=== PATIENT | female | born 1940 | race Two or more races ===

== ENCOUNTER 2017-06-04 12:19 | Inpatient (IN) | payer OTHER ==
[2017-06-04 12:52] VITALS: BMI 26.1
--- NOTE | 2017-06-04 13:55 | PDOC ---
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 Pt is uncooperative with exam; history from daughter who is a nurse and from records. Pt was at her baseline (able to walk and talk without difficulty but cared for by daughter) yesterday until around 3pm when she went for a nap. Daughter states that pt was restless but would not respond or wake up until 8 am today. Daughter describes pt as having intermittent tremors and refusal to speak, take her medications, or even to open her mouth to spit out saliva since waking. Pt normally gets lactulose TID and has not had any since noon yesterday (she's missed 3 doses, so far). Daughter states that she brings pt to hospital typically at least once yearly for the same issue and that this presentation is typical. The problem typically turns out to be hyperammonemia. Last visit to [facility] was in Apr 2016. Pt has been to [facility] since then. Primary is Dr. De La Cruz. Daughter states pt has been afebrile and had no complaint of CP, SOB, nausea, vomiting, dysuria, urinary frequency, burning on urination. Pt has complained of constipation, despite actually having diarrhea due to her lactulose. Pt currently afebrile and stable but uncommunicative. Pt clearly has a mouth full of saliva but refuses to open her mouth even to spit it out. Past History - Past Medical History Allergies/Adverse Reactions: Allergies Allergy/AdvReac Type Severity Reaction Status Date / Time aspirin Allergy Unknown Verified 06/04/17 12:52 Home Medications: Ambulatory Orders Escitalopram Oxalate [Lexapro -] 10 mg PO DAILY 06/11/14 Rifaximin [Xifaxan -] 550 mg PO BID 06/11/14 Spironolactone 25 mg PO DAILY 06/11/14 Lactulose (Oral Use) [Cephulac -] 30 gm PO TID c 05/06/16 Levofloxacin [Levaquin -] 500 mg PO DAILY@0600 #0 tablet 05/06/16 Magnesium Oxide [Mag-Ox -] 400 mg PO BID #10 tablet 05/06/16 Metoprolol Tartrate [Lopressor -] 25 mg PO DAILY tablet 05/06/16 Pantoprazole Sodium [Protonix 40Mg Ivpb (Pre-Docked)] 40 mg IVPB DAILY bag Cardiac Disorders: Yes ([place]) CVA: No COPD: No Dementia: Yes (encephalopathy) GI Disorders: Yes (ULCER) Liver Disease: Yes (cirrhosis) - Surgical History Abdominal Surgery: Yes Cholecystectomy: Yes - Immunization History Immunization Up to Date: No - Suicide/Smoking/Psychosocial Hx Smoking History: Never smoked Have you smoked in the past 12 months: No Information on smoking cessation initiated: No Hx Alcohol Use: No Drug/Substance Use Hx: No Substance Use Type: None Review of Systems - Review of Systems Able to Perform ROS?: Yes Is the patient limited Indian proficient: Yes Constitutional: Yes: Symptoms Reported. No: Chills, Diaphoresis, Fever, Loss of Appetite, Malaise, Night Sweats, Weakness HEENTM: Yes: Symptoms Reported. No: Eye Pain, Blurred Vision, Tearing Respiratory: Yes: Symptoms reported. No: Cough, Orthopnea, Shortness of Breath Cardiac (ROS): Yes: Symptoms Reported. No: Chest Pain, Edema ABD/GI: Yes: Symptoms Reported, Diarrhea (2/2 lactulose), Poor Appetite, Poor Fluid Intake. No: Abdominal Distended, Constipated, Nausea, Vomiting : Yes: Symptoms Reported. No: Burning, Dysuria, Discharge, Hematuria, Incontinence *Physical Exam - Vital Signs Last Vital Signs Temp Pulse Resp BP Pulse Ox 97.5 F L 78 18 145/90 100 06/04/17 12:20 06/04/17 12:20 06/04/17 12:20 06/04/17 12:20 06/04/17 12:20 - Physical Exam Comments: 06/04/17 13:56 Limited exam as pt is uncooperative. General Appearance: Yes: Nourished, Appropriately Dressed. No: Apparent Distress HEENT: negative: Normal ENT Inspection (unable to examine) Neck: positive: Supple. negative: Lymphadenopathy (R), Lymphadenopathy (L) Respiratory/Chest: positive: Lungs Clear (limited exam as pt would not take deep breaths), Normal Breath Sounds. negative: Chest Tender, Respiratory Distress, Accessory Muscle Use, Crackles, Rales Cardiovascular: positive: Regular Rhythm, Regular Rate, S1, S2. negative: Edema , JVD, Murmur Gastrointestinal/Abdominal: positive: Normal Bowel Sounds, Flat, Soft (000). negative: Tender, Organomegaly (none appreciated. Pt would not take deep breaths ) Neurologic: negative: Fully Oriented, Alert, Normal Mood/Affect (pt noncombative and giggles frequently. But uncooperative), Normal Response ED Treatment Course - LABORATORY CBC & Chemistry Diagram: 06/04/17 15:20 06/04/17 15:20 Medical Decision Making - Medical Decision Making 06/04/17 13:59 Pt is a 76 y/o F with PMH recurrent hepatic encephalopathy, cirrhosis 2/2 shistosomiasis, CVA who presents to ED with AMS. Last known baseline was at 3pm yesterday. Pt's daughter states that this is typical of pt's presentation when she has hyperammonemia. Plan -DDx: hyperammonemia, CVA, UTI, PNA -CBC -CMP -PT/INR, PTT -UA, UCx -ammonia -EKG -CXR -Head CT -NS 06/04/17 15:46 -CBC significant for macrocytosis in the absence of anemia. -CXR reveals no significant change from prior. No acute pathology. 06/04/17 16:[address] significant for b/l subdural hematoma 16mm on the left, 2mm midline shift, and kathe denisity call placed to neurosurg (Dr. Rendon) will also call neurology for possible MRI today prior to subdural evacuation, if deemed necessary 06/04/17 17:[address] Mcdonald. No need for MRI at this time. Per Neurosurg, will schedule pt to drain subdural tomorrow around noon. Call placed to Dr. Mejia, admitting PCP. 06/04/17 17:27 Ammonia 55 Pt still cannot take lactulose 06/04/17 17:[address] Mejia who accepts pt for admission. 06/04/17 20:30 *DC/Admit/Observation/Transfer Diagnosis at time of Disposition: Subdural hematoma - Discharge Dispostion Condition at time of disposition: Stable Admit: Yes - Referrals - Patient Instructions - Post Discharge Activity
[2017-06-04] MEDS ORDERED: SODIUM CHLORIDE 0.9% 1000 ML INFUS.BAG IV ONE (14:07)
[2017-06-04 15:41] LABS: BASO % 0.6 % (0-2.0); EOS % 4.1 % (0-4.5); HEMATOCRIT 34.9 % (32.4-45.2); HEMOGLOBIN 11.7 GM/dL (10.7-15.3); LYMPH % 28.6 % (8-40); MCH 34.5 pg (25.7-33.7); MCHC 33.5 g/dl (32.0-36.0); MEAN PLT VOLUME 9.7 fl (7.5-11.1); MONO % 9.1 % (3.8-10.2); NEUT % 57.6 % (42.8-82.8); PLATELET COUNT 225 K/MM3 (134-434); RBC 3.39 M/mm3 (3.60-5.2); RDW 14.3 % (11.6-15.6); WHITE BLOOD COUNT 4.8 K/mm3 (4.0-10.0)
[2017-06-04 15:57] LABS: ALBUMIN 2.4 g/dl (3.4-5.0); ALK PHOS 104 U/L (45-117); ANION GAP 6 (8-16); BILIRUBIN,TOTAL 1.6 mg/dL (0.2-1.0); BLOOD UREA NITROGEN 15 mg/dL (7-18); CALCIUM 8.3 mg/dL (8.5-10.1); CHLORIDE 111 mmol/L (98-107); CO2 25 mmol/L (21-32); CREATININE 0.7 mg/dL (0.55-1.02); GLUCOSE,RANDOM 85 mg/dL (74-106); POTASSIUM 4.1 mmol/L (3.5-5.1); SGOT/AST 36 U/L (15-37); SGPT/ALT 18 U/L (12-78); SODIUM 142 mmol/L (136-145); TOT PROT 6.7 g/dl (6.4-8.2)
--- NOTE | 2017-06-04 16:52 | PDOC ---
Attending Attestation - Resident Resident Name: Jourdan Lawson - ED Attending Attestation I have performed the following: I have examined & evaluated the patient, The case was reviewed & discussed with the resident, I agree w/resident's findings & plan, Exceptions are as noted - HPI HPI: 06/07/17 16:16 See residents HPI - Physicial Exam PE: 06/07/17 16:16 Vitals: Triage Vital signs reviewed General Appearance: no acute distress, well nourished well developed, Head: Atraumatic, Eyes: Pupils equal reactive round, extraocular movement intact Cardiac: Regular rate and rhythym, no murmurs, no rubs, no gallops, Lungs: Clear to auscultation bilateral, good air movement bilaterally, Abdomen: Soft, non distended, normal bowel sounds, non tender to palpation Extremities: Full range of motion to all extremities, no cyanosis, clubbing, or edema Skin: Warm and dry, no rashes or lesions, no rash, no petechiae Neuro: Cranial Nerves 2-12 grossly intact, Strength intact to all extremities, Sensation intact to all extremities Psych: normal mood, normal affect - Critical Care Time Total Critical Care Time: 35 Critical Care Statement: The care of this patient involved high complexity decision making to prevent further life threatening deterioration of the patient 's condition and/or to evaluate & treat vital organ system(s) failure or risk of failure. - Medical Decision Making 06/07/17 16:16 76 years old with hepatic encephalopathy cirrhosis secondary to schistosomiasis , CVA presented to the emergency department altered mental status family states she often gets like this when she becomes encephalopathic. We'll check labs head CT and reassess Reevaluation for [address] significant for bilateral subdural hematoma with 2 mm midline shift Case discussed with Dr. Caballero neurosurgery. Dr. Caballero reviewed all images plan is for drainage tomorrow morning We'll make patient nothing by mouth IV Decadron admit to medicine for further management <Heath Christensen - Last Filed: 06/07/17 16:17> Heart Score/ECG Review - ECG Intrepretation Comment:: 06/04/17 17:07 EKG performed at 14:47 demonstrates rate of 72 bpm, rhythm of normal sinus rhythm, axis equal to normal. Additional findings include: Minimal voltage criteria for LVH, may be normal variant. <Magali Kendall - Last Filed: 06/04/17 17:07>
[2017-06-04 17:44] LABS: URINE APPEARANCE CLEAR; URINE BILIRUBIN NEGATIVE (NEGATIVE); URINE BLOOD NEGATIVE (NEGATIVE); URINE COLOR YELLOW; URINE GLUCOSE (UA) NEGATIVE (NEGATIVE); URINE KETONE NEGATIVE (NEGATIVE); URINE LEUK ESTERASE NEGATIVE (NEGATIVE); URINE NITRITE NEGATIVE (NEGATIVE); URINE PROTEIN NEGATIVE (NEGATIVE); URINE UROBILINOGEN NEGATIVE mg/dL (0.2-1.0)
[2017-06-04] MEDS ORDERED: SODIUM CHLORIDE 1,000 ML IV SCH (19:00)
[2017-06-05 06:13] LABS: BASO % 0.6 % (0-2.0); EOS % 5.6 % (0-4.5); HEMATOCRIT 31.7 % (32.4-45.2); HEMOGLOBIN 10.6 GM/dL (10.7-15.3); LYMPH % 31.9 % (8-40); MCH 34.6 pg (25.7-33.7); MCHC 33.3 g/dl (32.0-36.0); MEAN CELL VOLUME 103.8 fl (80-96); MEAN PLT VOLUME 9.3 fl (7.5-11.1); MONO % 10.8 % (3.8-10.2); NEUT % 51.1 % (42.8-82.8); PLATELET COUNT 201 K/MM3 (134-434); RBC 3.06 M/mm3 (3.60-5.2); RDW 14.2 % (11.6-15.6); WHITE BLOOD COUNT 3.8 K/mm3 (4.0-10.0)
[2017-06-05] MEDS ORDERED: METOPROLOL SUCCINATE 25 MG TAB.SR.24H (FP) PO SCH (10:00)
[2017-06-05] MEDS ORDERED: THROMBIN (BOVINE) 5,000 UNIT VIAL TP ONE ×2 (12:54→14:45)
--- NOTE | 2017-06-05 13:11 | HP ---
Admitting History and Physical - Admission Chief Complaint: 76 y/o fem lives with daughters. w dec apetite weak lethargic over 1 wks time. deneis all other complaints History of Present Illness: has h/o lver cirrhosis etiology ? 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: Dementia Cardiovascular: Yes: CAD, HTN Gastrointestinal: Yes: Other (liver cirrhosis) Hepatobiliary: Yes: Cirrhosis Heme/Onc: Yes: Anemia Infectious Disease: Yes: Other (Schistosomiasis) Musculoskeletal: Yes: Chronic low back pain - Smoking History Smoking history: Never smoked Have you smoked in the past 12 months: No - Alcohol/Substance Use Hx Alcohol Use: No History of Substance Use: reports: None - Social History ADL: Family Assistance History of Recent Travel: No Home Medications - Allergies Allergies/Adverse Reactions: Allergies Allergy/AdvReac Type Severity Reaction Status Date / Time aspirin Allergy Unknown Verified 06/04/17 12:52 - Home Medications Home Medications: Ambulatory Orders Escitalopram Oxalate [Lexapro -] 10 mg PO DAILY 06/11/14 Rifaximin [Xifaxan -] 550 mg PO BID 06/11/14 Spironolactone 25 mg PO DAILY 06/11/14 Lactulose (Oral Use) [Cephulac -] 30 gm PO TID udc 05/06/16 Metoprolol Tartrate [Lopressor -] 25 mg PO DAILY tablet 05/06/16 Pantoprazole Sodium [Protonix 40Mg Ivpb (Pre-Docked)] 40 mg IVPB DAILY bag Family Disease History - Family Disease History Family History: Unremarkable Review of Systems - Review of Systems Constitutional: reports: Unintentional Wgt. Loss Eyes: reports: No Symptoms HENT: reports: No Symptoms Neck: reports: No Symptoms Cardiovascular: reports: No Symptoms Respiratory: reports: No Symptoms Gastrointestinal: reports: No Symptoms Genitourinary: reports: No Symptoms Breasts: reports: No Symptoms Reported, Lumps Integumentary: reports: No Symptoms Neurological: reports: Confusion Endocrine: reports: No Symptoms Hematology/Lymphatic: reports: No Symptoms Psychiatric: reports: Other (oms) Physical Examination Vital Signs: Vital Signs Temperature 97.5 F L 06/04/17 12:20 Pulse Rate 66 06/05/17 12:55 Respiratory Rate 18 06/05/17 12:55 Blood Pressure 153/88 06/05/17 12:55 O2 Sat by Pulse Oximetry (%) 98 06/05/17 12:55 Constitutional: Yes: No Distress, Other (vocally screaming at poeple inapropriately) Eyes: Yes: WNL HENT: Yes: WNL Neck: Yes: WNL Cardiovascular: Yes: WNL Respiratory: Yes: WNL Gastrointestinal: Yes: WNL ...Rectal Exam: Yes: Deferred, Other Breast(s): Yes: WNL Musculoskeletal: Yes: WNL Extremities: Yes: WNL Edema: No Peripheral Pulses WNL: Yes Integumentary: Yes: WNL Neurological: Yes: Confusion, Weakness Psychiatric: Yes: Other (oms) Labs: CBC, BMP 06/05/17 05:48 06/05/17 06:00 Assessment/Plan neuro consult in gi in lactulose? po watch bp if elevated will adrees ppi chk labs in am cleared for sx
[2017-06-05] MEDS ORDERED: LIDOCAINE HCL/PF 2% SDV 5ML VIAL ONE (13:21)
[2017-06-05] MEDS ORDERED: PROPOFOL 20 ML ONE (13:22)
[2017-06-05] MEDS ORDERED: ROCURONIUM BROMIDE 50 MG/5 ML VIAL ONE (13:22)
[2017-06-05] MEDS ORDERED: ceFAZolin SODIUM 1 GM VIAL IVPB ONE (13:40)
[2017-06-05] MEDS ORDERED: ONDANSETRON 4 MG/2 ML VIAL ONE (14:24)
[2017-06-05] MEDS ORDERED: DEXAMETHASONE SOD PHOSPHATE 4 MG/1 ML VIAL ONE (14:24)
[2017-06-05] MEDS ORDERED: NEOSTIGMINE METHYLSULFATE 0.5 MG/ML - 10 ML MDV ONE (14:25)
[2017-06-05] MEDS ORDERED: GLYCOPYRROLATE 0.2 MG/1 ML VIAL ONE ×2 (14:25)
[2017-06-05] MEDS ORDERED: LIDOCAINE 1%/EPI 1:100000 (20 ML MULTI DOSE VIAL) INF ONE (14:46)
[2017-06-05] MEDS ORDERED: oxyCODONE HCL 5 MG TABLET PO PRN (15:10)
[2017-06-05] MEDS ORDERED: ONDANSETRON 4 MG/2 ML VIAL IVPUSH PRN (15:10)
[2017-06-05] MEDS ORDERED: PROMETHAZINE HCL 25 MG/1 ML VIAL IVPUSH PRN (15:10)
[2017-06-05] MEDS: SODIUM CHLORIDE 1,000 ML IV SCH ×2 (16:50→18:08)
--- NOTE | 2017-06-05 17:13 | EKG ---
Test Reason : Blood Pressure : / mmHG Vent. Rate : 072 BPM Atrial Rate : 072 BPM P-R Int : 136 ms QRS Dur : 088 ms QT Int : 446 ms P-R-T Axes : 005 -13 057 degrees QTc Int : 488 ms NORMAL SINUS RHYTHM MINIMAL VOLTAGE CRITERIA FOR LVH, MAY BE NORMAL VARIANT BORDERLINE ECG WHEN COMPARED WITH ECG OF 28-APR-2016 11:09, PREMATURE SUPRAVENTRICULAR COMPLEXES ARE NO LONGER PRESENT Confirmed by EVELIN RAMIREZ MD ([id number]) on 06/05/2017 5:12:50 PM Referred By: Confirmed By:EVELIN RAMIREZ MD
--- NOTE | 2017-06-05 18:54 | CON.GI ---
Consult Consult Specialty:: GI Referred by:: Dr Juan Dickson - History of Present Illness Chief Complaint: Hepaic encephalopathy History of Present Illness: 76 y/o F with PMH of Cirrhosis secondary to schistosomiasis, history of recurrent HE, dementia went to ED because of change in mental status. CT revealed subdural hematoma, s/p evacuation of clot. This evening arousable and more coherent. On admission ammonia levle was mildly elevated. 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: Dementia Cardio/Vascular: Yes: CAD, HTN Gastrointestinal: Yes: Other (liver cirrhosis) Hepatobiliary: Yes: Cirrhosis ...LMP: 06/05/17 Infectious Disease: Yes: Other (Schistosomiasis) Musculoskeletal: Yes: Chronic low back pain - Alcohol/Substance Use Hx Alcohol Use: No History of Substance Use: reports: None - Smoking History Smoking history: Never smoked Have you smoked in the past 12 months: No - Social History ADL: Family Assistance History of Recent Travel: No Home Medications - Allergies Allergies/Adverse Reactions: Allergies Allergy/AdvReac Type Severity Reaction Status Date / Time aspirin Allergy Unknown Verified 06/04/17 12:52 - Home Medications Home Medications: Ambulatory Orders Escitalopram Oxalate [Lexapro -] 10 mg PO DAILY 06/11/14 Rifaximin [Xifaxan -] 550 mg PO BID 06/11/14 Spironolactone 25 mg PO DAILY 06/11/14 Lactulose (Oral Use) [Cephulac -] 30 gm PO TID udc 05/06/16 Metoprolol Tartrate [Lopressor -] 25 mg PO DAILY tablet 05/06/16 Pantoprazole Sodium [Protonix 40Mg Ivpb (Pre-Docked)] 40 mg IVPB DAILY bag Review of Systems Unable to obtain ROS, reason: medical condition Physical Exam-GI Vital Signs: Vital Signs Temperature 98.2 F 06/05/17 16:50 Pulse Rate 77 06/05/17 16:50 Respiratory Rate 18 06/05/17 16:50 Blood Pressure 133/53 06/05/17 16:50 O2 Sat by Pulse Oximetry (%) 98 06/05/17 17:42 Constitutional: Yes: Well Nourished Eyes: Yes: Conjunctiva Clear HENT: Yes: Other (bandage) Neck: Yes: Trachea Midline Cardiovascular: Yes: Regular Rate and Rhythm Respiratory: Yes: CTA Bilaterally ...Auscultate: No: Hypoactive Bowel Sounds ...Palpate: Yes: Soft. No: Guarding, Hepatomegaly, Mass, Pulsatile Mass, Splenomegaly, Tenderness Labs: CBC, BMP 06/05/17 05:48 06/05/17 06:00 CBCD WBC 3.8 K/mm3 (4.0-10.0) L 06/05/17 05:48 RBC 3.06 M/mm3 (3.60-5.2) L 06/05/17 05:48 Hgb 10.6 GM/dL (10.7-15.3) L 06/05/17 05:48 Hct 31.7 % (32.4-45.2) L 06/05/17 05:48 MCV 103.8 fl (80-96) H 06/05/17 05:48 MCHC 33.3 g/dl (32.0-36.0) 06/05/17 05:48 RDW 14.2 % (11.6-15.6) 06/05/17 05:48 Plt Count 201 K/MM3 (134-434) 06/05/17 05:48 MPV 9.3 fl (7.5-11.1) 06/05/17 05:48 CMP Sodium 142 mmol/L (136-145) 06/04/17 15:20 Potassium 4.1 mmol/L (3.5-5.1) 06/04/17 15:20 Chloride 111 mmol/L (98-107) H 06/04/17 15:20 Carbon Dioxide 25 mmol/L (21-32) 06/04/17 15:20 Anion Gap 6 (8-16) L 06/04/17 15:20 BUN 15 mg/dL (7-18) 06/04/17 15:20 Creatinine 0.7 mg/dL (0.55-1.02) 06/04/17 15:20 Creat Clearance w eGFR > 60 (>60) 06/04/17 15:20 Calcium 8.3 mg/dL (8.5-10.1) L 06/04/17 15:20 Total Bilirubin 1.6 mg/dL (0.2-1.0) H D 06/04/17 15:20 AST 36 U/L (15-37) D 06/04/17 15:20 ALT 18 U/L (12-78) 06/04/17 15:20 Alkaline Phosphatase 104 U/L (45-117) 06/04/17 15:20 Total Protein 6.7 g/dl (6.4-8.2) D 06/04/17 15:20 Albumin 2.4 g/dl (3.4-5.0) L 06/04/17 15:20 Problem List - Problems (1) Encephalopathy Assessment/Plan: --mild, liver function is with in normal, there is no evidence of portal HTN. It is highly unlikely that the patient will have severe HE in the near future R> Lactulose 30 cc daily, please recall as necessary Thank you for the consult Code(s): G93.40 - ENCEPHALOPATHY, UNSPECIFIED
--- NOTE | 2017-06-05 19:55 | CONSULT ---
Consult - text type - Consultation Consultation Note: Pulm/CCM Pt seen and examined in the ICU CC: POD #0 L frontal crainiotomy with nii hole/drainage of subdural hematoma HPI: Briefly Ms Aparicio is a 76 y/o woman with dementia, cirrhosis c/b mild hepatic encephalopathy, HTN who presented to ED yesterday with worsening altered mental status, found to have subdural hematoma with mass effect, now s/ p drainage in OR with Dr Marquez. There was no reported LOC, falls, trauma, cx pn, sob, other bleeding. She did have a fall [facility], did no seek eval at that time. Today she tolerated GA and procedure well, was extubated in PACU. Pt was taken for post op CT which showed improvement in mass effect and reduction of subdural . Unfortunately pt pulled out drain while in cat scan. Dr Marquez was notified and felt given small sizeand brought to ICU for overnight observation. 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 Dementia Cardio/Vascular CAD,HTN Gastrointestinal Other (liver cirrhosis) Hepatobiliary Cirrhosis Heme/Onc Anemia Infectious Disease Other (Schistosomiasis) Home Medications Medication Instructions Recorded Escitalopram Oxalate [Lexapro -] 10 mg PO DAILY 06/11/14 Rifaximin [Xifaxan -] 550 mg PO BID 06/11/14 Spironolactone 25 mg PO DAILY 06/11/14 Lactulose (Oral Use) [Cephulac -] 30 gm PO TID udc 05/06/16 Metoprolol Tartrate [Lopressor -] 25 mg PO DAILY tablet 05/06/16 Pantoprazole Sodium [Protonix 40Mg 40 mg IVPB DAILY bag 05/06/16 Ivpb (Pre-Docked)] Social History Smoking history Never smoked Have you smoked in the past 12 No months Hx Alcohol Use No History of Substance Use None Usual Living Arrangement With Spouse ADL Family Assistance ROS: unable due to AMS CT x 2 reviewed EKG: Sinus, normal axis, normal interval, QTC 488 PE: Gen: eld woman, awake, intermittently follows simple commands HEENT: nii hole L frontal dressed, no drainage PULM: clear anterior CV: RRR, no m/r/g appreciated ABD: soft, NT, ND, no hepatosplenomegaly EXT: 2+ pulses throughout Neuro: MORENO x 4, 5/5 all 4ext, symetrical, non-focal exam, intermittently agitated A/ 76 y/o woman with cirrhosis, dementia now pod#0 after crainiotomy/nii hole for subdural P/ -frequent Neuro check -NPO for now -restart rifaxamin and BB in am -low threshold for repeat imaging in mental status does not improve -Overnight ICU observation Oscar Swenson [facility] [id number]
[2017-06-05] MEDS: CHLORHEXIDINE GLUCONATE 4% CLEANSER FOR DECOLONIZATION TP SCH (21:26)
[2017-06-05] MEDS: RIFAXIMIN 550 MG TABLET (UD) PO SCH (21:26)
[2017-06-06] MEDS: SODIUM CHLORIDE 1,000 ML IV SCH ×2 (05:23→20:00)
[2017-06-06] MEDS ORDERED: PANTOPRAZOLE SOD 40 MG SUSPENSION PACKET PO SCH (10:00)
--- NOTE | 2017-06-06 10:01 | PN ---
Progress Note (short form) - Note Progress Note: PULMONARY/CCM Pt seen and examined in the ICU. s/p craniotomy/nii hole for subdural hematoma. Pt pulled out drain overnight. Last Vital Signs Temp Pulse Resp BP Pulse Ox 97.4 F L 69 12 132/55 99 06/06/17 06:00 06/06/17 08:00 06/06/17 08:00 06/06/17 08:00 06/05/17 21:00 Intake & Output 06/03/17 06/04/17 06/05/17 06/06/17 23:59 23:59 23:59 23:59 Intake Total 1850 1200 Output Total 75 Balance 1775 1200 Weight 68.946 kg 70.3 kg Gen: NAD at rest, somnolent but arousable Heart: RRR Lung: decreased breath sounds at the bases Abd: soft, nontender Ext: no edema CBC, BMP 06/05/17 05:48 06/05/17 06:00 Active Medications Chlorhexidine Gluconate (Hibiclens For Decolonization -) 1 applic TP HS [facility] Last Admin: 06/05/17 21:26 Dose: 1 applic Escitalopram Oxalate (Lexapro -) 20 mg PO DAILY [facility] Sodium Chloride (Normal Saline -) 1,000 mls @ 100 mls/hr IV ASDIR [facility] Last Admin: 06/06/17 05:23 Dose: 100 mls/hr Metoprolol Succinate (Toprol Xl -) 25 mg PO DAILY [facility] Mupirocin (Bactroban Ointment (For Decolonization) -) 1 applic NS BID [facility] Stop: 06/10/17 21:59 Last Admin: 06/06/17 00:00 Dose: 1 applic Ondansetron HCl (Zofran Injection) 4 mg IVPUSH Q6H PRN PRN Reason: NAUSEA AND/OR VOMITING Last Admin: 06/05/17 19:40 Dose: 4 mg Oxycodone HCl (Roxicodone -) 5 mg PO Q4H PRN PRN Reason: Pain Level > 4 Stop: 06/06/17 15:09 Pantoprazole Sodium (Protonix -) 40 mg PO DAILY [facility] Rifaximin (Xifaxan -) 550 mg PO BID [facility] Last Admin: 06/05/17 21:26 Dose: Not Given A/P Acute on Chronic Subdural Hematoma s/p [place] Craniotomy/Drainage Liver Cirrhosis HTN CAD h/o CVA Dementia - neuro checks - continue rifaximin - PO as tolerated - re-image if change in mental status - mechanical DVT prophylaxis - can monitor on floor if ok with surgery
[2017-06-06] MEDS: MUPIROCIN 2% TOPICAL OINTMENT FOR DECOLONIZATION NS SCH ×3 (10:15→22:00)
[2017-06-06] MEDS: ESCITALOPRAM OXALATE 20 MG TABLET (FP) PO SCH (10:15)
[2017-06-06] MEDS: RIFAXIMIN 550 MG TABLET (UD) PO SCH ×2 (10:15→22:00)
[2017-06-06] MEDS: PANTOPRAZOLE 40 MG TABLET (FP) PO SCH (10:15)
--- NOTE | 2017-06-06 10:29 | PN ---
Progress Note (short form) - Note Progress Note: Pt resting comfortably in ICU s/p nii holes for subdural hematoma. Doing well , continue current care
[2017-06-06] MEDS: METOPROLOL SUCCINATE 25 MG TAB.SR.24H (FP) PO SCH (11:00)
[2017-06-06 12:24] LABS: BASO % 0.1 % (0-2.0); HEMOGLOBIN 10.3 GM/dL (10.7-15.3); LYMPH % 9.7 % (8-40); MCH 34.4 pg (25.7-33.7); MCHC 33.1 g/dl (32.0-36.0); MEAN PLT VOLUME 8.9 fl (7.5-11.1); NEUT % 85.2 % (42.8-82.8); PLATELET COUNT 188 K/MM3 (134-434); RBC 2.98 M/mm3 (3.60-5.2); RDW 14.3 % (11.6-15.6); WHITE BLOOD COUNT 8.1 K/mm3 (4.0-10.0)
--- NOTE | 2017-06-06 12:25 | CON.NEURO ---
Consult Consult Specialty:: Neurology Referred by:: Dr. Juan Dickson Reason for Consultation:: S/P identification and evacuation of acute on chronic subdural hematoma - History of Present Illness Chief Complaint: Headache followed by lethargy History of Present Illness: Reportedly patient is at baseline confused but interactive and ambulatory. 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 On the day of admission she was complaining of headache and became lethargic prompting admission where she was found to have an acute on chronic subdural hematoma on Head CT. She has had multiple falls since . S/P evacuation of the hematoma she pulled the drain, but has remained awake and alert, albeit at her confused baseline. She has been combative and non- cooperative with staff in blood draws and examination. - History Source History Provided By: Family Member, Medical Record Limitations to Obtaining History: No Limitations - Past Medical History [employer]: Yes: Dementia, Other (hepatic encephalopathy) Cardio/Vascular: Yes: CAD, HTN Gastrointestinal: Yes: Other (liver cirrhosis) Hepatobiliary: Yes: Cirrhosis ...LMP: 06/05/17 Infectious Disease: Yes: Other (Schistosomiasis) Musculoskeletal: Yes: Chronic low back pain - Alcohol/Substance Use Hx Alcohol Use: No History of Substance Use: reports: None - Smoking History Smoking history: Never smoked Have you smoked in the past 12 months: No - Social History ADL: Family Assistance History of Recent Travel: No Home Medications - Allergies Allergies/Adverse Reactions: Allergies Allergy/AdvReac Type Severity Reaction Status Date / Time aspirin Allergy Unknown Verified 06/04/17 12:52 - Home Medications Home Medications: Ambulatory Orders Escitalopram Oxalate [Lexapro -] 10 mg PO DAILY 06/11/14 Rifaximin [Xifaxan -] 550 mg PO BID 06/11/14 Spironolactone 25 mg PO DAILY 06/11/14 Lactulose (Oral Use) [Cephulac -] 30 gm PO TID udc 05/06/16 Metoprolol Tartrate [Lopressor -] 25 mg PO DAILY tablet 05/06/16 Pantoprazole Sodium [Protonix 40Mg Ivpb (Pre-Docked)] 40 mg IVPB DAILY bag Physical Exam-Neuro Vital Signs: Vital Signs Temperature 97.8 F 06/06/17 10:00 Pulse Rate 72 06/06/17 12:00 Respiratory Rate 18 06/06/17 12:00 Blood Pressure 107/81 06/06/17 12:00 O2 Sat by Pulse Oximetry (%) 98 06/06/17 09:30 - Neuro Exam Level Of Consciousness: Yes: Alert, Oriented to Person Eyes: Yes: GWEN Speech: WNL Cranial Nerves II-XII Intact: Yes Babinski: Absent (non cooperative with DTR testing and full motor testing though moves all limbs without apparent limitations) Movement Disorders: Tremors (occaisonal quick myoclonic like tremor of head), Other Gait: Deferred Imaging - Results Cat Scan: Report Reviewed, Image Reviewed (Head CT on admission shows acute on chronic left sided subdural hematoma with mass effect. S/P drainage Head CT shows marked improvement) Problem List - Problems (1) Altered mental state Code(s): R41.82 - ALTERED MENTAL STATUS, UNSPECIFIED Qualifiers: Altered mental status type: transient alteration of awareness Qualified Code(s): R40.4 - Transient alteration of awareness (2) Subdural hematoma Code(s): I62.00 - NONTRAUMATIC SUBDURAL HEMORRHAGE, UNSPECIFIED (3) Cirrhosis of liver Code(s): K74.60 - UNSPECIFIED CIRRHOSIS OF LIVER Qualifiers: Hepatic cirrhosis type: other cirrhosis Qualified Code(s): K74.69 - Other cirrhosis of liver (4) Dementia Code(s): F03.90 - UNSPECIFIED DEMENTIA WITHOUT BEHAVIORAL DISTURBANCE Qualifiers: Dementia type: unspecified type Dementia behavioral disturbance: without behavioral disturbance Qualified Code(s): F03.90 - Unspecified dementia without behavioral disturbance (5) Encephalopathy Code(s): G93.40 - ENCEPHALOPATHY, UNSPECIFIED Assessment/Plan She responded very well to surgical intervention with both radiologic and clinical improvement. Her family reports that she is back to baseline although they note occasional head tremor/jerk which appeared myoclonic and may be due to brief interuption of her treatment for hepatic encephalopathy. We'll sign off for now but please re-consult us if there is any decline. Thanks very much.
[2017-06-06 12:46] LABS: ANION GAP 8 (8-16); BLOOD UREA NITROGEN 19 mg/dL (7-18); CALCIUM 7.3 mg/dL (8.5-10.1); CHLORIDE 113 mmol/L (98-107); CO2 24 mmol/L (21-32); CREATININE 0.7 mg/dL (0.55-1.02); GLUCOSE,RANDOM 113 mg/dL (74-106); POTASSIUM 3.7 mmol/L (3.5-5.1); SODIUM 145 mmol/L (136-145)
--- NOTE | 2017-06-06 14:29 | CONS ---
ADDENDUM DATE OF CONSULTATION: DATE OF DICTATION: 06/06/2017 LABORATORY DATA: CBC, June 06, 2017: WBC count 8100, hemoglobin 10.3 g/dL, platelet count is 188,000. There is macrocytic cell indices. Chemistry: Sodium 145, potassium 3.7, chloride 113, CO2 is 24 mmol/L, BUN 19, creatinine 0.7 mg/dL. Total bilirubin on June 04, 2017, was 1.6, ammonia level on June 04, 2017, was 55.89. X-ray of chest was reported to have no significant interval change of acute cardiopulmonary disease present. CT scan June 04, 2017: Impression: Bilateral acute on chronic subdural hematoma along bilateral cerebral hemisphere (left larger than right), measuring up to 16 mm along the left frontal convexity with compression of bilateral frontotemporal convexities and 2 mm left to right midline shift. No herniation pattern or hydrocephalus. Asymmetric focal hypoattenuation in the left parasagittal kathe, not definitely present on the prior head CT although this may be skull based streak artifact and intrinsic pontine abnormality such as ischemia/edema are not excluded. Please correlate clinically, and with MRI if there are no contraindications. IMPRESSION: 1. Acute on chronic subdural hematoma with recent drainage. 2. History of hypertension, presently normotensive. 3. History of coronary artery disease. 4. Hepatic cirrhosis with portal hypertension and esophageal varices. 5. Cirrhotic encephalopathy. 6. Dementia. RECOMMENDATIONS: 1. Concur with use of beta alejandro for control of blood pressure. 2. Daughter was advised to bring all her medications for reconciliation and also to determine the dose of isosorbide. 3. Followup CBC. 4. Increase ambulation. PROGNOSIS: Critical. Thank you for your referral. Yours sincerely, RASHAD LAMBERT M.D. [id number]
[2017-06-06] MEDS: CHLORHEXIDINE GLUCONATE 4% CLEANSER FOR DECOLONIZATION TP SCH (22:01)
[2017-06-06] MEDS ORDERED: LACTULOSE 20 GM/30 ML UDC (FOR ORAL USE ONLY) PO PRN (22:46)
[2017-06-07 07:23] LABS: BASO % 0.1 % (0-2.0); EOS % 0.3 % (0-4.5); HEMATOCRIT 28.1 % (32.4-45.2); HEMOGLOBIN 9.3 GM/dL (10.7-15.3); LYMPH % 11.7 % (8-40); MCH 34.5 pg (25.7-33.7); MCHC 33.1 g/dl (32.0-36.0); MEAN CELL VOLUME 104.4 fl (80-96); MEAN PLT VOLUME 9.6 fl (7.5-11.1); MONO % 7.3 % (3.8-10.2); NEUT % 80.6 % (42.8-82.8); PLATELET COUNT 170 K/MM3 (134-434); RBC 2.69 M/mm3 (3.60-5.2); RDW 14.3 % (11.6-15.6); WHITE BLOOD COUNT 7.5 K/mm3 (4.0-10.0)
[2017-06-07 07:26] LABS: CALCIUM 7.1 mg/dL (8.5-10.1); CHLORIDE 115 mmol/L (98-107); POTASSIUM 3.9 mmol/L (3.5-5.1); SODIUM 146 mmol/L (136-145)
[2017-06-07 07:32] LABS: ALK PHOS 80 U/L (45-117); ANION GAP 6 (8-16); BILIRUBIN,TOTAL 0.9 mg/dL (0.2-1.0); BLOOD UREA NITROGEN 19 mg/dL (7-18); CO2 25 mmol/L (21-32); CREATININE 0.6 mg/dL (0.55-1.02); GLUCOSE,RANDOM 107 mg/dL (74-106); MAGNESIUM 1.7 mg/dL (1.8-2.4); PHOSPHOROUS 1.5 mg/dL (2.5-4.9); SGOT/AST 43 U/L (15-37); SGPT/ALT 18 U/L (12-78); TOT PROT 5.2 g/dl (6.4-8.2)
--- NOTE | 2017-06-07 09:45 | PN ---
Progress Note, Physician History of Present Illness: pt calm tolerating diet vss nl bm drain self pulled out trasfering to floor ? ? d/c in am got mg level tx low phophate - Current Medication List Current Medications: Active Medications Chlorhexidine Gluconate (Hibiclens For Decolonization -) 1 applic TP HS [facility] Last Admin: 06/06/17 22:01 Dose: 1 applic Escitalopram Oxalate (Lexapro -) 20 mg PO DAILY [facility] Last Admin: 06/06/17 10:15 Dose: 20 mg Sodium Chloride (Normal Saline -) 1,000 mls @ 100 mls/hr IV ASDIR [facility] Last Admin: 06/06/17 20:00 Dose: 100 mls/hr Lactulose (Cephulac (Oral Use)) 20 gm PO Q8H PRN PRN Reason: CONSTIPATION Last Admin: 06/07/17 06:30 Dose: 20 gm Metoprolol Succinate (Toprol Xl -) 25 mg PO DAILY [facility] Last Admin: 06/06/17 11:00 Dose: 25 mg Mupirocin (Bactroban Ointment (For Decolonization) -) 1 applic NS BID [facility] Stop: 06/10/17 21:59 Last Admin: 06/06/17 22:00 Dose: 1 applic Ondansetron HCl (Zofran Injection) 4 mg IVPUSH Q6H PRN PRN Reason: NAUSEA AND/OR VOMITING Last Admin: 06/05/17 19:40 Dose: 4 mg Pantoprazole Sodium (Protonix -) 40 mg PO DAILY [facility] Last Admin: 06/06/17 10:15 Dose: 40 mg Potassium Phos/Sodium Phos (Phos-Nak Packet -) 1 packet PO DAILY [facility] Rifaximin (Xifaxan -) 550 mg PO BID [facility] Last Admin: 06/06/17 22:00 Dose: 550 mg - Objective Vital Signs: Vital Signs Temperature 98.1 F 06/07/17 05:57 Pulse Rate 58 L 06/07/17 08:00 Respiratory Rate 16 06/07/17 08:00 Blood Pressure 129/54 06/07/17 08:00 O2 Sat by Pulse Oximetry (%) 98 06/06/17 21:00 Labs: CBC, BMP 06/07/17 05:20 06/07/17 05:20
--- NOTE | 2017-06-07 10:07 | PN ---
Progress Note (short form) - Note Progress Note: Patient doing very well after drainage of Left acute on chronic subdural hematoma. Patient returned to baseline functioning per family. Wound clean, dry and intact. Postoperative CT shows good drainage and brain expansion. Would not plan elective drainage of Right sided collection. PLAN -patient may be transferred to Regular room or even discharged from Neurosurgery standpoint -skin clip removal on June 30
[2017-06-07] MEDS: MUPIROCIN 2% TOPICAL OINTMENT FOR DECOLONIZATION NS SCH (10:37)
[2017-06-07] MEDS ORDERED: PT OWN MED DRAWER 7, Y5N ONE (10:40)
[2017-06-07] MEDS ORDERED: MAGNESIUM SULF 50% (8.12 MEQ/2 ML-1 GM VIAL) IM ONE (10:40)
[2017-06-07] MEDS: NAPH,MB-DB/K PH,MBDB POWDER PACKET PO SCH (10:41)
[2017-06-07] MEDS: METOPROLOL SUCCINATE 25 MG TAB.SR.24H (FP) PO SCH (10:41)
[2017-06-07] MEDS: ESCITALOPRAM OXALATE 20 MG TABLET (FP) PO SCH (10:41)
[2017-06-07] MEDS: RIFAXIMIN 550 MG TABLET (UD) PO SCH ×3 (10:41→22:36)
[2017-06-07] MEDS: PANTOPRAZOLE 40 MG TABLET (FP) PO SCH (10:41)
[2017-06-07] MEDS: SODIUM CHLORIDE 1,000 ML IV SCH (11:19)
--- NOTE | 2017-06-07 12:22 | PN ---
Teaching Attending Note Name of Resident: Stephanie Alexis ATTENDING PHYSICIAN STATEMENT I saw and evaluated the patient. I reviewed the resident's note and discussed the case with the resident. I agree with the resident's findings and plan as documented. SUBJECTIVE: Pt seen and examined in the ICU. Mental status at baseline. No issues overnight. OBJECTIVE: Last Vital Signs Temp Pulse Resp BP Pulse Ox 98.1 F 72 18 115/46 98 06/07/17 05:57 06/07/17 10:00 06/07/17 10:00 06/07/17 10:00 06/06/17 21:00 Intake & Output 06/04/17 06/05/17 06/06/17 06/07/17 23:59 23:59 23:59 23:59 Intake Total 1850 3000 1200 Output Total 75 Balance 1775 3000 1200 Weight 68.946 kg 70.3 kg 68.9 kg Gen: NAD at rest Heart: RRR Lung: decreased breath sounds at the bases Abd: soft, nontender Ext: no edema CBC, BMP 06/07/17 05:20 06/07/17 05:20 Active Medications Chlorhexidine Gluconate (Hibiclens For Decolonization -) 1 applic TP HS [facility] Last Admin: 06/06/17 22:01 Dose: 1 applic Escitalopram Oxalate (Lexapro -) 20 mg PO DAILY [facility] Last Admin: 06/07/17 10:41 Dose: 20 mg Sodium Chloride (Normal Saline -) 1,000 mls @ 100 mls/hr IV ASDIR [facility] Last Admin: 06/07/17 11:19 Dose: 100 mls/hr Lactulose (Cephulac (Oral Use)) 20 gm PO Q8H PRN PRN Reason: CONSTIPATION Last Admin: 06/07/17 06:30 Dose: 20 gm Metoprolol Succinate (Toprol Xl -) 25 mg PO DAILY [facility] Last Admin: 06/07/17 10:41 Dose: 25 mg Mupirocin (Bactroban Ointment (For Decolonization) -) 1 applic NS BID [facility] Stop: 06/10/17 21:59 Last Admin: 06/07/17 10:37 Dose: 1 applic Ondansetron HCl (Zofran Injection) 4 mg IVPUSH Q6H PRN PRN Reason: NAUSEA AND/OR VOMITING Last Admin: 06/05/17 19:40 Dose: 4 mg Pantoprazole Sodium (Protonix -) 40 mg PO DAILY [facility] Last Admin: 06/07/17 10:41 Dose: 40 mg Potassium Phos/Sodium Phos (Phos-Nak Packet -) 1 packet PO DAILY [facility] Last Admin: 06/07/17 10:41 Dose: 1 packet Rifaximin (Xifaxan -) 550 mg PO BID [facility] Last Admin: 06/07/17 10:41 Dose: 550 mg ASSESSMENT AND PLAN: Acute on Chronic Subdural Hematoma s/p [place] Craniotomy/Drainage Liver Cirrhosis HTN CAD h/o CVA Dementia - neuro checks - continue rifaximin - PO as tolerated - re-image if change in mental status - mechanical DVT prophylaxis - can monitor on floor
[2017-06-07] MEDS ORDERED: LACTULOSE 20 GM/30 ML UDC (FOR ORAL USE ONLY) PO ONE (13:08)
[2017-06-07] MEDS ORDERED: MAGNESIUM SULF 50% (8.12 MEQ/2 ML-1 GM VIAL) ONE (13:44)
[2017-06-07] MEDS ORDERED: MAGNESIUM SULF 50% (8.12 MEQ/2 ML-1 GM VIAL) IVPB ONE (14:06)
[2017-06-07] MEDS ORDERED: LACTULOSE 20 GM/30 ML UDC (FOR ORAL USE ONLY) PO PRN (14:06)
--- NOTE | 2017-06-07 14:54 | PN ---
Physical Exam: SUBJECTIVE: Patient seen and examined. No new complaints overnight. D/W Dr Jerome- s/p craniotomy and repeat CT head patient is improved clinically and on imaging and could be discharged per neurosx. OBJECTIVE: Vital Signs Period Temp Pulse Resp BP Sys/Macias Pulse Ox Last 24 Hr 98.1 F-98.6 F 58-84 13-20 111-143/40-107 98-98 Intake & Output 06/06/17 06/07/17 06/07/17 23:59 11:59 23:59 Intake Total 1800 1200 Balance 1800 1200 Weight 68.9 kg Intake: IV 1200 1200 Normal Saline - 1,000 ml 1200 1200 @ 100 mls/hr IV ASDIR [facility] Rx#:[id number] Oral 600 Other: Voiding Method Incontinent Incontinent # Unmeasured Voids Void 1 2 Weight Measurement Method Built in [facility] GENERAL: The patient is drowsy but arousable. HEAD: L Paramidline anterior scalp dressing on head s/p craniotomy. EYES: Pupils round and reacting bilaterally ENT: oropharynx clear without exudates, moist mucous membranes, edentulous except for two lower incisors. Sating well on RA. NECK: supple. LUNGS: Breath sounds equal, clear to auscultation bilaterally HEART: Regular rate and rhythm, S1, S2 . ABDOMEN: Soft, nontender, nondistended, normoactive bowel sounds EXTREMITIES: 2+ pulses, warm, well-perfused, no edema, No SCDs. NEUROLOGICAL: Drowsy but arousable. gait not observed. Lines: RUE peripheral line Laboratory Results - last 24 hr 06/07/17 06/07/17 06/07/17 05:20 05:20 05:20 WBC 7.5 RBC 2.69 L Hgb 9.3 L Hct 28.1 L MCV 104.4 H MCH 34.5 H MCHC 33.1 RDW 14.3 Plt Count 170 MPV 9.6 Neutrophils % 80.6 Lymphocytes % 11.7 D Monocytes % 7.3 Eosinophils % 0.3 D Basophils % 0.1 Sodium 146 H Potassium 3.9 Chloride 115 H Carbon Dioxide 25 Anion Gap 6 L BUN 19 H Creatinine 0.6 Creat Clearance w eGFR > 60 Random Glucose 107 H Calcium 7.1 L Phosphorus 1.5 L D Magnesium 1.7 L Total Bilirubin 0.9 D AST 43 H ALT 18 Alkaline Phosphatase 80 D Ammonia 82.95 H Total Protein 5.2 L D Albumin 2.0 L 06/07/17 09:11 WBC RBC Hgb Hct MCV MCH MCHC RDW Plt Count MPV Neutrophils % Lymphocytes % Monocytes % Eosinophils % Basophils % Sodium Potassium Chloride Carbon Dioxide Anion Gap BUN Creatinine Creat Clearance w eGFR Random Glucose Calcium Phosphorus Magnesium 1.6 L Total Bilirubin AST ALT Alkaline Phosphatase Ammonia Total Protein Albumin Active Medications Generic Name Dose Route Start Last Admin Trade Name Freq PRN Reason Stop Dose Admin Chlorhexidine Gluconate 1 applic 06/05/17 22:00 06/06/17 22:01 Hibiclens For Decolonization - TP 1 applic HS [facility] Administration Escitalopram Oxalate 20 mg 06/06/17 10:00 06/07/17 10:41 Lexapro - PO 20 mg DAILY [facility] Administration Lactulose 30 gm 06/07/17 14:06 Cephulac (Oral Use) PO DAILY PRN CONSTIPATION Metoprolol Succinate 25 mg 06/06/17 10:00 06/07/17 10:41 Toprol Xl - PO 25 mg DAILY [facility] Administration Mupirocin 1 applic 06/05/17 22:00 06/07/17 10:37 Bactroban Ointment (For Decolonization) - NS 06/10/17 21:59 1 applic BID [facility] Administration Ondansetron HCl 4 mg 06/05/17 15:10 06/05/17 19:40 Zofran Injection IVPUSH 4 mg Q6H PRN Administration NAUSEA AND/OR VOMITING Pantoprazole Sodium 40 mg 06/06/17 10:00 06/07/17 10:41 Protonix - PO 40 mg DAILY [facility] Administration Potassium Phos/Sodium Phos 1 packet 06/07/17 10:00 06/07/17 10:41 Phos-Nak Packet - PO 1 packet DAILY [facility] Administration Rifaximin 550 mg 06/05/17 22:00 06/07/17 10:41 Xifaxan - PO 550 mg BID N[facility] Administration ASSESSMENT/PLAN: 76 yo F with PMHx dementia, recurrent hepatic encephalopathy, cirrhosis likely secondary to schistosomiasis presented with AMS now s/p craniotomy/nii hole for subdural hematoma Neuro/Psych/ GI AMS- likely 2/2 subdural hematoma now s/p nii hole With background hepatic encephalopathy Dementia Patient is improved both clinically and on imaging Discharged per neurosx Still hyperammonemia Cont lactulose 30mg PO tid-titrated for bowel movement Continue Rifaximin 550mg PO bid Stop Iv normal saline @100ml/hr Resume soft feeds Protonix 40mg PO daily Cardio: HTN, CVA, CAD Normotensive Toprolol XL 25 mg PO daily Renal/Fluids/Lines: Lytes Replete as needed Mg So4 Na-Kphosph Repeat BMP- 600pm today Monitor FEN: Stop iv fluids Monitor electrolytes Resume feeds Prophylaxis: SCDs Protonix Dispo: Transfer to Med Surg Visit type - Emergency Visit Emergency Visit: Yes ED Registration Date: 06/04/17 Care time: The patient presented to the Emergency Department on the above date and was hospitalized for further evaluation of their emergent condition. - New Patient This patient is new to me today: Yes Date on this admission: 06/07/17 - Critical Care Critical Care patient: Yes Total Critical Care Time (in minutes): 40 Critical Care Statement: The care of this patient involved high complexity decision making to prevent further life threatening deterioration of the patient 's condition and/or to evaluate & treat vital organ system(s) failure or risk of failure.
[2017-06-07] MEDS ORDERED: ONDANSETRON 4 MG/2 ML VIAL IVPUSH PRN (18:34)
[2017-06-07] MEDS ORDERED: LACTULOSE 20 GM/30 ML UDC (FOR ORAL USE ONLY) PO SCH (22:00)
[2017-06-08 08:45] LABS: BASO % 0.2 % (0-2.0); HEMATOCRIT 28.2 % (32.4-45.2); HEMOGLOBIN 9.2 GM/dL (10.7-15.3); LYMPH % 24.4 % (8-40); MCHC 32.7 g/dl (32.0-36.0); MEAN CELL VOLUME 103.9 fl (80-96); MEAN PLT VOLUME 9.6 fl (7.5-11.1); MONO % 10.2 % (3.8-10.2); NEUT % 61.2 % (42.8-82.8); PLATELET COUNT 168 K/MM3 (134-434); RBC 2.72 M/mm3 (3.60-5.2); RDW 14.2 % (11.6-15.6); WHITE BLOOD COUNT 5.9 K/mm3 (4.0-10.0)
[2017-06-08 08:56] LABS: ALBUMIN 1.8 g/dl (3.4-5.0); ANION GAP 7 (8-16); BILIRUBIN,TOTAL 0.8 mg/dL (0.2-1.0); BLOOD UREA NITROGEN 13 mg/dL (7-18); CHLORIDE 115 mmol/L (98-107); CO2 24 mmol/L (21-32); CREATININE 0.6 mg/dL (0.55-1.02); GLUCOSE,RANDOM 91 mg/dL (74-106); MAGNESIUM 1.8 mg/dL (1.8-2.4); PHOSPHOROUS 1.8 mg/dL (2.5-4.9); POTASSIUM 3.3 mmol/L (3.5-5.1); SGOT/AST 54 U/L (15-37); SGPT/ALT 25 U/L (12-78); SODIUM 146 mmol/L (136-145)
[2017-06-08 08:57] LABS: ALK PHOS 88 U/L (45-117); CALCIUM 7.1 mg/dL (8.5-10.1)
[2017-06-08] MEDS ORDERED: POTASSIUM CHLORIDE 10 MEQ in SODIUM CHLORIDE 100 ML IVPB SCH (10:00)
[2017-06-08] MEDS: SODIUM CHLORIDE 1,000 ML IV SCH ×2 (10:43→23:05)
[2017-06-08] MEDS: NAPH,MB-DB/K PH,MBDB POWDER PACKET PO SCH (10:44)
[2017-06-08] MEDS: ESCITALOPRAM OXALATE 20 MG TABLET (FP) PO SCH (10:44)
[2017-06-08] MEDS: PANTOPRAZOLE 40 MG TABLET (FP) PO SCH (10:45)
[2017-06-08] MEDS: METOPROLOL SUCCINATE 25 MG TAB.SR.24H (FP) PO SCH (10:45)
[2017-06-08] MEDS: RIFAXIMIN 550 MG TABLET (UD) PO SCH ×2 (10:46→21:09)
[2017-06-08] MEDS ORDERED: ACETAMINOPHEN 325 MG TABLET (FP) PO PRN (10:55)
--- NOTE | 2017-06-08 10:55 | PN ---
Progress Note, Physician Chief Complaint: calm touching head low k levels and na high - Current Medication List Current Medications: Active Medications Escitalopram Oxalate (Lexapro -) 20 mg PO DAILY [facility] Last Admin: 06/08/17 10:44 Dose: 20 mg Potassium Chloride 10 meq/ (Sodium Chloride) 105 mls @ 100 mls/hr IVPB Q60M [facility] Stop: 06/08/17 10:59 Sodium Chloride (Normal Saline -) 1,000 mls @ 75 mls/hr IV ASDIR [facility] Last Admin: 06/08/17 10:43 Dose: 75 mls/hr Lactulose (Cephulac (Oral Use)) 30 gm PO DAILY PRN PRN Reason: CONSTIPATION Metoprolol Succinate (Toprol Xl -) 25 mg PO DAILY [facility] Last Admin: 06/08/17 10:45 Dose: 25 mg Ondansetron HCl (Zofran Injection) 4 mg IVPUSH Q6H PRN PRN Reason: NAUSEA AND/OR VOMITING Pantoprazole Sodium (Protonix -) 40 mg PO DAILY [facility] Last Admin: 06/08/17 10:45 Dose: 40 mg Potassium Phos/Sodium Phos (Phos-Nak Packet -) 1 packet PO DAILY [facility] Last Admin: 06/08/17 10:44 Dose: 1 packet Rifaximin (Xifaxan -) 550 mg PO BID [facility] Last Admin: 06/08/17 10:46 Dose: Not Given - Objective Vital Signs: Vital Signs Temperature 98 F 06/08/17 09:54 Pulse Rate 65 06/08/17 09:54 Respiratory Rate 20 06/08/17 09:54 Blood Pressure 147/56 06/08/17 09:54 O2 Sat by Pulse Oximetry (%) 100 06/07/17 21:00 Constitutional: Yes: Anxious Eyes: Yes: WNL HENT: Yes: WNL Neck: Yes: WNL Respiratory: Yes: WNL Gastrointestinal: Yes: WNL, Tenderness, Rebound Genitourinary: Yes: WNL Breast(s): Yes: WNL Musculoskeletal: Yes: WNL Extremities: Yes: WNL Integumentary: Yes: WNL Neurological: Yes: Confusion Labs: CBC, BMP 06/08/17 06:00 06/08/17 06:00 Assessment/Plan replace k iv chk basic in am ?d/c tylenol po
--- NOTE | 2017-06-08 11:00 | CONS ---
DATE OF CONSULTATION: 06/04/2017 CARDIOLOGY CONSULTATION REQUESTED BY: Juan Dickson MD CHIEF COMPLAINT: 1. Headache. 2. Drowsiness. 3. Tremors involving both hands. History was obtained from her daughters. The patient is a 76-year-old female, who hailed from [place], has history of dementia, pseudocyst of the liver with esophageal varices and periods of cirrhotic encephalopathy. Apparently patient has had multiple falls, and the last fall occurred around [facility] ([place], [place]) and patient developed areas of ecchymosis involving the left hindu, face, left hand, and complained of pain involving the rib cage. According to her children, she became lethargic a day prior to admission and this was accompanied by drowsiness and was holding the left side of her head and apparently was complaining of headaches. She also started developing tremors of both hands. Brought to the hospital, was diagnosed to have subdural hematoma and required evacuation. Patient has history of a previous cerebrovascular accident, history of hypertension, and her medications suggest that she has coronary artery disease. On admission, was found to be hypertensive. No history of chest pain or discomfort, according to the daughters. There is no history of palpitations, lightheadedness, dizziness, presyncope or syncope, except for the last episode. There is no history of diabetes mellitus or hypercholesterolemia. PAST HISTORY: As mentioned in the history of present illness. SOCIAL HISTORY: She is , has 3 sons and a daughter who are healthy. She is a nonsmoker and does not imbibe alcohol. FAMILY HISTORY: Father in his 70s, was a diabetic. Mother had Alzheimer's. She had 4 sisters and a brother. One of the sisters had Alzheimer's. She also has other children from a different marriage, who apparently are healthy. ALLERGIES: None reported. MEDICATION: List of medication given by the family were as follows: 1. Nadolol 40 mg p.o. every other day. 2. Isosorbide mononitrate, dose is uncertain, 1 p.o. t.i.d. 3. Lexapro 10 mg p.o. daily. 4. Rifaximin 550 mg p.o. b.i.d. 5. Nexium 40 mg p.o. daily. 6. Lactulose 10 g 1 tablespoon q.i.d. 7. Spironolactone 25 mg p.o. CURRENT MEDICATIONS: 1. Zofran 4 mg IV q.6 h. p.r.n. 2. Rifaximin 550 mg p.o. b.i.d. 3. Mupirocin application b.i.d. 4. Lexapro 20 mg p.o. daily. 5. Metoprolol succinate 25 mg p.o. daily. 6. Chlorhexidine application nightly. 7. Oxycodone 5 mg q.6 h. p.r.n. REVIEW OF SYSTEMS: Constitutional: According to the daughter, there is no history of chills, fever or night sweats. No history of unintentional weight loss. HEENT: History of recent headaches. No history of diplopia, blurred vision. No history of epistaxis, hoarseness, tinnitus, or deafness. Cardiovascular: See documented history. According to the daughter, there has been no chest pain or discomfort. No history of dyspnea either at rest or with exertion. Respiratory: No history of cough, expectoration or hemoptysis. Gastrointestinal: See history of present illness. No history of recent nausea, vomiting, melena, or hematemesis. History of intermittent constipation. No history of abdominal pain or discomfort. Musculoskeletal: No history of myalgias or arthralgias. Central Nervous System: See history of present illness. Endocrine: No history of polyuria or polydipsia. No history of intolerance to cold or warm weather. Hematological: No history of bleeding or ecchymosis. No history of anemia. EXAMINATION: General: A 76-year-old female, who was slightly agitated. There was no pallor, cyanosis, clubbing, or jaundice. Vital Signs: Blood pressure 107/81 mmHg. Pulse 72 beats per minute and regular. Afebrile. Respirations were 18 per minute. Neck: Supple. No jugular venous distention. Carotids were 2+. Upstrokes were normal. Hepatojugular reflux was negative. No bruits were heard and no thyromegaly was present. Heart: PMI was in the 5th intercostal space. No heaves or thrills. S1 and S2 were normal. No murmur or gallops were appreciated. Lungs: Clear on auscultation. Slightly decreased breath sounds at the bases. No extraneous sounds were heard. Extremities: No calf tenderness or dependent edema. Pulses were equal. LABORATORY DATA: ECG: Normal sinus rhythm, borderline voltage criteria for LVH (aVL), left axis deviation, early transition in V2, normal ST and T waves. DICTATION ENDS HERE Lauri [id number]
--- NOTE | 2017-06-08 11:09 | PN ---
Progress Note (short form) - Note Progress Note: Patient at her baseline since decompression. Smiling and interactive while eating breakfast this morning. Says a few words appropriately. Dressing clean, dry and intact. PLAN -patient ready for discharge from Neurosurgery standpoint (Skin clip removal in 2 weeks) -family is very caring and involved with her ADL
[2017-06-08] MEDS: ACETAMINOPHEN 325 MG TABLET (FP) PO PRN ×2 (16:06→23:28)
[2017-06-09 08:49] LABS: CHLORIDE 114 mmol/L (98-107); POTASSIUM 3.9 mmol/L (3.5-5.1); SODIUM 146 mmol/L (136-145)
[2017-06-09 08:53] LABS: ANION GAP 8 (8-16); BLOOD UREA NITROGEN 12 mg/dL (7-18); CALCIUM 7.1 mg/dL (8.5-10.1); CO2 24 mmol/L (21-32); CREATININE 0.5 mg/dL (0.55-1.02); GLUCOSE,RANDOM 80 mg/dL (74-106)
[2017-06-09] MEDS: RIFAXIMIN 550 MG TABLET (UD) PO SCH (11:02)
[2017-06-09] MEDS: ESCITALOPRAM OXALATE 20 MG TABLET (FP) PO SCH (11:02)
[2017-06-09] MEDS: METOPROLOL SUCCINATE 25 MG TAB.SR.24H (FP) PO SCH (11:02)
[2017-06-09] MEDS: SODIUM CHLORIDE 1,000 ML IV SCH (11:03)
[2017-06-09] MEDS: PANTOPRAZOLE 40 MG TABLET (FP) PO SCH (11:03)
[2017-06-09] MEDS: NAPH,MB-DB/K PH,MBDB POWDER PACKET PO SCH (11:03)
[2017-06-09 11:39] VITALS: BP 112/51; PULSE 62; TEMP 97.5
--- NOTE | 2017-06-09 11:45 | PN ---
Progress Note (short form) - Note Progress Note: Consult Specialty:: Neurology Referred by:: Dr. Juan Dickson Reason for Consultation:: S/P identification and evacuation of acute on chronic subdural hematoma - History of Present Illness Chief Complaint: Headache followed by lethargy History of Present Illness: Reportedly patient is at baseline confused but interactive and ambulatory. 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 On the day of admission she was complaining of headache and became lethargic prompting admission where she was found to have an acute on chronic subdural hematoma on Head CT. She has had multiple falls since . S/P evacuation of the hematoma she pulled the drain, but has remained awake and alert, albeit at her confused baseline. She has been combative and non- cooperative with staff in blood draws and examination. FU: pt sleeping comfortably no new issues based on chart - History Source History Provided By: Family Member, Medical Record Limitations to Obtaining History: No Limitations - Past Medical History BEAMSTER: Yes: Dementia, Other (hepatic encephalopathy) Cardio/Vascular: Yes: CAD, HTN Gastrointestinal: Yes: Other (liver cirrhosis) Hepatobiliary: Yes: Cirrhosis ...LMP: 06/05/17 Infectious Disease: Yes: Other (Schistosomiasis) Musculoskeletal: Yes: Chronic low back pain - Alcohol/Substance Use Hx Alcohol Use: No History of Substance Use: reports: None - Smoking History Smoking history: Never smoked Have you smoked in the past 12 months: No - Social History ADL: Family Assistance History of Recent Travel: No Home Medications - Allergies Allergies/Adverse Reactions: Allergies Allergy/AdvReac Type Severity Reaction Status Date / Time aspirin Allergy Unknown Verified 06/04/17 12:52 - Home Medications Home Medications: Ambulatory Orders Escitalopram Oxalate [Lexapro -] 10 mg PO DAILY 06/11/14 Rifaximin [Xifaxan -] 550 mg PO BID 06/11/14 Spironolactone 25 mg PO DAILY 06/11/14 Lactulose (Oral Use) [Cephulac -] 30 gm PO TID udc 05/06/16 Metoprolol Tartrate [Lopressor -] 25 mg PO DAILY tablet 05/06/16 Pantoprazole Sodium [Protonix 40Mg Ivpb (Pre-Docked)] 40 mg IVPB DAILY bag Physical Exam-Neuro Vital Signs: Vital Signs Temperature 97.5 F L 06/09/17 09:00 Pulse Rate 62 06/09/17 09:00 Respiratory Rate 18 06/09/17 09:00 Blood Pressure 112/51 06/09/17 09:00 O2 Sat by Pulse Oximetry (%) 98 06/08/17 21:00 - Neuro Exam Level Of Consciousness: Yes: Alert, Oriented to Person Eyes: Yes: GWEN Speech: WNL Cranial Nerves II-XII Intact: Yes Babinski: Absent (non cooperative with DTR testing and full motor testing though moves all limbs without apparent limitations) Movement Disorders: Tremors (occaisonal quick myoclonic like tremor of head), Other Gait: Deferred Imaging - Results Cat Scan: Report Reviewed, Image Reviewed (Head CT on admission shows acute on chronic left sided subdural hematoma with mass effect. S/P drainage Head CT shows marked improvement) Problem List - Problems (1) Altered mental state Code(s): R41.82 - ALTERED MENTAL STATUS, UNSPECIFIED Qualifiers: Altered mental status type: transient alteration of awareness Qualified Code(s): R40.4 - Transient alteration of awareness (2) Subdural hematoma Code(s): I62.00 - NONTRAUMATIC SUBDURAL HEMORRHAGE, UNSPECIFIED (3) Cirrhosis of liver Code(s): K74.60 - UNSPECIFIED CIRRHOSIS OF LIVER Qualifiers: Hepatic cirrhosis type: other cirrhosis Qualified Code(s): K74.69 - Other cirrhosis of liver (4) Dementia Code(s): F03.90 - UNSPECIFIED DEMENTIA WITHOUT BEHAVIORAL DISTURBANCE Qualifiers: Dementia type: unspecified type Dementia behavioral disturbance: without behavioral disturbance Qualified Code(s): F03.90 - Unspecified dementia without behavioral disturbance (5) Encephalopathy Code(s): G93.40 - ENCEPHALOPATHY, UNSPECIFIED Assessment/Plan s/p subdural evacuation with underlying dementia no new issues CT HD 06/05 decompressed left subdural, chronic right subdural, avoid AP reasonable to check HD CT after two weeks to ensure no further evolution of R subdural (outpt) await placement Dr Terrazas
--- NOTE | 2017-06-09 13:38 | DS ---
Physical Examination Vital Signs: Vital Signs Temperature 97.5 F L 06/09/17 09:00 Pulse Rate 62 06/09/17 09:00 Respiratory Rate 18 06/09/17 09:00 Blood Pressure 112/51 06/09/17 09:00 O2 Sat by Pulse Oximetry (%) 98 06/08/17 21:00 Constitutional: Yes: Well Nourished Eyes: Yes: WNL HENT: Yes: WNL Neck: Yes: WNL Cardiovascular: Yes: WNL Respiratory: Yes: WNL Gastrointestinal: Yes: WNL Integumentary: Yes: WNL Neurological: Yes: WNL ...Motor Strength: WNL Psychiatric: Yes: Agitated Labs: CBC, BMP 06/08/17 06:00 06/09/17 05:40 Discharge Summary Reason For Visit: SUBDURAL HEMATOMA Current Active Problems Subdural hematoma (Acute) Condition: Fair - Instructions Diet, Activity, Other Instructions: CONT TX IS HOME efra to be removed 06/30 Referrals: Aureliano Jean MD, FAANS [Staff Physician] - Toni Marsh MD [Primary Care Provider] - Juan Dickson MD [Staff Physician] - Disposition: HOME - Home Medications Comprehensive Discharge Medication List: Ambulatory Orders Escitalopram Oxalate [Lexapro -] 10 mg PO DAILY 06/11/14 Rifaximin [Xifaxan -] 550 mg PO BID 06/11/14 Lactulose (Oral Use) [Cephulac -] 30 gm PO TID udc 05/06/16 Metoprolol Tartrate [Lopressor -] 25 mg PO DAILY tablet 05/06/16 Pantoprazole Sodium [Protonix 40Mg Ivpb (Pre-Docked)] 40 mg IVPB DAILY bag Acetaminophen [Tylenol .Regular Strength -] 650 mg PO Q4H PRN tablet 06/09/17 Acetaminophen [Tylenol .Regular Strength -] 650 mg PO Q6H PRN tablet 06/09/17 Escitalopram Oxalate [Lexapro -] 20 mg PO DAILY tablet 06/09/17 Lactulose (Oral Use) [Cephulac -] 30 gm PO DAILY PRN udc 06/09/17 Lactulose (Oral Use) [Cephulac -] 30 gm PO TID udc 06/09/17 Metoprolol Succinate [Toprol XL -] 25 mg PO DAILY tab.sr.24h 06/09/17 Naph,Mb-Db/K pH,Mbdb [PHOS-NaK PACKET -] 1 packet PO DAILY pow 06/09/17 Pantoprazole Sodium [Protonix -] 40 mg PO DAILY tablet.ec 06/09/17 Rifaximin [Xifaxan -] 550 mg PO BID tablet 06/09/17
== END 2017-06-09 15:28 | disposition home or self-care (01) | DRG 25 ==
LOC: JER 12:19 → JERBED 17:42 → JICU 06-05 17:00 → J8W 06-07 19:00
PROVIDERS: ADMIT Family Medicine; ATTEND Family Medicine
PROC: 009400Z Drainage of Intracranial Subdural Space with Drainage Device, Open Approach (ICD-10-PCS; principal; 2017-06-05 13:16)
DX: I62.01 Nontraumatic acute subdural hemorrhage (principal); G93.40 Encephalopathy, unspecified; E72.20 Disorder of urea cycle metabolism, unspecified; I62.03 Nontraumatic chronic subdural hemorrhage; R83.9 Unspecified abnormal finding in cerebrospinal fluid; K74.60 Unspecified cirrhosis of liver; K72.10 Chronic hepatic failure without coma; F03.90 Unspecified dementia, unspecified severity, without behavioral disturbance, psychotic disturbance, mood disturbance, and anxiety; Z86.73 Personal history of transient ischemic attack (TIA), and cerebral infarction without residual deficits; I10 Essential (primary) hypertension; I25.10 Atherosclerotic heart disease of native coronary artery without angina pectoris; I25.2 Old myocardial infarction; D75.89 Other specified diseases of blood and blood-forming organs
CPT/HCPCS: 36415; 70450-TC; 71045-TC; 80048; 80053; 81003; 82140; 82652; 83735; 84100; 85025; 85730; 86850; 86900; 86901; 93005; 93010; 94760; 97116-GP; 97161-GP; 99285-25

== ENCOUNTER 2017-08-05 21:33 | Observation (INO) | payer OTHER ==
[2017-08-05 22:09] VITALS: BMI 28.1
--- NOTE | 2017-08-05 22:31 | PDOC ---
History of Present Illness - General Chief Complaint: Weakness Stated Complaint: WEAKNESS Time Seen by Provider: 08/05/17 22:30 History Source: Patient - History of Present Illness Initial Comments: 08/05/17 22:39 76 y.o. female with a PMH of CVA, recent (06/10) acute on chronic subdural hematoma, cirrhosis (as per EMR possibly 2/2 schistomiasis) BIBEMS c/o headache. As per patient's daughter @ bedside patient started clutching her head earlier this afternoon and crying. Patient's daughter notes this is patient's general presentation immediately preceding her evaluation and subsequent admissions for encephalopathy. At presentation patient sleeping, but arousable, follows commands. Patient's daughter notes patient minimally less alert. 08/05/17 23:54 Past History - Past Medical History Allergies/Adverse Reactions: Allergies Allergy/AdvReac Type Severity Reaction Status Date / Time aspirin Allergy Unknown Verified 08/05/17 22:04 Home Medications: Ambulatory Orders Escitalopram Oxalate [Lexapro -] 10 mg PO DAILY 06/11/14 Rifaximin [Xifaxan -] 550 mg PO BID 06/11/14 Lactulose (Oral Use) [Cephulac -] 30 gm PO TID udc 05/06/16 Metoprolol Tartrate [Lopressor -] 25 mg PO DAILY tablet 05/06/16 Pantoprazole Sodium [Protonix 40Mg Ivpb (Pre-Docked)] 40 mg IVPB DAILY bag Acetaminophen [Tylenol .Regular Strength -] 650 mg PO Q4H PRN tablet 06/09/17 Acetaminophen [Tylenol .Regular Strength -] 650 mg PO Q6H PRN tablet 06/09/17 Escitalopram Oxalate [Lexapro -] 20 mg PO DAILY tablet 06/09/17 Lactulose (Oral Use) [Cephulac -] 30 gm PO DAILY PRN udc 06/09/17 Lactulose (Oral Use) [Cephulac -] 30 gm PO TID udc 06/09/17 Metoprolol Succinate [Toprol XL -] 25 mg PO DAILY tab.sr.24h 06/09/17 Naph,Mb-Db/K pH,Mbdb [PHOS-NaK PACKET -] 1 packet PO DAILY pow 06/09/17 Pantoprazole Sodium [Protonix -] 40 mg PO DAILY tablet.ec 06/09/17 Rifaximin [Xifaxan -] 550 mg PO BID tablet 06/09/17 Anemia: Yes Asthma: No Cancer: No Cardiac Disorders: Yes (CA, CAD) CVA: No COPD: No CHF: No Dementia: Yes (encephalopathy) Diabetes: No GI Disorders: Yes (ULCER) Disorders: No HTN: Yes Hypercholesterolemia: No Liver Disease: Yes (cirrhosis) Seizures: No Thyroid Disease: No - Surgical History Abdominal Surgery: Yes Cardiac Surgery: No Cholecystectomy: Yes Lung Surgery: No Neurologic Surgery: No Orthopedic Surgery: No - Immunization History Immunization Up to Date: No - Suicide/Smoking/Psychosocial Hx Smoking History: Never smoked Have you smoked in the past 12 months: No Information on smoking cessation initiated: No Hx Alcohol Use: No Drug/Substance Use Hx: No Substance Use Type: None Review of Systems - Review of Systems Able to Perform ROS?: No *Physical Exam - Vital Signs Last Vital Signs Temp Pulse Resp BP Pulse Ox 98.3 F 50 L 14 114/46 98 08/05/17 22:06 08/05/17 22:06 08/05/17 22:06 08/05/17 22:06 08/05/17 22:06 - Physical Exam General Appearance: Yes: Thin HEENT: positive: EOMI, GWEN, TM Erythema (L sided TM erythema). negative: TM Bulging, TM Dull Neck: positive: Trachea midline, Supple Respiratory/Chest: positive: Lungs Clear Cardiovascular: positive: S1, S2. negative: Edema, JVD, Murmur Gastrointestinal/Abdominal: positive: Normal Bowel Sounds, Soft Musculoskeletal: negative: CVA Tenderness (R), CVA Tenderness (L) Extremity: positive: Normal Capillary Refill, Normal Inspection, Pelvis Stable Integumentary: positive: Normal Color, Dry, Warm Neurologic: positive: Alert, Respond to painful stimul, Other Medical Decision Making - Medical Decision Making 08/05/17 23:03 76 y.o. female PMH of recent acute on chronic subdural hematoma presents to ED c /o headache. Will obtain CT scan + labs to r/o repeat bleed. Patient hemodynamically stable-- will monitor closely while in ED. 08/05/17 23:58 Patient remains hemodynamically stable. Patient signed out to Dr. Marx ( Resident) under the supervision of Dr. Nassef (Attending). *DC/Admit/Observation/Transfer Diagnosis at time of Disposition: Headache - Referrals Referrals: Toni Marsh MD [Primary Care Provider] - - Patient Instructions - Post Discharge Activity
--- NOTE | 2017-08-06 00:38 | PDOC ---
Attending Attestation - Resident Resident Name: Bessie Zazueta - ED Attending Attestation I have performed the following: I have examined & evaluated the patient, The case was reviewed & discussed with the resident, I agree w/resident's findings & plan, Exceptions are as noted - Medical Decision Making 08/06/17 01:43 76yo F hx dementia, recurrent hepatic encephalopathy, recent (06/10) acute on chronic subdural hematoma, cirrhosis, CVA, hypertension, CAD presents to ED with headache and lethargy. Vitals wnl. CTH with acute on chronic SDH. Case discussed with Dr. Caballero, who recommends medical management and no surgical intervention, BP currently 134/80, HOB at 30 degrees. Labs pending, will admit. <Esvin Chaparro - Last Filed: 08/06/17 01:43> - HPI HPI: 08/06/17 01:52 The patient is a 76 year old female, with a significant past medical history of dementia, recurrent hepatic encephalopathy, recent (06/10) acute on chronic subdural hematoma, cirrhosis, CVA, hypertension, CAD, who presents to the emergency department via EMS with, headache. As per the patients daughter at bedside, she reports she noted the patient was holding her head earlier this afternoon and crying. She states the patients presentation was similar to her previous presentation preceding her prior admission for hepatic encephalopathy. Patient is sleeping during presentation but is arousable and follows commands. As per patients daughter, the patient has been behaving slightly less alert than baseline. Family denies recent falls but state that pt is taken care of by an aide sometimes and may have falls that they don't know about. History limited due to patient's dementia. Allergies: Aspirin Primary Care Physician: Dr. Marsh Documentation prepared by Lincoln Bhakta, acting as manager medical affairs for Esvin Chaparro MD. - Physicial Exam PE: 08/06/17 01:53 GENERAL: Awake, holding head HEAD: No signs of trauma EYES: PERRLA, EOMI, sclera anicteric, conjunctiva clear LUNGS: Breath sounds equal, clear to auscultation bilaterally. No wheezes, and no crackles HEART: Regular rate and rhythm, normal S1 and S2, no murmurs, rubs or gallops ABDOMEN: Soft, nontender,mild distention EXTREMITIES: Normal range of motion, no edema. No clubbing or cyanosis. No cords , erythema, or tenderness BACK: No midline spinal tenderness in cervical/thoracic/lumbar region NEUROLOGICAL: awake, responds to painful stimuli, moves all 4 ext spontaneously SKIN: Warm, Dry, normal turgor, no rashes or lesions noted. <Lincoln Bhakta - Last Filed: 08/06/17 01:53>
[2017-08-06 01:05] LABS: BASO % 0.9 % (0-2.0); EOS % 1.8 % (0-4.5); HEMATOCRIT 38.1 % (32.4-45.2); HEMOGLOBIN 12.9 GM/dL (10.7-15.3); LYMPH % 27.3 % (8-40); MCH 34.3 pg (25.7-33.7); MEAN PLT VOLUME 10.8 fl (7.5-11.1); MONO % 7.6 % (3.8-10.2); NEUT % 62.4 % (42.8-82.8); PLATELET COUNT 229 K/MM3 (134-434); RBC 3.77 M/mm3 (3.60-5.2); RDW 13.8 % (11.6-15.6); WHITE BLOOD COUNT 5.3 K/mm3 (4.0-10.0)
[2017-08-06 01:18] LABS: INR 1.34 (0.82-1.09); PROTHROMBIN TIME (PATIENT) 15.1 SEC (9.98-11.88)
[2017-08-06 01:21] LABS: ACTIVATED PTT 26.6 SECONDS (26.9-34.4)
[2017-08-06 01:31] LABS: ALBUMIN 2.3 g/dl (3.4-5.0); ANION GAP 12 (8-16); BILIRUBIN,TOTAL 1.1 mg/dL (0.2-1.0); BLOOD UREA NITROGEN 20 mg/dL (7-18); CALCIUM 8.5 mg/dL (8.5-10.1); CHLORIDE 111 mmol/L (98-107); CO2 22 mmol/L (21-32); CREATININE 0.8 mg/dL (0.55-1.02); GLUCOSE,RANDOM 90 mg/dL (74-106); SGPT/ALT 20 U/L (12-78); SODIUM 145 mmol/L (136-145); TOT PROT 6.8 g/dl (6.4-8.2)
[2017-08-06 01:34] LABS: ALK PHOS 98 U/L (45-117)
[2017-08-06 01:37] LABS: LIPASE 307 U/L (73-393); POTASSIUM 4.8 mmol/L (3.5-5.1)
[2017-08-06 01:38] LABS: MAGNESIUM 2.1 mg/dL (1.8-2.4); SGOT/AST 53 U/L (15-37)
--- NOTE | 2017-08-06 02:26 | PDOC ---
*Physical Exam - Vital Signs Last Vital Signs Temp Pulse Resp BP Pulse Ox 98.3 F 50 L 14 114/46 98 08/05/17 22:06 08/05/17 22:06 08/05/17 22:06 08/05/17 22:06 08/05/17 22:06 - Physical Exam Comments: 08/06/17 04:15 General Appearance: Nourished. No Apparent Distress HEENT: EOMI, GWEN. No Pharyngeal Erythema, Tonsillar Exudate, Tonsillar Erythema Neck: No Cervical Lymphadenopathy Respiratory/Chest: Lungs Clear, Normal Breath Sounds. No Crackles, Rales, Rhonchi, Wheezing Cardiovascular: Regular Rhythm, Regular Rate. No Murmur, Gallops, Rubs Gastrointestinal/Abdominal: Normal Bowel Sounds, Soft. No Guarding, Rebound, Tenderness Musculoskeletal: No CVA Tenderness Extremity: Normal Capillary Refill Integumentary: Normal Color, Dry, Warm Neurologic: Alert, Normal Mood/Affect, Normal Response, ED Treatment Course - LABORATORY CBC & Chemistry Diagram: 08/06/17 00:43 08/06/17 00:43 - ADDITIONAL ORDERS Additional order review: Laboratory Results 08/06/17 08/06/17 08/06/17 00:50 00:43 00:43 PT with INR 15.10 H INR 1.34 H PTT (Actin FS) 26.6 L Sodium 145 Potassium 4.8 Chloride 111 H Carbon Dioxide 22 Anion Gap 12 BUN 20 H Creatinine 0.8 Creat Clearance w eGFR > 60 Random Glucose 90 Calcium 8.5 Magnesium 2.1 Total Bilirubin 1.1 H D AST 53 H ALT 20 Alkaline Phosphatase 98 Ammonia Troponin I 0.07 H B-Natriuretic Peptide Total Protein 6.8 Albumin 2.3 L Lipase 307 Blood Type O POSITIVE Antibody Screen Negative 08/06/17 08/06/17 00:43 00:43 PT with INR INR PTT (Actin FS) Sodium Potassium Chloride Carbon Dioxide Anion Gap BUN Creatinine Creat Clearance w eGFR Random Glucose Calcium Magnesium Total Bilirubin AST ALT Alkaline Phosphatase Ammonia 97.91 H Troponin I B-Natriuretic Peptide 161.42 Total Protein Albumin Lipase Blood Type Antibody Screen 08/06/17 00:43 RBC 3.77 D MCV 101.0 H MCHC 34.0 RDW 13.8 MPV 10.8 D Neutrophils % 62.4 Lymphocytes % 27.3 Monocytes % 7.6 Eosinophils % 1.8 Basophils % 0.9 D Progress Note - Progress Note Progress Note: The patient is a 76 year old female with a history of CVA, recent (06/10) acute on chronic subdural hematoma, cirrhosis (as per EMR possibly 2/2 schistomiasis) BIBEMS c/o headache. The patient was found to have an acute on chronic subdural hematoma on CT scan. The patient is pending admission and consultation with neurosurgery. Medical Decision Making - Medical Decision Making 08/06/17 04:18 We discussed the case with Dr. Jean the patient's previous neurosurgeon who evaluated the images and does not believe the patient requires neurosurgical intervention at this time. We discussed the case with the hospitalist team who accepted the patient for admission. She will be medically managed in the meantime. *DC/Admit/Observation/Transfer Diagnosis at time of Disposition: Subdural hematoma Headache Qualifiers: Headache type: unspecified Headache chronicity pattern: unspecified pattern Intractability: not intractable Qualified Code(s): R51 - Headache - Discharge Dispostion Condition at time of disposition: Stable Admit: Yes - Referrals - Patient Instructions - Post Discharge Activity
--- NOTE | 2017-08-06 04:39 | HP ---
CHIEF COMPLAINT: nausea, headache x 6 hrs PCP: HISTORY OF PRESENT ILLNESS: 76 y/o F with PMH dementia, recurrent hepatic encephalopathy, recent admission for acute on chronic SDH (d/c on 06/10/17. Procedure done by Dr. 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 As per pt's daughter, at 1pm this afternoon, pt was very nauseous, pointed to her chest and had a large episode of emesis. This was witnessed by pt's health aids, it is unknown whether it was NBNB. When the daughter came home at 7pm, she noticed that the pt was holding her head, crying, and was not able to open her eyes. She has also not had a BM in one day. For this reason, she was brought to the ED. Daughter notes that pt has deteriorated over the past month, as she is more somnolent, weak and unable to move as often as prior. Pt was supposed to have a follow up MRI two weeks after d/c in May with Dr. Terrazas, however daughter was not aware of the appointment. At baseline, pt ambulates with walker with heavy assistance from health aid and/ or family. Daughter is not aware of any recent falls, but states that in the past when pt has fallen, she has presented with similar sx as today. Pt also had a single episode of seizures years ago on one such occassion. Today, denies noticed fever, chills, SOB, changes in appetite or in urinary function. ER course was notable for: (1) ammonia level 53 (2) Trop (+) 0.07 (3) Recent Travel: none PAST MEDICAL HISTORY: as above PAST SURGICAL HISTORY: as above, no other surgeries Social History: never worked Smoking: denies ; second hand smoke from Alcohol: denies Drugs: denies Family History: mother - dementia, father- DM, blindness, sister- cancer, type unknown Allergies aspirin Allergy (Unknown, Verified 08/05/17 22:04) HOME MEDICATIONS: Home Medications Medication Instructions Recorded Escitalopram Oxalate [Lexapro -] 10 mg PO DAILY 06/11/14 Rifaximin [Xifaxan -] 550 mg PO BID 06/11/14 Lactulose (Oral Use) [Cephulac -] 30 gm PO TID udc 05/06/16 Metoprolol Tartrate [Lopressor -] 25 mg PO DAILY tablet 05/06/16 Pantoprazole Sodium [Protonix 40Mg 40 mg IVPB DAILY bag 05/06/16 Ivpb (Pre-Docked)] Acetaminophen [Tylenol .Regular 650 mg PO Q4H PRN tablet 06/09/17 Strength -] Acetaminophen [Tylenol .Regular 650 mg PO Q6H PRN tablet 06/09/17 Strength -] Escitalopram Oxalate [Lexapro -] 20 mg PO DAILY tablet 06/09/17 Lactulose (Oral Use) [Cephulac -] 30 gm PO DAILY PRN udc 06/09/17 Lactulose (Oral Use) [Cephulac -] 30 gm PO TID udc 06/09/17 Metoprolol Succinate [Toprol XL -] 25 mg PO DAILY tab.sr.24h 06/09/17 Naph,Mb-Db/K pH,Mbdb [PHOS-NaK 1 packet PO DAILY pow 06/09/17 PACKET -] Pantoprazole Sodium [Protonix -] 40 mg PO DAILY tablet.ec 06/09/17 Rifaximin [Xifaxan -] 550 mg PO BID tablet 06/09/17 REVIEW OF SYSTEMS CONSTITUTIONAL: Absent: fever, chills, diaphoresis, generalized weakness, malaise, loss of appetite, weight change HEENT: Absent: rhinorrhea, nasal congestion, throat pain, throat swelling, difficulty swallowing, mouth swelling, ear pain, eye pain, visual changes CARDIOVASCULAR: Absent: chest pain, syncope, palpitations, irregular heart rate, lightheadedness , peripheral edema RESPIRATORY: Absent: cough, shortness of breath, dyspnea with exertion, orthopnea, wheezing, stridor, hemoptysis GASTROINTESTINAL: +nausea/vomiting Absent: abdominal pain, abdominal distension, nausea, vomiting, diarrhea, constipation, melena, hematochezia GENITOURINARY: Absent: dysuria, frequency, urgency, hesitancy, hematuria, flank pain, genital pain MUSCULOSKELETAL: Absent: myalgia, arthralgia, joint swelling, back pain, neck pain SKIN: Absent: rash, itching, pallor HEMATOLOGIC/IMMUNOLOGIC: Absent: easy bleeding, easy bruising, lymphadenopathy, frequent infections ENDOCRINE: Absent: unexplained weight gain, unexplained weight loss, heat intolerance, cold intolerance NEUROLOGIC: +headache, +change in mental status Absent: headache, focal weakness or paresthesias, dizziness, unsteady gait, seizure, mental status changes, bladder or bowel incontinence PSYCHIATRIC: Absent: anxiety, depression, suicidal or homicidal ideation, hallucinations. PHYSICAL EXAMINATION Vital Signs - 24 hr 08/05/17 22:06 Temperature 98.3 F Pulse Rate 50 L Respiratory 14 Rate Blood Pressure 114/46 O2 Sat by Pulse 98 Oximetry (%) GENERAL: Extremely lethargic. Resting in bed. AAO x 0. Unable to follow commands HEAD: Normal with no signs of trauma. +R scar from evacuation EYES: Pupils equal, round and reactive to light, extraocular movements intact, sclera anicteric, conjunctiva clear. EARS, NOSE, THROAT: Ears normal, nares patent, oropharynx clear without exudates. Moist mucous membranes. NECK: Normal range of motion, supple LUNGS: Poor inspiratory effort. Breath sounds equal, clear to auscultation bilaterally. No wheezes, and no crackles. No accessory muscle use. HEART: Regular rate and rhythm, normal S1 and S2 without murmur, rub or gallop. ABDOMEN: Soft, diffusely TTP, normoactive bowel sounds, no guarding, no rebound LOWER EXTREMITIES: 2+ posterior tibial pulses, warm, well-perfused. No calf tenderness. 2+ pitting edema b/l NEUROLOGICAL: Cranial nerves II-XII appear to be intact. However, pt unresponsive to commands. Laboratory Results 08/06/17 08/06/17 08/06/17 00:43 00:43 00:43 WBC 5.3 RBC 3.77 D Hgb 12.9 D Hct 38.1 D MCV 101.0 H MCH 34.3 H MCHC 34.0 RDW 13.8 Plt Count 229 D MPV 10.8 D Neutrophils % 62.4 Lymphocytes % 27.3 Monocytes % 7.6 Eosinophils % 1.8 Basophils % 0.9 D Alkaline Phosphatase Ammonia 97.91 H Troponin I B-Natriuretic Peptide 161.42 Total Protein 08/06/17 08/06/17 08/06/17 00:43 00:43 00:50 Basophils % PT with INR 15.10 H INR 1.34 H PTT (Actin FS) 26.6 L Sodium 145 Potassium 4.8 Chloride 111 H Carbon Dioxide 22 Anion Gap 12 BUN 20 H Creatinine 0.8 Creat Clearance w eGFR > 60 Random Glucose 90 Calcium 8.5 Magnesium 2.1 Total Bilirubin 1.1 H D AST 53 H ALT 20 Alkaline Phosphatase 98 Ammonia Troponin I 0.07 H B-Natriuretic Peptide Total Protein 6.8 Albumin 2.3 L Lipase 307 TSH 2.10 Blood Type O POSITIVE Antibody Screen Negative IMAGING CTH: acute on chronic SDH - official report pending ASSESSMENT/PLAN: 76 y/o F with PMH dementia, recurrent hepatic encephalopathy, recent admission for acute on chronic SDH (d/c on 06/10/17. Procedure done by Dr. 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 Pt admitted to med-surg for further evaluation of acute on chronic SDH. # Acute on chronic SDH -Neurosurg has been consulted- no need for surgical intervention at this time -Will continue medical management -Elevate HOB 30 degrees -Neurochecks q2hr -Repeat Head CT in AM to check status, whether rebleed -Neuro surg consult: Dr. Ballesteros -Neuro consult: Dr. Terrazas #Hepatic encephalopathy -Dulcolax suppository stat -Continue lactulose 30mg q2h until pt has BM -Once pt has BM, recommend lactulose 30mg TID -Continue rifaximin 550 mg BID -F/u ammonia level; recommend rechecking daily -GI consult: Dr. Chacon #HTN- controlled -last BP 114/46 (MAP 68) -Continue toprol XL 25mg daily #Depression/pseudodementia -Continue lexapro 10mg PO qd #F/E/N -Monitor electrolytes; avoid CBC, BMP immediately with bleed -clear liquid diet. Low protein to avoid exacerbation of encephalopathy will get speech & swallow, prevent aspiration risk d/t dementia #Dispo med surg Visit type - Emergency Visit Emergency Visit: Yes ED Registration Date: 08/06/17 Care time: The patient presented to the Emergency Department on the above date and was hospitalized for further evaluation of their emergent condition. - New Patient This patient is new to me today: Yes Date on this admission: 08/06/17 - Critical Care Critical Care patient: No Hospitalist Screening - Colonoscopy Questionnaire Colonoscopy Questionnaire: Colonoscopy Questionnaire - Patient: 50 - 75 years old and never had a screening colonoscopy: Unknown History of colon or rectal polyps, or CA: Unknown History of IBD, Crohn's disease or UC: Unknown History of abdominal radiation therapy as a child: Unknown - Relative: 1 with colon or rectal CA, or polyps at age 60 or younger: Unknown Colon or rectal CA diagnosed at age 45 or younger: Unknown Multiple relatives with colon or rectal CA: Unknown - Outcome: Screening Result: Negative Screen
[2017-08-06] MEDS: LACTULOSE 20 GM/30 ML UDC (FOR ORAL USE ONLY) PO SCH ×4 (05:04→11:26)
[2017-08-06] MEDS ORDERED: LACTULOSE 20 GM/30 ML UDC (FOR ORAL USE ONLY) ONE (05:07)
--- NOTE | 2017-08-06 05:21 | PN ---
Teaching Attending Note Name of Resident: Jennifer Wick ATTENDING PHYSICIAN STATEMENT I saw and evaluated the patient. I reviewed the resident's note and discussed the case with the resident. I agree with the resident's findings and plan as documented. SUBJECTIVE: 76F with nausea vomiting headache, has a history of SDH s/p nii hole evaluation by Dr. Del Rio. OBJECTIVE: somnolescent, but easily arousable Abd: soft, mild TTP generalized CTH: acute on chronic SDH ASSESSMENT AND PLAN: case discussed with Dr. Del Rio upon review of imagin recommends medical managment on acute on chronic SDH. Part of her somnolescence may be due to hepatic encephalopathy given elevated ammonia level and lack of BM Neuro checks q2, BP controlled, HOB [address] after 12 hours start lactulose q4h until BM, rifaximin GI eval trend ammonia level
[2017-08-06] MEDS: RIFAXIMIN 550 MG TABLET (UD) PO SCH ×2 (05:34→21:39)
[2017-08-06] MEDS ORDERED: BISACODYL 10 MG SUPP.RECT PR ONE (05:36)
--- NOTE | 2017-08-06 07:15 | PN ---
Physical Exam: SUBJECTIVE: Patient seen and examined by me this AM - Per nursing, pt refusing oral medication; per night team, Dr. Marquez recommends no intervention at this time; No significant interval change in chronic BL SDHs; Pt nonverbal w/ interviewer, however appears in no acute distress OBJECTIVE: Vital Signs Intake & Output 08/03/17 08/04/17 08/05/17 08/06/17 23:59 23:59 23:59 23:59 Weight 74.389 kg Period Temp Pulse Resp BP Sys/Macias Pulse Ox Last 24 Hr 98.3 F 50-51 14-16 114-124/46-54 98-99 GENERAL: Nonverbal; however, may be due to language barrier; alert and active HEAD: Normal with no signs of trauma. Prior R surgical scar from evacuation EYES: PERRL, sclera anicteric, conjunctiva clear. No ptosis. NECK: Trachea midline, full range of motion, supple. LUNGS: Breath sounds equal, clear to auscultation bilaterally, no wheezes, no crackles, no accessory muscle use. HEART: Regular rate and rhythm, S1, S2 without murmur, rub or gallop. ABDOMEN: Soft, mildly TTP in all quadrants, nondistended, normoactive bowel sounds, no guarding, no rebound, no hepatosplenomegaly, no masses. EXTREMITIES: 2+ pulses, warm, well-perfused, no edema. 2+ pitting edema in both legs NEUROLOGICAL: Cranial nerves II through XII grossly intact. Nonverbal, gait not observed. SKIN: Warm, dry, normal turgor, no rashes or lesions noted Laboratory Results - last 24 hr CBC, BMP 08/06/17 00:43 08/06/17 00:43 08/06/17 00:43 08/06/17 00:43 08/06/17 08/06/17 08/06/17 00:43 00:43 00:43 WBC 5.3 RBC 3.77 D Hgb 12.9 D Hct 38.1 D MCV 101.0 H MCH 34.3 H MCHC 34.0 RDW 13.8 Plt Count 229 D MPV 10.8 D Neutrophils % 62.4 Lymphocytes % 27.3 Monocytes % 7.6 Eosinophils % 1.8 Basophils % 0.9 D PT with INR INR PTT (Actin FS) Sodium Potassium Chloride Carbon Dioxide Anion Gap BUN Creatinine Creat Clearance w eGFR Random Glucose Calcium Magnesium Total Bilirubin AST ALT Alkaline Phosphatase Ammonia 97.91 H Troponin I B-Natriuretic Peptide 161.42 Total Protein Albumin Lipase TSH Blood Type Antibody Screen 08/06/17 08/06/17 08/06/17 00:43 00:43 00:50 WBC RBC Hgb Hct MCV MCH MCHC RDW Plt Count MPV Neutrophils % Lymphocytes % Monocytes % Eosinophils % Basophils % PT with INR 15.10 H INR 1.34 H PTT (Actin FS) 26.6 L Sodium 145 Potassium 4.8 Chloride 111 H Carbon Dioxide 22 Anion Gap 12 BUN 20 H Creatinine 0.8 Creat Clearance w eGFR > 60 Random Glucose 90 Calcium 8.5 Magnesium 2.1 Total Bilirubin 1.1 H D AST 53 H ALT 20 Alkaline Phosphatase 98 Ammonia Troponin I 0.07 H B-Natriuretic Peptide Total Protein 6.8 Albumin 2.3 L Lipase 307 TSH 2.10 Blood Type O POSITIVE Antibody Screen Negative Active Medications Generic Name Dose Route Start Last Admin Trade Name Freq PRN Reason Stop Dose Admin Escitalopram Oxalate 10 mg 08/06/17 10:00 Lexapro - PO DAILY NAA Lactulose 30 gm 08/06/17 04:15 08/06/17 05:34 Cephulac (Oral Use) PO Not Given Q2H NAA Lactulose 30 gm 08/06/17 14:00 Cephulac (Oral Use) PO TID NAA Metoprolol Succinate 25 mg 08/06/17 10:00 Toprol Xl - PO DAILY NAA Rifaximin 550 mg 08/06/17 04:30 08/06/17 05:34 Xifaxan - PO Not Given BID NAA No micro CXR 08/05 - Normal. No pathology noted CT head 08/06: Impression. No evidence of acute intracranial hemorrhage, edema, midline shift, mass effect, or skull fracture. No CT evidence of acute territorial ischemic changes. Small chronic residual extra-axial fluid collection (subdural hematomas) are noted along the inferior anterior convexities of frontal lobes. The maximal thickness of the left subdural collection dewey. 8 mm, right subdural collection dewey. [address] head 08/06 - No change. No bleeds. ASSESSMENT/PLAN: 76 y/o F with PMH dementia, recurrent hepatic encephalopathy, recent admission for acute on chronic SDH (d/c on 1/18/18. Procedure done by Dr. Jerome - drained L acute on chronic SDH, does not recommend R sided drainage), ? 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 Admitted to M/s for further w/u of [place] , Nausea, MS changes. # Acute on chronic SDH - no significant interval change since prior imaging; no rebleed on repeat head CT -Neurosurg consulted - no surgical intervention at this time -Elevate HOB -Neurochecks q4h -Neuro surg consult - Dr. Salcedo -Neuro consult - Dr. Terrazas #Suspected hepatic encephalopathy - ammonia 97 on presentation; now 68; remote hx of cirrhosis 2/2 shistosomiasis -Dulcolax suppository -Oral lactulose q1h until BM; pt finally taking PO meds after family intervention -After BM, lactulose TID -Continue rifaximin 550 mg BID -trend ammonia; monitor MS -GI consult: Dr. Chacon #HTN- controlled - Continue toprol XL 25mg daily - consider resarting home spironolactone - vitals q4h #Elevated trops - likely noncardiac -trend #Depression/pseudodementia -lexapro 10mg PO qd #F/E/N -PO hydration if tolerating -monitor lytes - clear liquid diet; S+S eval #Dispo MS Plan discussed with Dr. Feliciano Alonso, PGY1 Visit type - Emergency Visit Emergency Visit: Yes ED Registration Date: 08/06/17 Care time: The patient presented to the Emergency Department on the above date and was hospitalized for further evaluation of their emergent condition. - New Patient This patient is new to me today: Yes Date on this admission: 08/07/17 - Critical Care Critical Care patient: No
[2017-08-06] MEDS: ESCITALOPRAM OXALATE 10 MG TABLET (FP) PO SCH (09:19)
[2017-08-06] MEDS: metoPROLOL SUCCINATE 25 MG TAB.SR.24H (FP) PO SCH (09:20)
--- NOTE | 2017-08-06 10:22 | CON.GI ---
Consult Consult Specialty:: GI Reason for Consultation:: altered ms - History of Present Illness History of Present Illness: chart reviewed. As per initial intake: 76 y/o F with PMH dementia, recurrent hepatic encephalopathy, recent admission for acute on chronic SDH (d/c on 06/10/17. Procedure done by Dr. 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 As per pt's daughter, at 1pm this afternoon, pt was very nauseous, pointed to her chest and had a large episode of emesis. This was witnessed by pt's health aids , it is unknown whether it was NBNB. When the daughter came home at 7pm, she noticed that the pt was holding her head, crying, and was not able to open her eyes. She has also not had a BM in one day. For this reason, she was brought to the ED. Daughter notes that pt has deteriorated over the past month, as she is more somnolent, weak and unable to move as often as prior. Pt was supposed to have a follow up MRI two weeks after d/c in May with Dr. Terrazas, however daughter was not aware of the appointment. At baseline, pt ambulates with walker with heavy assistance from health aid and/ or family. Daughter is not aware of any recent falls, but states that in the past when pt has fallen, she has presented with similar sx as today. Pt also had a single episode of seizures years ago on one such occassion. Today, denies noticed fever, chills, SOB, changes in appetite or in urinary function. At the time of this encounter: The patient is not in distress, laying comfortably in her bed. Smiling. Communicative and alert. No asterixis, icterus, distended abdomen, or stigmata of liver cirrhosis on exam. Normal platelet count, mild, chronically elevated total bilirubin with normal ALT and alk phos. Refuses to eat, per nurse. - Past Medical History RUG CLEANER: Yes: Alzheimer's, Dementia, Other (hepatic encephalopathy) Cardio/Vascular: Yes: CAD, HTN Gastrointestinal: Yes: Other (liver cirrhosis) Hepatobiliary: Yes: Cirrhosis ...LMP: 06/05/17 ...: No Infectious Disease: Yes: Other (Schistosomiasis) Musculoskeletal: Yes: Chronic low back pain - Alcohol/Substance Use Hx Alcohol Use: No History of Substance Use: reports: None - Smoking History Smoking history: Never smoked Have you smoked in the past 12 months: No - Social History ADL: Family Assistance History of Recent Travel: No Home Medications - Allergies Allergies/Adverse Reactions: Allergies Allergy/AdvReac Type Severity Reaction Status Date / Time aspirin Allergy Unknown Verified 08/05/17 22:04 - Home Medications Home Medications: Ambulatory Orders Escitalopram Oxalate [Lexapro -] 10 mg PO DAILY 06/11/14 Rifaximin [Xifaxan -] 550 mg PO BID 06/11/14 Lactulose (Oral Use) [Cephulac -] 30 gm PO TID udc 05/06/16 Metoprolol Tartrate [Lopressor -] 25 mg PO DAILY tablet 05/06/16 Pantoprazole Sodium [Protonix 40Mg Ivpb (Pre-Docked)] 40 mg IVPB DAILY bag Acetaminophen [Tylenol .Regular Strength -] 650 mg PO Q4H PRN tablet 06/09/17 Acetaminophen [Tylenol .Regular Strength -] 650 mg PO Q6H PRN tablet 06/09/17 Escitalopram Oxalate [Lexapro -] 20 mg PO DAILY tablet 06/09/17 Lactulose (Oral Use) [Cephulac -] 30 gm PO DAILY PRN udc 06/09/17 Lactulose (Oral Use) [Cephulac -] 30 gm PO TID udc 06/09/17 Metoprolol Succinate [Toprol XL -] 25 mg PO DAILY tab.sr.24h 06/09/17 Naph,Mb-Db/K pH,Mbdb [PHOS-NaK PACKET -] 1 packet PO DAILY pow 06/09/17 Pantoprazole Sodium [Protonix -] 40 mg PO DAILY tablet.ec 06/09/17 Rifaximin [Xifaxan -] 550 mg PO BID tablet 06/09/17 Family Disease History - Family Disease History Family History: Unremarkable Review of Systems Findings/Remarks: Please refer to HPI and H&P. Patient is unable to provide information however some of it is from patient's daughter. Physical Exam-GI Vital Signs: Vital Signs Temperature 98.3 F 08/05/17 22:06 Pulse Rate 58 L 08/06/17 08:13 Respiratory Rate 18 08/06/17 08:13 Blood Pressure 112/45 08/06/17 08:13 O2 Sat by Pulse Oximetry (%) 99 08/06/17 05:44 Constitutional: Yes: No Distress, Calm Eyes: Yes: Conjunctiva Clear HENT: Yes: Atraumatic Neck: Yes: Supple Cardiovascular: Yes: Regular Rate and Rhythm Respiratory: Yes: Regular Gastrointestinal Inspection: No: Ascites, Distention ...Auscultate: Yes: Normoactive Bowel Sounds ...Palpate: Yes: Soft. No: Firm/Rigid, Guarding, Tenderness, Tenderness, Rebound Neurological: Yes: Alert. No: Asterixis Labs: CBC, BMP 08/06/17 00:43 08/06/17 00:43 INR, PTT INR 1.34 (0.82-1.09) H 08/06/17 00:43 Laboratory Tests 08/06/17 08/06/17 08/06/17 00:43 00:43 00:43 WBC 5.3 RBC 3.77 D Hgb 12.9 D Hct 38.1 D MCV 101.0 H MCH 34.3 H MCHC 34.0 RDW 13.8 Plt Count 229 D MPV 10.8 D Neutrophils % 62.4 Lymphocytes % 27.3 Monocytes % 7.6 Eosinophils % 1.8 Basophils % 0.9 D PT with INR INR PTT (Actin FS) Sodium Potassium Chloride Carbon Dioxide Anion Gap BUN Creatinine Creat Clearance w eGFR Random Glucose Calcium Magnesium Total Bilirubin AST ALT Alkaline Phosphatase Ammonia 97.91 H Troponin I B-Natriuretic Peptide 161.42 Total Protein Albumin Lipase TSH Blood Type Antibody Screen 08/06/17 08/06/17 08/06/17 00:43 00:43 00:50 WBC RBC Hgb Hct MCV MCH MCHC RDW Plt Count MPV Neutrophils % Lymphocytes % Monocytes % Eosinophils % Basophils % PT with INR 15.10 H INR 1.34 H PTT (Actin FS) 26.6 L Sodium 145 Potassium 4.8 Chloride 111 H Carbon Dioxide 22 Anion Gap 12 BUN 20 H Creatinine 0.8 Creat Clearance w eGFR > 60 Random Glucose 90 Calcium 8.5 Magnesium 2.1 Total Bilirubin 1.1 H D AST 53 H ALT 20 Alkaline Phosphatase 98 Ammonia Troponin I 0.07 H B-Natriuretic Peptide Total Protein 6.8 Albumin 2.3 L Lipase 307 TSH 2.10 Blood Type O POSITIVE Antibody Screen Negative 08/06/17 08/06/17 08/06/17 06:30 07:30 11:30 WBC RBC Hgb Hct MCV MCH MCHC RDW Plt Count MPV Neutrophils % Lymphocytes % Monocytes % Eosinophils % Basophils % PT with INR INR PTT (Actin FS) Sodium Potassium Chloride Carbon Dioxide Anion Gap BUN Creatinine Creat Clearance w eGFR Random Glucose Calcium Magnesium Total Bilirubin AST ALT Alkaline Phosphatase Ammonia 67.86 H Troponin I 0.04 0.03 B-Natriuretic Peptide Total Protein Albumin Lipase TSH Blood Type Antibody Screen Problem List - Problems (1) Altered mental state Code(s): R41.82 - ALTERED MENTAL STATUS, UNSPECIFIED Qualifiers: Altered mental status type: transient alteration of awareness Qualified Code(s): R40.4 - Transient alteration of awareness (2) CVA (cerebral vascular accident) Code(s): I63.9 - CEREBRAL INFARCTION, UNSPECIFIED (3) Dementia Code(s): F03.90 - UNSPECIFIED DEMENTIA WITHOUT BEHAVIORAL DISTURBANCE Qualifiers: Dementia type: unspecified type Dementia behavioral disturbance: without behavioral disturbance Qualified Code(s): F03.90 - Unspecified dementia without behavioral disturbance (4) Right sided weakness Code(s): M62.81 - MUSCLE WEAKNESS (GENERALIZED) (5) Subdural hematoma Code(s): I62.00 - NONTRAUMATIC SUBDURAL HEMORRHAGE, UNSPECIFIED Assessment/Plan a 76-year-old female with history of liver cirrhosis due to schistosomiasis, per chart. Blood work revealed normal platelet count, mild chronic cholestasis and hypoalbuminemia. No stigmata of liver disease on physical exam. Compensated, advanced liver disease is still possible. Doubt current behavior is a direct consequence of hepatic encephalopathy. Strongly suspect Alzheimer's dementia plus recent CVA event to be the culprit of patient's behavior. Please change lactulose from PO every hour to either by mouth, or NC daily. Okay to continue rifaximin for now. Obtain right upper quadrant ultrasound.
--- NOTE | 2017-08-06 10:34 | EKG ---
Test Reason : Blood Pressure : / mmHG Vent. Rate : 049 BPM Atrial Rate : 049 BPM P-R Int : 148 ms QRS Dur : 094 ms QT Int : 550 ms P-R-T Axes : 067 -03 045 degrees QTc Int : 496 ms SINUS BRADYCARDIA MINIMAL VOLTAGE CRITERIA FOR LVH, MAY BE NORMAL VARIANT PROLONGED QT ABNORMAL ECG WHEN COMPARED WITH ECG OF 04-JUN-2017 14:47, NO SIGNIFICANT CHANGE WAS FOUND Confirmed by RAUDEL CROW MD ([id number]) on 08/06/2017 10:34:10 AM Referred By: Confirmed By:RAUDEL CROW MD
--- NOTE | 2017-08-06 12:16 | CONSULT ---
Admitting History and Physical - Primary Care Physician PCP: Turner Wiggins - Admission History of Present Illness: 76 y/o F with PMH dementia, recurrent hepatic encephalopathy, recent admission for acute on chronic SDH, cirrhosis schistosomiasis, CVA, HTN, CAD, who presents to the ED with c/o nausea and headache over the past six hours. CT- No change On clear liquids. \ Lastr seen by me 2015, tolerated chopped and thin liquids at that time. 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, Other (hepatic encephalopathy) Cardiovascular: Yes: CAD, HTN Gastrointestinal: Yes: Other (liver cirrhosis) Hepatobiliary: Yes: Cirrhosis ...LMP: 06/05/17 ...: No Heme/Onc: Yes: Anemia Infectious Disease: Yes: Other (Schistosomiasis) Musculoskeletal: Yes: Chronic low back pain - Smoking History Smoking history: Never smoked Have you smoked in the past 12 months: No - Alcohol/Substance Use Hx Alcohol Use: No History of Substance Use: reports: None - Social History ADL: Family Assistance History of Recent Travel: No History - Admission Reason For Visit: SUBDURAL HEMATOMA HEADACHE - Diagnostics X-ray: Report Reviewed CT Scan: Report Reviewed - General Mental Status: Awake and Alert, Forgetful, Confused Attention: Mild Impairment Head/Neck Control: Fair - Hearing Hearing: Impaired Hearing Aide: No With Patient: No Speech Evaluation - Communication Primary Language: AUSTRIAN Communication: Yes: Simple Responses - Speech Production Intelligibility: Yes: WNL - Speech Characteristics Voice Loudness: Normal Voice Pitch: Yes: Normal Voice Phonatory-based Quality: Yes: Normal Speech Pattern: Normal Speech Clarity: < 100% Nasal Resonance: Normal Articulation: Yes: Precise Rate of Speech: Intact - Swallow Evaluation/Bedside Assessment Current Nutritional Intake: Clear Liquids Dentition: Yes: Edentulous Lingual Movement: Symmetric Recommendations - Speech Evaluation, Impression/Plan Impression: Verbal,confused, laughing, euphoric, verbalizations with precise speech and good vocal quality, adamently refused any PO trials. - Recommendations Diet Consistency: Dysphagia Pureed Medication Administration: Crushed with applesauce Liquids: Thin Liquids Supplement: Ensure, Ensure Pudding
[2017-08-06] MEDS ORDERED: LACTULOSE 20 GM/30 ML UDC (FOR ORAL USE ONLY) PO SCH ×2 (14:00→15:15)
[2017-08-06] MEDS ORDERED: LACTULOSE 20 GM/30 ML UDC (FOR RECTAL USE ONLY) PR SCH (14:45)
--- NOTE | 2017-08-06 15:13 | PN ---
Progress Note (short form) - Note Progress Note: CT doesn't appear to show acute pathology mandating acute neurosurgical intervention.
--- NOTE | 2017-08-06 17:58 | CON.NEURO ---
Consult Consult Specialty:: Neurology Referred by:: Jahaira Reason for Consultation:: Subdural Hematoma - History of Present Illness Chief Complaint: Headache, nausea History of Present Illness: 76 y/o F with PMH dementia, recurrent hepatic encephalopathy, recent admission for acute on chronic SDH (d/c on 06/10/17. Procedure done by Dr. 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 As per pt's daughter, at 1pm yesterday afternoon, pt was very nauseous, pointed to her chest and had a large episode of emesis. This was witnessed by pt's health aids, it is unknown whether it was NBNB. When the daughter came home at 7pm, she noticed that the pt was holding her head, crying, and was not able to open her eyes. She has also not had a BM in one day. For this reason, she was brought to the ED. Daughter notes that pt has deteriorated over the past month, as she is more somnolent, weak and unable to move as often as prior. Pt was supposed to have a follow up MRI two weeks after d/c in May with my associate Dr. Terrazas, however daughter was not aware of the appointment. At baseline, pt ambulates with walker with heavy assistance from health aid and/ or family. Daughter is not aware of any recent falls, but states that in the past when pt has fallen, she has presented with similar sx as today. Pt also had a single episode of seizures years ago on one such occassion. Today, denies noticed fever, chills, SOB, changes in appetite or in urinary function. 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: Alzheimer's, Dementia, Other (hepatic encephalopathy) Cardio/Vascular: Yes: CAD, HTN Gastrointestinal: Yes: Other (liver cirrhosis) Hepatobiliary: Yes: Cirrhosis ...LMP: 06/05/17 ...: No Infectious Disease: Yes: Other (Schistosomiasis) Musculoskeletal: Yes: Chronic low back pain - Alcohol/Substance Use Hx Alcohol Use: No History of Substance Use: reports: None - Smoking History Smoking history: Never smoked Have you smoked in the past 12 months: No - Social History ADL: Family Assistance History of Recent Travel: No Home Medications - Allergies Allergies/Adverse Reactions: Allergies Allergy/AdvReac Type Severity Reaction Status Date / Time aspirin Allergy Unknown Verified 08/05/17 22:04 - Home Medications Home Medications: Ambulatory Orders Escitalopram Oxalate [Lexapro -] 10 mg PO DAILY 06/11/14 Rifaximin [Xifaxan -] 550 mg PO BID 06/11/14 Lactulose (Oral Use) [Cephulac -] 30 gm PO TID udc 05/06/16 Metoprolol Tartrate [Lopressor -] 25 mg PO DAILY tablet 05/06/16 Pantoprazole Sodium [Protonix 40Mg Ivpb (Pre-Docked)] 40 mg IVPB DAILY bag Acetaminophen [Tylenol .Regular Strength -] 650 mg PO Q4H PRN tablet 06/09/17 Acetaminophen [Tylenol .Regular Strength -] 650 mg PO Q6H PRN tablet 06/09/17 Escitalopram Oxalate [Lexapro -] 20 mg PO DAILY tablet 06/09/17 Lactulose (Oral Use) [Cephulac -] 30 gm PO DAILY PRN udc 06/09/17 Lactulose (Oral Use) [Cephulac -] 30 gm PO TID udc 06/09/17 Metoprolol Succinate [Toprol XL -] 25 mg PO DAILY tab.sr.24h 06/09/17 Naph,Mb-Db/K pH,Mbdb [PHOS-NaK PACKET -] 1 packet PO DAILY pow 06/09/17 Pantoprazole Sodium [Protonix -] 40 mg PO DAILY tablet.ec 06/09/17 Rifaximin [Xifaxan -] 550 mg PO BID tablet 06/09/17 Physical Exam-Neuro Vital Signs: Vital Signs Temperature 98.3 F 08/06/17 14:59 Pulse Rate 60 08/06/17 14:59 Respiratory Rate 18 08/06/17 14:59 Blood Pressure 111/50 08/06/17 14:59 O2 Sat by Pulse Oximetry (%) 99 08/06/17 05:44 Constitutional: Yes: Thin, Other (lying in bed, poorly cooperative with formal testing) Labs: CBC, BMP 08/06/17 00:43 08/06/17 00:43 INR, PTT INR 1.34 (0.82-1.09) H 08/06/17 00:43 - Neuro Exam Level Of Consciousness: Yes: Alert, Oriented to Person Eyes: Yes: GWEN Speech: Other (not cooperative) Cranial Nerves II-XII Intact: Yes DTR's: 1+ Left Bicep, 1+ Right Bicep, 1+ Left Tricep, 1+ Right Tricep Response to light touch: Abnormal (withdraws and yells) Motor Strength: 4/5: Left Arm, Right Arm, Left Leg, Right Leg (moves all but not cooperative with formal testing) Gait: Deferred Imaging - Results Cat Scan: Report Reviewed, Image Reviewed (bilateral small subdrual hematomas, no mass effect) Problem List - Problems (1) Altered mental state Code(s): R41.82 - ALTERED MENTAL STATUS, UNSPECIFIED Qualifiers: Altered mental status type: transient alteration of awareness Qualified Code(s): R40.4 - Transient alteration of awareness (2) Ascites Code(s): R18.8 - OTHER ASCITES Qualifiers: Ascites type: due to alcoholic cirrhosis Qualified Code(s): K70.31 - Alcoholic cirrhosis of liver with ascites (3) CVA (cerebral vascular accident) Code(s): I63.9 - CEREBRAL INFARCTION, UNSPECIFIED (4) Chest pain Code(s): R07.9 - CHEST PAIN, UNSPECIFIED Qualifiers: Chest pain type: chest pain on breathing Qualified Code(s): R07.1 - Chest pain on breathing (5) Cirrhosis of liver Code(s): K74.60 - UNSPECIFIED CIRRHOSIS OF LIVER Qualifiers: Hepatic cirrhosis type: other cirrhosis Qualified Code(s): K74.69 - Other cirrhosis of liver (6) Dementia Code(s): F03.90 - UNSPECIFIED DEMENTIA WITHOUT BEHAVIORAL DISTURBANCE Qualifiers: Dementia type: unspecified type Dementia behavioral disturbance: without behavioral disturbance Qualified Code(s): F03.90 - Unspecified dementia without behavioral disturbance (7) Encephalopathy Code(s): G93.40 - ENCEPHALOPATHY, UNSPECIFIED (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 Continue to treat hepatic encephalopathy and keep ammonia level down. Thanks.
--- NOTE | 2017-08-06 18:12 | PN ---
Teaching Attending Note Name of Resident: Arnold Alonso ATTENDING PHYSICIAN STATEMENT I saw and evaluated the patient. I reviewed the resident's note and discussed the case with the resident. I agree with the resident's findings and plan as documented with exceptions below. SUBJECTIVE: Patient seen and examined. responds to name, denies pain, follows commands occasionally. OBJECTIVE: Vital Signs Period Temp Pulse Resp BP Sys/Macias Pulse Ox Last 24 Hr 98.3 F-98.3 F 50-60 14-18 111-124/45-54 98-99 Intake & Output 08/03/17 08/04/17 08/05/17 08/06/17 23:59 23:59 23:59 23:59 Weight 164 lb 164 lb General: sitting in bed in no acute distress Neuro: facial symmetry, responds to name but unable to assess for further orientation, moves all extremities freely,unable to check for asterexis Abdomen: soft, NT, ND, positive bowel sounds extremities: no edema Home Medication List Medication Instructions Recorded Confirmed Type Escitalopram Oxalate [Lexapro -] 10 mg PO DAILY 06/11/14 06/04/17 History Rifaximin [Xifaxan -] 550 mg PO BID 06/11/14 06/04/17 History Active Medications Generic Name Dose Route Start Last Admin Trade Name Freq PRN Reason Stop Dose Admin Escitalopram Oxalate 10 mg 08/06/17 10:00 08/06/17 09:19 Lexapro - PO Not Given DAILY [facility] Metoprolol Succinate 25 mg 08/06/17 10:00 08/06/17 09:20 Toprol Xl - PO Not Given DAILY NAA Rifaximin 550 mg 08/06/17 04:30 08/06/17 05:34 Xifaxan - PO Not Given BID [facility] Laboratory Results - last 24 hr 08/06/17 08/06/17 08/06/17 00:43 00:43 00:43 WBC 5.3 RBC 3.77 D Hgb 12.9 D Hct 38.1 D MCV 101.0 H MCH 34.3 H MCHC 34.0 RDW 13.8 Plt Count 229 D MPV 10.8 D Neutrophils % 62.4 Lymphocytes % 27.3 Monocytes % 7.6 Eosinophils % 1.8 Basophils % 0.9 D PT with INR INR PTT (Actin FS) Sodium Potassium Chloride Carbon Dioxide Anion Gap BUN Creatinine Creat Clearance w eGFR Random Glucose Calcium Magnesium Total Bilirubin AST ALT Alkaline Phosphatase Ammonia 97.91 H Troponin I B-Natriuretic Peptide 161.42 Total Protein Albumin Lipase TSH Blood Type Antibody Screen 08/06/17 08/06/17 08/06/17 00:43 00:43 00:50 WBC RBC Hgb Hct MCV MCH MCHC RDW Plt Count MPV Neutrophils % Lymphocytes % Monocytes % Eosinophils % Basophils % PT with INR 15.10 H INR 1.34 H PTT (Actin FS) 26.6 L Sodium 145 Potassium 4.8 Chloride 111 H Carbon Dioxide 22 Anion Gap 12 BUN 20 H Creatinine 0.8 Creat Clearance w eGFR > 60 Random Glucose 90 Calcium 8.5 Magnesium 2.1 Total Bilirubin 1.1 H D AST 53 H ALT 20 Alkaline Phosphatase 98 Ammonia Troponin I 0.07 H B-Natriuretic Peptide Total Protein 6.8 Albumin 2.3 L Lipase 307 TSH 2.10 Blood Type O POSITIVE Antibody Screen Negative 08/06/17 08/06/17 08/06/17 06:30 07:30 11:30 WBC RBC Hgb Hct MCV MCH MCHC RDW Plt Count MPV Neutrophils % Lymphocytes % Monocytes % Eosinophils % Basophils % PT with INR INR PTT (Actin FS) Sodium Potassium Chloride Carbon Dioxide Anion Gap BUN Creatinine Creat Clearance w eGFR Random Glucose Calcium Magnesium Total Bilirubin AST ALT Alkaline Phosphatase Ammonia 67.86 H Troponin I 0.04 0.03 B-Natriuretic Peptide Total Protein Albumin Lipase TSH Blood Type Antibody Screen ASSESSMENT AND PLAN: 76 yof with PMhx of dementia, 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 -Chronic SDH -Acute hepatic encephalopathy -Cirrhosis due to shcistosomiasis -Recent Left acute on Chronic SDH drainage Plan: neurosurgery/neurology input appreciated. No additional intervention. GI input. Patient currently not compliant with oral meds, not a candidate for NG tube given recent gastric banding. lactulose enema, neuro checks. speech/swallow input noted, dysphagia puree with meds crushed and thin liquids, add ensure. PT eval Dispo in 24-48 hours pending clinical improvement.
[2017-08-07 09:11] LABS: ALBUMIN 2.4 g/dl (3.4-5.0); ANION GAP 5 (8-16); BLOOD UREA NITROGEN 24 mg/dL (7-18); CALCIUM 7.9 mg/dL (8.5-10.1); CHLORIDE 114 mmol/L (98-107); CO2 25 mmol/L (21-32); CREATININE 0.7 mg/dL (0.55-1.02); GLUCOSE,RANDOM 85 mg/dL (74-106); SGPT/ALT 16 U/L (12-78); SODIUM 144 mmol/L (136-145)
[2017-08-07 09:14] LABS: ALK PHOS 92 U/L (45-117); BILIRUBIN,TOTAL 1.9 mg/dL (0.2-1.0); TOT PROT 6.5 g/dl (6.4-8.2)
[2017-08-07 09:33] LABS: MAGNESIUM 1.7 mg/dL (1.8-2.4); POTASSIUM 4.3 mmol/L (3.5-5.1); SGOT/AST 36 U/L (15-37)
[2017-08-07] MEDS ORDERED: LACTULOSE 20 GM/30 ML UDC (FOR RECTAL USE ONLY) PR ONE (10:15)
--- NOTE | 2017-08-07 10:19 | PN ---
Teaching Attending Note Name of Resident: Ivon Asher ATTENDING PHYSICIAN STATEMENT I saw and evaluated the patient. I reviewed the resident's note and discussed the case with the resident. I agree with the resident's findings and plan as documented with exceptions below. SUBJECTIVE: patient seen and examined. responds to name, when asked about pain, points to her head, no other complaints. OBJECTIVE: Vital Signs Period Temp Pulse Resp BP Sys/Macias Pulse Ox Last 24 Hr 98.0 F-98.6 F 60-68 17-20 109-124/50-64 97-97 Intake & Output 08/04/17 08/05/17 08/06/17 08/07/17 23:59 23:59 23:59 23:59 Weight 164 lb 164 lb general: sitting in bed in no acute distress Chest: poor effort, no rales or wheezing abdomen:soft, NT, ND, positive bowel sounds Neuro: PERRL, oriented to self, able to report symptoms, awake, facial symmetry , moves all extremities freely, further exam limited. Home Medication List Medication Instructions Recorded Confirmed Type Escitalopram Oxalate [Lexapro -] 10 mg PO DAILY 06/11/14 08/06/17 History Nadolol [Corgard -] 40 mg PO DAILY 08/06/17 08/06/17 History Spironolactone [Aldactone] 25 mg PO DAILY 08/06/17 08/06/17 History Active Medications Generic Name Dose Route Start Last Admin Trade Name Freq PRN Reason Stop Dose Admin Escitalopram Oxalate 10 mg 08/06/17 10:00 08/06/17 09:19 Lexapro - PO Not Given DAILY [facility] Lactulose 200 gm 08/07/17 10:15 Cephulac (Rectal Use) CA 08/07/17 10:16 ONCE ONE Metoprolol Succinate 25 mg 08/06/17 10:00 08/06/17 09:20 Toprol Xl - PO Not Given DAILY NAA Rifaximin 550 mg 08/06/17 04:30 08/06/17 21:39 Xifaxan - PO 550 mg BID NAA Administration Laboratory Results - last 24 hr 08/06/17 08/07/17 11:30 08:00 Sodium 144 Potassium 4.3 Chloride 114 H Carbon Dioxide 25 Anion Gap 5 L BUN 24 H Creatinine 0.7 Creat Clearance w eGFR > 60 Random Glucose 85 Calcium 7.9 L Magnesium 1.7 L Total Bilirubin 1.9 H D AST 36 ALT 16 Alkaline Phosphatase 92 Troponin I 0.03 Total Protein 6.5 Albumin 2.4 L Abdominal US - cirrhosis ASSESSMENT AND PLAN: 76 yof with PMhx of dementia, 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 -Chronic SDH -Acute hepatic encephalopathy -Cirrhosis due to shcistosomiasis -Recent Left acute on Chronic SDH drainage Plan: neurosurgery/neurology input appreciated. No additional intervention. GI input. Patient currently not compliant with oral meds, not a candidate for NG tube given recent gastric banding. lactulose enema x 1, neuro checks. speech/swallow input noted, dysphagia puree with meds crushed and thin liquids, add ensure. mental status seems at baseline, currently no agitation or lethargy, confirm with daughter. PT eval Dispo in 24 hours if no new concerns.
[2017-08-07 11:44] LABS: BASO % 0.7 % (0-2.0); EOS % 4.6 % (0-4.5); HEMOGLOBIN 11.9 GM/dL (10.7-15.3); LYMPH % 35.6 % (8-40); MCH 34.6 pg (25.7-33.7); MEAN CELL VOLUME 101.9 fl (80-96); MEAN PLT VOLUME 9.8 fl (7.5-11.1); MONO % 10.9 % (3.8-10.2); NEUT % 48.2 % (42.8-82.8); PLATELET COUNT 185 K/MM3 (134-434); RBC 3.44 M/mm3 (3.60-5.2); RDW 13.3 % (11.6-15.6); WHITE BLOOD COUNT 4.1 K/mm3 (4.0-10.0)
[2017-08-07] MEDS: ESCITALOPRAM OXALATE 10 MG TABLET (FP) PO SCH (11:58)
[2017-08-07] MEDS: RIFAXIMIN 550 MG TABLET (UD) PO SCH ×2 (11:58→21:24)
[2017-08-07] MEDS: metoPROLOL SUCCINATE 25 MG TAB.SR.24H (FP) PO SCH (11:58)
[2017-08-08 08:25] LABS: EOS % 6.5 % (0-4.5); HEMATOCRIT 34.2 % (32.4-45.2); HEMOGLOBIN 11.6 GM/dL (10.7-15.3); LYMPH % 39.3 % (8-40); MCH 34.7 pg (25.7-33.7); MCHC 33.8 g/dl (32.0-36.0); MEAN CELL VOLUME 102.5 fl (80-96); MEAN PLT VOLUME 9.9 fl (7.5-11.1); MONO % 10.1 % (3.8-10.2); NEUT % 43.1 % (42.8-82.8); PLATELET COUNT 169 K/MM3 (134-434); RBC 3.33 M/mm3 (3.60-5.2); RDW 13.4 % (11.6-15.6); WHITE BLOOD COUNT 4.4 K/mm3 (4.0-10.0)
[2017-08-08 08:48] LABS: ALBUMIN 2.3 g/dl (3.4-5.0); ANION GAP 9 (8-16); BILIRUBIN,TOTAL 1.2 mg/dL (0.2-1.0); BLOOD UREA NITROGEN 20 mg/dL (7-18); CALCIUM 7.5 mg/dL (8.5-10.1); CHLORIDE 115 mmol/L (98-107); CO2 22 mmol/L (21-32); CREATININE 0.8 mg/dL (0.55-1.02); GLUCOSE,RANDOM 81 mg/dL (74-106); MAGNESIUM 1.6 mg/dL (1.8-2.4); PHOSPHOROUS 3.6 mg/dL (2.5-4.9); POTASSIUM 3.6 mmol/L (3.5-5.1); SGOT/AST 35 U/L (15-37); SGPT/ALT 18 U/L (12-78); SODIUM 146 mmol/L (136-145); TOT PROT 6.1 g/dl (6.4-8.2)
[2017-08-08 08:49] LABS: ALK PHOS 88 U/L (45-117)
[2017-08-08] MEDS ORDERED: MAGNESIUM SULF 50% (8.12 MEQ/2 ML-1 GM VIAL) IVPB ONE (10:01)
--- NOTE | 2017-08-08 10:10 | DS ---
Physical Exam: SUBJECTIVE: Patient seen and examined, awake and pleasant, no pain or complaints currently, no headache or abdominal pain. OBJECTIVE: Vital Signs Period Temp Pulse Resp BP Sys/Macias Pulse Ox Last 24 Hr 98.0 F-98.7 F 57-64 17-18 110-123/50-63 96-96 PHYSICAL EXAM General: sitting in bed, pleasant in no acute distress, Neuro: oriented to self, facial symmetry, moves all extremities symmetrically, further exam limited, more pleasant today, otherwise exam unchanged CVS:S1s2 regular Chest: poor effort but no rales or wheezing abdomen:soft, NT, ND, positive bowel sounds extremities: no edema LABS Laboratory Results - last 24 hr 08/07/17 08/07/17 08/07/17 11:08 11:08 11:08 WBC 4.1 RBC 3.44 L Hgb 11.9 Hct 35.0 MCV 101.9 H MCH 34.6 H MCHC 34.0 RDW 13.3 Plt Count 185 MPV 9.8 Neutrophils % 48.2 D Lymphocytes % 35.6 D Monocytes % 10.9 H Eosinophils % 4.6 H D Basophils % 0.7 PTT (Actin FS) 28.6 Sodium Potassium Chloride Carbon Dioxide Anion Gap BUN Creatinine Creat Clearance w eGFR Random Glucose Calcium Phosphorus Magnesium Total Bilirubin AST ALT Alkaline Phosphatase Ammonia 143.01 H Total Protein Albumin 08/08/17 08/08/17 07:45 07:45 WBC 4.4 RBC 3.33 L Hgb 11.6 Hct 34.2 MCV 102.5 H MCH 34.7 H MCHC 33.8 RDW 13.4 Plt Count 169 MPV 9.9 Neutrophils % 43.1 Lymphocytes % 39.3 Monocytes % 10.1 Eosinophils % 6.5 H Basophils % 1.0 PTT (Actin FS) Sodium 146 H Potassium 3.6 Chloride 115 H Carbon Dioxide 22 Anion Gap 9 BUN 20 H Creatinine 0.8 Creat Clearance w eGFR > 60 Random Glucose 81 Calcium 7.5 L Phosphorus 3.6 Magnesium 1.6 L Total Bilirubin 1.2 H D AST 35 ALT 18 Alkaline Phosphatase 88 Ammonia Total Protein 6.1 L Albumin 2.3 L HOSPITAL COURSE: Date of Admission:08/06/17 Date of Discharge: 08/08/17 Minutes to complete discharge: 35 Discharge Summary Reason For Visit: SUBDURAL HEMATOMA HEADACHE Hospital Course: Patient had repeat CT brain that was stable. No additional interventions were recommended by Dr Jean from neurosurgery. She was seen by gastroenterology and advised continuation of her lactulose, rifaximin and nadolol. She was intermittent refusing medications but complied with the same with the daughter. Her mental status is currently at her baseline. She was also evaluated by neurology and advised treatment for her hepatic encephalopathy but no additional intervention or imaging. She was noted with hypomagnesemia that was repleted. She was seen by speech/swallow and recommended dysphagia pureed diet with thin liquids and medications crushed in apple sauce. She will be arranged for home services and plan and recommendations were discussed with daughter in detail and she relayed understanding. She is advised outpatient follow up with neurology. Condition: Stable - Instructions Diet, Activity, Other Instructions: 24 hour assist and supervision Please ensure that you take your lactulose and rifaximin. Your lactulose needs to be given so that you have 2-3 loose bowel movements daily. Can take every 4-6 hours to ensure that you have 2-3 loose bowel movements daily. You were evaluated by swallow therapist and recommend dysphagia pureed diet with thin liquids and medications to be crushed in apple sauce. Also recommended ensure pudding 2-3 times daily as patient tolerates. Follow up with your doctor in 1 week Advise follow up with Nini in the next week Referrals: Aureliano Jean MD, FAANS [Staff Physician] - Toni Marsh MD [Primary Care Provider] - Jose Cruz Terrazas DO [Staff Physician] - Disposition: VNS/HOME HEALTH CARE - Home Medications Comprehensive Discharge Medication List: Ambulatory Orders Escitalopram Oxalate [Lexapro -] 10 mg PO DAILY 06/11/14 Lactulose (Oral Use) [Cephulac -] 30 gm PO TID udc 05/06/16 Rifaximin [Xifaxan -] 550 mg PO BID tablet 06/09/17 Nadolol [Corgard -] 40 mg PO DAILY 08/06/17 Spironolactone [Aldactone -] 25 mg PO DAILY 08/06/17 This patient is new to me today: No Emergency Visit: No Critical Care patient: No - Discharge Referral Referred to [facility] No
[2017-08-08] MEDS: metoPROLOL SUCCINATE 25 MG TAB.SR.24H (FP) PO SCH (10:35)
[2017-08-08] MEDS: ESCITALOPRAM OXALATE 10 MG TABLET (FP) PO SCH (10:35)
[2017-08-08] MEDS: RIFAXIMIN 550 MG TABLET (UD) PO SCH (10:35)
[2017-08-08] MEDS ORDERED: MAGNESIUM SULFATE IN WATER 2 GM/50 ML IVPB IVPB ONE (12:30)
[2017-08-08 13:59] VITALS: BP 112/58; PULSE 61; TEMP 98.4
== END 2017-08-08 16:22 | disposition home health service (06) ==
LOC: JER 21:33 → UNDOADMOB 08-06 02:26 → INTOOBSV 08-06 02:26 → JERBED 08-06 02:26 → UNDOADMIN 08-06 02:36 → JERBED 08-06 07:30 → J6S 08-06 07:30 → JERBED 08-06 10:00 → J6S 08-06 10:00
PROVIDERS: ADMIT Internal Medicine; ATTEND Hospitalist
DX: R51 Headache (principal); I62.01 Nontraumatic acute subdural hemorrhage; I62.03 Nontraumatic chronic subdural hemorrhage; K72.90 Hepatic failure, unspecified without coma; K70.31 Alcoholic cirrhosis of liver with ascites; I10 Essential (primary) hypertension; F32.9 Major depressive disorder, single episode, unspecified; R77.8 Other specified abnormalities of plasma proteins; F68.11 Factitious disorder imposed on self, with predominantly psychological signs and symptoms; R40.4 Transient alteration of awareness; I63.9 Cerebral infarction, unspecified; F03.90 Unspecified dementia, unspecified severity, without behavioral disturbance, psychotic disturbance, mood disturbance, and anxiety; M62.81 Muscle weakness (generalized); R07.9 Chest pain, unspecified; G93.40 Encephalopathy, unspecified
CPT/HCPCS: 36415; 70450-TC; 71045-TC-FY; 76705-TC; 80048; 80053; 82140; 83690; 83735; 83880; 84100; 84443; 84484; 85025; 85610; 85730; 86850; 86900; 86901; 93005; 93010; 99285-25; G0378

== ENCOUNTER 2017-09-01 13:30 | Emergency (ER) | payer OTHER ==
[2017-09-01 13:48] VITALS: BP 125/66; PULSE 55; TEMP 98.5; BMI 24.0
--- NOTE | 2017-09-01 15:19 | PDOC ---
History of Present Illness - General Chief Complaint: Injury Stated Complaint: FALL Time Seen by Provider: 09/01/17 14:31 History Source: Patient, Care Provider (daughter), Family Exam Limitations: No Limitations - History of Present Illness Initial Comments: 09/01/17 15:14 CHIEF COMPLAINT: HISTORY OF PRESENT ILLNESS: Patient is a 76-year-old female history of cirrhosis , dementia, anemia, MS, CAD. Patient brought in by daughter, reports patient was walking with daughters assistance, tripped on her own foot and fell forward while he daughter was holding her. She hit the right side of her face, " not hard" as per daughte on the carpet, sustained a abrasion to right lateral upper cheek with swelling and bruising under right eye. No LOC, no vomiting, patient was able to get up and ambulate after. Daughter took her to Dr. Marsh who recommended patient come to emergency department for CT scan of the head. Daughter states that patient was complaining of generalized lower back pain but complains of this frequently. Denies any new complaint. MEDS:[ See medication list] ALLERGIES: [Aspirin] PCP: [Charles] REVIEW OF SYSTEMS: GENERAL/CONSTITUTIONAL: Awake alert and oriented HEAD, EYES, EARS, NOSE AND THROAT: No change in vision. Edema to right lateral Upper cheek with superficial abrasion NO active bleeding. Nares intact. RESPIRATORY: No cough, wheezing, or hemoptysis. CARDIAC: Denies chest pain, no shortness of breathe. MUSCULOSKELETAL: No spinal point tenderness, Good ROM to all four extremeties. NO CVA tenderness. [NO ] lateral neck pain. GI/: Denies abdominal pain, no nausea or vomiting, no bloody stool, no Hematuria. SKIN : No erythema or bruising noted. No abrasion or lacerations. NEUROLOGIC: No loss of consciousness, no numbness or tingling. PHYSICAL EXAM: GENERAL: Awake and alert and oriented x3. EYES: The pupils are equal, round, and reactive to light, with clear, conjunctiva. Good extraocular movement. No nystagmus, no entrapment, swelling with bruising to right lateral lower eyelid NOSE: No nasal trauma . Midface stable MOUTH: Teeth intact. FACE: 3 cm in width superficial abrasion to right zygomatic area. EARS: The ear canals and tympanic membranes are normal without trauma. No drainage. NECK: No Lower cervical C-spine tenderness, no pain with chin to chest. CHEST: The lungs are clear without crackles, or wheezes. No subcutaneous emphysema. No crepitus. HEART: Heart is regular rhythm, with normal S1 and S2, no murmurs. ABDOMEN: The abdomen is soft and nontender with normal bowel sounds. There is no guarding or rebound. MUSCULOSKELETAL: No spinal point tenderness. No bruising or erythema. Pelvis stable. RECTAL: Patient refused. EXTREMITIES: Extremities are normal. No visible traumatic injury. NEUROLOGICAL:Mental status: The patient is oriented x1 which is patient's baseline. No Generalized headache, Romberg [-] Cranial nerves: Cranial nerves II through XII are intact Motor: The upper extremities are 5 over 5 in all muscle groups. The lower extremities are 5 over 5 in all muscle groups. Sensation: Sensation is intact to light touch throughout. Gait: Normal. Heel and toe walking are normal. Tandem gait is normal. SKIN: Without edema, erythema or bruising. Abrasion to right lateral zygomatic area. Past History - Past Medical History Allergies/Adverse Reactions: Allergies Allergy/AdvReac Type Severity Reaction Status Date / Time aspirin Allergy Unknown Verified 09/01/17 13:44 Home Medications: Ambulatory Orders Escitalopram Oxalate [Lexapro -] 10 mg PO DAILY 06/11/14 Lactulose (Oral Use) [Cephulac -] 30 gm PO TID udc 05/06/16 Rifaximin [Xifaxan -] 550 mg PO BID tablet 06/09/17 Nadolol [Corgard -] 40 mg PO DAILY 08/06/17 Spironolactone [Aldactone -] 25 mg PO DAILY 08/06/17 Anemia: Yes Asthma: No Cancer: No Cardiac Disorders: Yes ([place], CAD) CVA: No COPD: No CHF: No Dementia: Yes (encephalopathy) Diabetes: No GI Disorders: Yes (ULCER) Disorders: No HTN: Yes Hypercholesterolemia: No Liver Disease: Yes (cirrhosis) Seizures: No Thyroid Disease: No - Surgical History Abdominal Surgery: Yes Cardiac Surgery: No Cholecystectomy: Yes Lung Surgery: No Neurologic Surgery: No Orthopedic Surgery: No - Immunization History Immunization Up to Date: No - Suicide/Smoking/Psychosocial Hx Smoking History: Never smoked Have you smoked in the past 12 months: No Information on smoking cessation initiated: No Hx Alcohol Use: No Drug/Substance Use Hx: No Substance Use Type: None Hx Substance Use Treatment: No *Physical Exam - Vital Signs Last Vital Signs Temp Pulse Resp BP Pulse Ox 98.5 F 55 L 18 125/66 100 09/01/17 13:44 09/01/17 13:44 09/01/17 13:44 09/01/17 13:44 09/01/17 13:44 ED Treatment Course - RADIOLOGY Radiology Studies Ordered: Category Date Time Status CERVICAL SPINE CT W/O CONTR [CT] Stat CT Scan 09/01/17 14:[address] WITHOUT CONTRAST [CT] Stat CT Scan 09/01/17 14:45 Ordered FACIAL BONES [RAD] Stat Radiology 09/01/17 14:45 Taken Medical Decision Making - Medical Decision Making 09/01/17 15:19 A/P: Patient is a 76-year-old female presents for mechanical fall was being held by her daughter at the time of fall daughter reports the patient did not fall hard but hit the right side of her face on the carpet. Concerned of facial swelling to right zygomatic. Patient sent to CT scan of head, neck and facial bone x-ray, no acute pathology noted. Bacitracin applied to abrasions. Patient to follow-up with Dr. Marsh. Daughter to monitor abrasions for any increased redness swelling or signs of infection. *DC/Admit/Observation/Transfer Diagnosis at time of Disposition: Abrasion of face Qualifiers: Encounter type: initial encounter Qualified Code(s): S00.81XA - Abrasion of other part of head, initial encounter Fall Qualifiers: Encounter type: initial encounter Qualified Code(s): W19.XXXA - Unspecified fall, initial encounter - Discharge Dispostion Disposition: HOME Condition at time of disposition: Good Admit: No - Referrals Referrals: Toni Marsh MD [Primary Care Provider] - - Patient Instructions Printed Discharge Instructions: How to Prevent Falls Additional Instructions: Please monitor abrasions for any increased redness swelling or signs of infection. Recommend follow-up with Dr. Marsh in one week. If any vomiting, increased change in mental status, or any other concerns may return to ER Bacitracin into wound - Post Discharge Activity
== END 2017-09-01 16:37 | disposition home or self-care (01) ==
LOC: JERFT 13:30
DX: S00.81XA Abrasion of other part of head, initial encounter (principal); W01.0XXA Fall on same level from slipping, tripping and stumbling without subsequent striking against object, initial encounter; Y93.89 Activity, other specified; Y92.9 Unspecified place or not applicable; I10 Essential (primary) hypertension; K74.60 Unspecified cirrhosis of liver
CPT/HCPCS: 70150-TC-FY; 70450-TC; 72125-TC; 99281-25

== ENCOUNTER 2018-10-05 14:48 | Inpatient (IN) | payer OTHER ==
--- NOTE | 2018-10-05 15:23 | PDOC ---
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 Per daughter pt has been eating less , has become nonverbal, has stopped ambulating over the last week. Daughter stated pt admitted to intermittent headaches over the last two weeks, which she has chronically had since development of her subdural hematoma. Pt is nonverbal and unable to provide history. Pt has not been taking Lactulose because she has not had bowel movements secondary to decreased PO intake. Allergies: ASA Past History - Past Medical History Allergies/Adverse Reactions: Allergies Allergy/AdvReac Type Severity Reaction Status Date / Time aspirin Allergy Unknown Verified 10/05/18 15:17 Home Medications: Ambulatory Orders Escitalopram Oxalate [Lexapro -] 10 mg PO DAILY 06/11/14 Lactulose (Oral Use) [Cephulac -] 30 gm PO TID udc 05/06/16 Rifaximin [Xifaxan -] 550 mg PO BID tablet 06/09/17 Nadolol [Corgard -] 40 mg PO DAILY 08/06/17 Spironolactone [Aldactone -] 25 mg PO DAILY 08/06/17 Anemia: Yes Asthma: No Cancer: No Cardiac Disorders: Yes ([place], CAD) CVA: No COPD: No CHF: No Dementia: Yes (encephalopathy) Diabetes: No GI Disorders: Yes (ULCER) Disorders: No HTN: Yes Hypercholesterolemia: No Liver Disease: Yes (cirrhosis) Seizures: No Thyroid Disease: No - Surgical History Abdominal Surgery: Yes Cardiac Surgery: No Cholecystectomy: Yes Lung Surgery: No Neurologic Surgery: No Orthopedic Surgery: No - Immunization History Immunization Up to Date: No - Suicide/Smoking/Psychosocial Hx Smoking History: Never smoked Have you smoked in the past 12 months: No Information on smoking cessation initiated: No Hx Alcohol Use: No Drug/Substance Use Hx: No Substance Use Type: None Hx Substance Use Treatment: No Review of Systems - Review of Systems Able to Perform ROS?: No Comments:: 10/05/18 15:57 Unable to perform ROS, pt nonverbal. *Physical Exam - Vital Signs Last Vital Signs Temp Pulse Resp BP Pulse Ox 97.4 F L 74 16 142/51 L 99 10/05/18 15:00 10/05/18 15:00 10/05/18 15:00 10/05/18 15:00 10/05/18 15:00 - Physical Exam General Appearance: Yes: Thin, Other (laughing, smiling) HEENT: positive: EOMI, GWEN Neck: positive: Trachea midline, Supple Respiratory/Chest: positive: Lungs Clear, Normal Breath Sounds. negative: Crackles, Rales, Stridor, Wheezing Cardiovascular: positive: Regular Rhythm, Regular Rate. negative: Murmur Gastrointestinal/Abdominal: positive: Normal Bowel Sounds, Flat, Soft. 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 Initial Vital Signs Temp Pulse Resp BP Pulse Ox 97.4 F L 74 16 142/51 L 99 10/05/18 15:00 10/05/18 15:00 10/05/18 15:00 10/05/18 15:00 10/05/18 15:00 Afebrile. No tachycardia. No tachypnea. Mild systolic hypertension. Mild diastolic hypotension. No hypoxia on room air. Labs ordered: CBC, CMP, troponin, ammonia, UA/UC Imaging ordered: CT head, CXR Medications ordered: D5-1/2 normal @70cc/hour EKG performed at 1631: rate 62, regular rhythm, left axis, normal intervals, nonspecific ST changes. 10/05/18 16:36 CBC WBC 4.4 K/mm3 (4.0-10.0) 10/05/18 15:49 RBC 3.75 M/mm3 (3.60-5.2) 10/05/18 15:49 Hgb 12.8 GM/dL (10.7-15.3) 10/05/18 15:49 Hct 39.2 % (32.4-45.2) 10/05/18 15:49 MCV 104.7 fl (80-96) H 10/05/18 15:49 MCH 34.2 pg (25.7-33.7) H 10/05/18 15:49 MCHC 32.6 g/dl (32.0-36.0) 10/05/18 15:49 RDW 14.4 % (11.6-15.6) 10/05/18 15:49 Plt Count 169 K/MM3 (134-434) D 10/05/18 15:49 MPV 9.9 fl (7.5-11.1) 10/05/18 15:49 Absolute Neuts (auto) 2.1 K/mm3 (1.5-8.0) 10/05/18 15:49 Neutrophils % 48.3 % (42.8-82.8) 10/05/18 15:49 Lymphocytes % 37.3 % (8-40) 10/05/18 15:49 Monocytes % 8.2 % (3.8-10.2) 10/05/18 15:49 Eosinophils % 5.5 % (0-4.5) H 10/05/18 15:49 Basophils % 0.7 % (0-2.0) 10/05/18 15:49 Nucleated RBC % 0 % (0-0) 10/05/18 15:49 No leukocytosis. No anemia. Elevated MCV. Elevated eosinophils. 10/05/18 19:29 Ct head report: chronic subdural. no acute changes. 10/05/18 20:27 Urine Test Results Urine Color Yellow 10/05/18 17:20 Urine Appearance Cloudy 10/05/18 17:20 Urine pH 5.5 (5.0-8.0) D 10/05/18 17:20 Ur Specific [place] 1.027 (1.010-1.035) 10/05/18 17:20 Urine Protein Negative (NEGATIVE) 10/05/18 17:20 Urine Glucose (UA) Negative (NEGATIVE) 10/05/18 17:20 Urine Ketones Trace (NEGATIVE) H 10/05/18 17:20 Urine Blood Negative (NEGATIVE) 10/05/18 17:20 Urine Nitrite Positive (NEGATIVE) H 10/05/18 17:20 Urine Bilirubin Small (NEGATIVE) 10/05/18 17:20 Ur Leukocyte Esterase 3+ (NEGATIVE) H 10/05/18 17:20 WBC 10 Bacteria 4000+ Pt has UTI Medications ordered: ceftriaxone Pt to be admitted for AMS, UTI. Ammonia 91.5 *DC/Admit/Observation/Transfer Diagnosis at time of Disposition: Urinary tract infection, Failure to thrive, Altered mental state - Discharge Dispostion Condition at time of disposition: Stable Decision to Admit order: Yes - Referrals - Patient Instructions - Post Discharge Activity
[2018-10-05 16:28] LABS: BASO % 0.7 % (0-2.0); EOS % 5.5 % (0-4.5); HEMATOCRIT 39.2 % (32.4-45.2); HEMOGLOBIN 12.8 GM/dL (10.7-15.3); LYMPH % 37.3 % (8-40); MCH 34.2 pg (25.7-33.7); MCHC 32.6 g/dl (32.0-36.0); MEAN CELL VOLUME 104.7 fl (80-96); MEAN PLT VOLUME 9.9 fl (7.5-11.1); MONO % 8.2 % (3.8-10.2); NEUT % 48.3 % (42.8-82.8); PLATELET COUNT 169 K/MM3 (134-434); RBC 3.75 M/mm3 (3.60-5.2); RDW 14.4 % (11.6-15.6); WHITE BLOOD COUNT 4.4 K/mm3 (4.0-10.0)
[2018-10-05] MEDS ORDERED: DEXTROSE 5%-0.45% SALINE 1,000 ML IV SCH (16:30)
[2018-10-05 16:55] LABS: ALBUMIN 2.6 g/dl (3.4-5.0); ALK PHOS 92 U/L (45-117); ANION GAP 5 MMOL/L (8-16); BILIRUBIN,TOTAL 1.8 mg/dL (0.2-1); BLOOD UREA NITROGEN 20 mg/dL (7-18); CALCIUM 8.6 mg/dL (8.5-10.1); CHLORIDE 110 mmol/L (98-107); CO2 29 mmol/L (21-32); CREATININE 0.8 mg/dL (0.55-1.3); GLUCOSE,RANDOM 87 mg/dL (74-106); MAGNESIUM 1.9 mg/dL (1.8-2.4); POTASSIUM 3.9 mmol/L (3.5-5.1); SGOT/AST 29 U/L (15-37); SGPT/ALT 18 U/L (13-61); SODIUM 144 mmol/L (136-145); TOT PROT 6.8 g/dl (6.4-8.2)
[2018-10-05 17:09] LABS: INR 1.26 (0.83-1.09); PROTHROMBIN TIME (PATIENT) 14.9 SEC (9.7-13.0)
[2018-10-05 17:12] LABS: ACTIVATED PTT 35.7 SECONDS (25.2-36.5)
[2018-10-05 19:46] LABS: URINE APPEARANCE CLOUDY; URINE BILIRUBIN SMALL (NEGATIVE); URINE COLOR YELLOW; URINE GLUCOSE (UA) NEGATIVE (NEGATIVE)
[2018-10-05 19:47] LABS: EPI CELLS 22.2 /HPF (0-5/HPF); PH,URINE 5.5 (5.0-8.0); URINE KETONE TRACE (NEGATIVE); URINE LEUK ESTERASE 3+ (NEGATIVE); URINE NITRITE POSITIVE (NEGATIVE); URINE PROTEIN NEGATIVE (NEGATIVE); URINE RBC 1.6 /hpf (0-4); URINE WBC 10.2 /hpf (0-5)
[2018-10-05 19:48] LABS: URINE BACTERIA 4567.1 /hpf (NEGATIVE)
[2018-10-05] MEDS ORDERED: CEFTRIAXONE 1 GM in DEXTROSE 5%-WATER - 100 ML IVPB ONE (20:28)
[2018-10-05] MEDS ORDERED: CEFTRIAXONE 1 GM/50 ML BAG ONE (20:47)
[2018-10-05] MEDS ORDERED: LACTULOSE 20 GM/30 ML UDC (FOR ORAL USE ONLY) PO ONE (21:03)
--- NOTE | 2018-10-05 21:14 | PDOC ---
Documentation entered by Magali Kendall SCRIBE, acting as scribe for Martin Schulz MD. Martin Schulz MD: This documentation has been prepared by the scribe, Magali Kendall SCRIBE, under my direction and personally reviewed by me in its entirety. I confirm that the documentation accurately reflects all work, treatment, procedures, and medical decision making performed by me. 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 Patients daughter is at bedside and reports that she has become nonverbal, has been eating less, and has stopped ambulating. Family also reports that the patient has been experiencing intermittent headaches for the past 2 weeks. - Physicial Exam PE: 10/05/18 21:12 Patient is awake and alert, nonverbal, does not follow commands, gets agitated when evaluated by M.D. Normocephalic and atraumatic EOMI, no nystagmus No JVD CTA RRR No asterixis Moving all extremities symmetrically - Medical Decision Making 10/05/18 21:12 Patient is a 77-year-old female with multiple comorbidities who presents with failure to thrive, decreased by mouth intake of solids and liquids selective mutism for the past several days. In the ER, patient's afebrile and hemodynamically stable. No focal neurological deficits are identified. Differential diagnoses includes metabolic encephalopathy versus infectious. CT of head shows no evidence of acute intracranial pathology. Ammonia is pending. Urinalysis reveals nitrite positive pyuria. Will cover with ceftriaxone. Will admit.
[2018-10-05] MEDS ORDERED: LACTATED RINGERS SOLUTION 1,000 ML IV SCH (21:15)
[2018-10-05] MEDS ORDERED: LACTULOSE 20 GM/30 ML UDC (FOR ORAL USE ONLY) ONE (21:28)
[2018-10-05] MEDS: LACTULOSE 20 GM/30 ML UDC (FOR ORAL USE ONLY) PO SCH (21:45)
--- NOTE | 2018-10-05 22:29 | PN ---
Teaching Attending Note Name of Resident: Hong Barraza ATTENDING PHYSICIAN STATEMENT I saw and evaluated the patient. I reviewed the resident's note and discussed the case with the resident. I agree with the resident's findings and plan as documented. SUBJECTIVE: Seen and examined; please refer to resident note for further historical information. Briefly, this is a 77 y/o female presenting with failure to thrive brought in by daughter. Wednesday had less activity, stopped taking lactulose, last BM2 days ago last meal wednesday night. Has been increasingly weak and fatigued, speaking less and confused. Last time she has taken any of her cirrhosis meds appears to be wednesday. Elevated ammonia level, +UA, head CT unchanged since 11/2017 making input from the chronic small SDH less likely. 10 sys ROS done and negative aside from HPI PMH (HTN, CVA, CAD, Cirrhosis 2/2 shistosomiasis, SDH, Dementia), PSH, FH, SH reviewed Home Medications Medication Instructions Recorded Escitalopram Oxalate [Lexapro -] 10 mg PO DAILY 06/11/14 Lactulose (Oral Use) [Cephulac -] 30 gm PO TID udc 05/06/16 Rifaximin [Xifaxan -] 550 mg PO BID tablet 06/09/17 Nadolol [Corgard -] 40 mg PO DAILY 08/06/17 Spironolactone [Aldactone -] 25 mg PO DAILY 08/06/17 OBJECTIVE: VS, labs, imaging reviewed NAD, demented but interactive, somewhat confused, no asterixis NC AT EOMI PERRLA RRR s1/2 no mgr Lungs CTAB, w/ sym exp Mildly diffusely tender, ND, +BS CN2-12 wnl, no fnd Somewhat agitated but redirectable, likely lacks capacity at this juncture EKG reviewed CT head reviewed ASSESSMENT AND PLAN: Patient presents with increased weakness, fatigue, and confusion; she is found to have a positive UA and elevated NH4 level and has been noncompliant with her home liver meds. 1) AMS -Likely multifactoral toxic metabolic encephalopathy due to UTI and hepatic encephalopathy; will treat underlying causes. Complicated by her underlying dementia. Had similar presentation last year and was due to HE and was seen by neuro at that time. -PT eval, fall precautions, monitor neuro checks qshift -Bedside swallow eval; if tolerating will encourage PO intake. Can consider neuro referral if no improvement. Would be helpful to check when her last OP MRI was as she was supposed to have these done as OP with Dr. Terrazas in the past but per old notes has missed appointments. If she is due for one anyways can consider doing inpt. 2) Acute Cystitis -On ceftriaxone; follow up cultures. No cx data for years so should be sufficient empiric coverage. 3) Hepatic encephalopathy -Hasn't been taking home meds; restart home dose lactulose and rifaxamin. No aylin asterixis on exam making #2 likely chief contributor 4) Cirrhosis -Continue home meds; elevated bili noted. Will fractionate and if it trends up can consider RUQ u/s -Followup OP with GI for scope, etc. 5) Hx Chronic SDH -Dr. Jerome drained L-acute on chronic L-sided and did not recommend R-sided drainage. No change on today's CT. Avoid AC. Continue to followup with neurology and neurosurgery as an outpatient. 6) Hx CVA -Noted in chart; verify and continue appropriate home medicaitons. No focal deficits today giving rise to concern for acute CVA. -ASA allergy noted 7) Dementia -Verifying code status with family; can consider placement DVT px: SCDs for now
--- NOTE | 2018-10-05 22:53 | HP ---
CHIEF COMPLAINT: Failure to Thrive PCP: HISTORY OF PRESENT ILLNESS: 87 year old female with past medical history of HTN, CVA, CAD, cirrhosis secondary to schistosomiasis, hepatic encephalopathy, dementia, subdural hematoma (06-10-17 s/p nii hole) brought in by her daughter for failure to thrive and concern for increased ammonia levels. Daughter states the patient woke up early wednesday with fatigue, weakness, decreased appetite, unable to ambulate and worsening headaches. Daughter states the patient's last meal was wednesday night, her last lactulose and rifaximin doses were wednesday night. Her last BM was 2 days ago. The patient is currently feeling better, more alert and stating she is hungry. ER course was notable for: (1) UTI (ceftriaxone given) (2) ammonia 91 (given lactulose) (3) ekg neg Recent Travel: PAST MEDICAL HISTORY: PAST SURGICAL HISTORY: nii hole, c-sections, breast abscess Social History: Smoking:no Alcohol:no Drugs: no Family History: Allergies aspirin Allergy- gets rash (Unknown, Verified 10/05/18 15:17) HOME MEDICATIONS: Home Medications Medication Instructions Recorded Escitalopram Oxalate [Lexapro -] 10 mg PO DAILY 06/11/14 Lactulose (Oral Use) [Cephulac -] 30 gm PO TID udc 05/06/16 Rifaximin [Xifaxan -] 550 mg PO BID tablet 06/09/17 Nadolol [Corgard -] 40 mg PO DAILY 08/06/17 Spironolactone [Aldactone -] 25 mg PO DAILY 08/06/17 REVIEW OF SYSTEMS CONSTITUTIONAL: Absent: fever, chills, diaphoresis, generalized weakness, malaise, loss of appetite, weight change HEENT: Absent: rhinorrhea, nasal congestion, throat pain, throat swelling, difficulty swallowing, mouth swelling, ear pain, eye pain, visual changes CARDIOVASCULAR: Absent: chest pain, syncope, palpitations, irregular heart rate, lightheadedness , peripheral edema RESPIRATORY: Absent: cough, shortness of breath, dyspnea with exertion, orthopnea, wheezing, stridor, hemoptysis GASTROINTESTINAL: Absent: abdominal pain, abdominal distension, nausea, vomiting, diarrhea, constipation, melena, hematochezia GENITOURINARY: Absent: dysuria, frequency, urgency, hesitancy, hematuria, flank pain, genital pain MUSCULOSKELETAL: Absent: myalgia, arthralgia, joint swelling, back pain, neck pain SKIN: Absent: rash, itching, pallor HEMATOLOGIC/IMMUNOLOGIC: Absent: easy bleeding, easy bruising, lymphadenopathy, frequent infections ENDOCRINE: Absent: unexplained weight gain, unexplained weight loss, heat intolerance, cold intolerance NEUROLOGIC: Absent: headache, focal weakness or paresthesias, dizziness, unsteady gait, seizure, mental status changes, bladder or bowel incontinence PSYCHIATRIC: Absent: anxiety, depression, suicidal or homicidal ideation, hallucinations. PHYSICAL EXAMINATION Vital Signs - 24 hr 10/05/18 15:00 Temperature 97.4 F L Pulse Rate 74 Respiratory 16 Rate Blood Pressure 142/51 L O2 Sat by Pulse 99 Oximetry (%) GENERAL: Alert but not oriented, no acute distress EYES: PERRLA, EOMI, no icterus ENT: Dry mucus membranes NECK: No JVD LUNGS: CTA, no wheezes HEART: RRR, no murmurs ABDOMEN: Soft, nontender, BS present MUSCULOSKELETAL: No CVA Tenderness EXTREMITIES: 2+ pulses, no edema. NEUROLOGICAL: CUnable to assess), no asterixis Laboratory Results - last 24 hr 10/05/18 10/05/18 10/05/18 15:49 15:49 15:49 WBC 4.4 RBC 3.75 Hgb 12.8 Hct 39.2 MCV 104.7 H MCH 34.2 H MCHC 32.6 RDW 14.4 Plt Count 169 D MPV 9.9 Absolute Neuts (auto) 2.1 Neutrophils % 48.3 Lymphocytes % 37.3 Monocytes % 8.2 Eosinophils % 5.5 H Basophils % 0.7 Nucleated RBC % 0 PT with INR 14.90 H INR 1.26 H PTT (Actin FS) 35.7 Sodium 144 Potassium 3.9 Chloride 110 H Carbon Dioxide 29 Anion Gap 5 L BUN 20 H Creatinine 0.8 Est GFR (CKD-EPI)AfAm 83.00 Est GFR (CKD-EPI)NonAf 71.61 Random Glucose 87 Calcium 8.6 Phosphorus 3.0 Magnesium 1.9 Total Bilirubin 1.8 H AST 29 ALT 18 Alkaline Phosphatase 92 Ammonia Troponin I < 0.02 Total Protein 6.8 Albumin 2.6 L Urine Color Urine Appearance Urine pH Ur Specific [place] Urine Protein Urine Glucose (UA) Urine Ketones Urine Blood Urine Nitrite Urine Bilirubin Urine Urobilinogen Ur Leukocyte Esterase Urine WBC (Auto) Urine RBC (Auto) U Epithel Cells (Auto) Urine Bacteria (Auto) 10/05/18 10/05/18 15:49 17:20 WBC RBC Hgb Hct MCV MCH MCHC RDW Plt Count MPV Absolute Neuts (auto) Neutrophils % Lymphocytes % Monocytes % Eosinophils % Basophils % Nucleated RBC % PT with INR INR PTT (Actin FS) Sodium Potassium Chloride Carbon Dioxide Anion Gap BUN Creatinine Est GFR (CKD-EPI)AfAm Est GFR (CKD-EPI)NonAf Random Glucose Calcium Phosphorus Magnesium Total Bilirubin AST ALT Alkaline Phosphatase Ammonia 91.50 H Troponin I Total Protein Albumin Urine Color Yellow Urine Appearance Cloudy Urine pH 5.5 D Ur Specific [place] 1.027 Urine Protein Negative Urine Glucose (UA) Negative Urine Ketones Trace H Urine Blood Negative Urine Nitrite Positive H Urine Bilirubin Small Urine Urobilinogen 1.0 Ur Leukocyte Esterase 3+ H Urine WBC (Auto) 10.2 Urine RBC (Auto) 1.6 U Epithel Cells (Auto) 22.2 Urine Bacteria (Auto) 4567.1 ASSESSMENT/PLAN: 87 year old female with past medical history of HTN, CVA, CAD, cirrhosis secondary to schistosomiasis, hepatic encephalopathy, dementia, subdural hematoma (1818 s/p nii hole) brought in by her daughter for failure to thrive and concern for increased ammonia levels. #Altered Mental Status/Weakness: likely 2/2 UTI vs hepatic encephalopathy ( patient has not taken her doses of lactulose and rifaximin), however she has mildly improved without bowel movements and only with fluids -cont ceftriaxone 1g daily -urine cultures pending -ammonia level elevated -continue home doses -gentle hydration #Elevated Ammonia: has not been taking her home dose of medications -cont home lactulose does of TID -cont rifaximin #Macrocytosis: unclear etiology -B12/ folate levels -SPEP/UPEP #Elevated Bilirubin: likely 2/2 cirrhosis -get fractionated bili -RUQ u/s -trend #Cirrhosis -continue diuretics, lactulose and rifaximin #HTN -cont spirinolactone and carvediol, nadolol #GERD -cont nexium #Dementia -cont escitalopram #Prophylaxis -Lovenox #FEN -fluids -LR @ 83cc/hr -regular diet #Disposition -admit med surg Visit type - Emergency Visit Emergency Visit: Yes ED Registration Date: 10/05/18 Care time: The patient presented to the Emergency Department on the above date and was hospitalized for further evaluation of their emergent condition. - New Patient This patient is new to me today: Yes Date on this admission: 10/06/18 - Critical Care Critical Care patient: No
[2018-10-06 00:44] VITALS: BMI 26.6
[2018-10-06] MEDS: RIFAXIMIN 550 MG TABLET (UD) PO SCH ×3 (00:44→22:31)
[2018-10-06] MEDS: LACTULOSE 20 GM/30 ML UDC (FOR ORAL USE ONLY) PO SCH ×2 (05:25→16:56)
[2018-10-06 07:16] LABS: HEMATOCRIT 34.9 % (32.4-45.2); HEMOGLOBIN 11.8 GM/dL (10.7-15.3); MCH 34.7 pg (25.7-33.7); MCHC 33.7 g/dl (32.0-36.0); MEAN CELL VOLUME 103.1 fl (80-96); MEAN PLT VOLUME 9.6 fl (7.5-11.1); PLATELET COUNT 173 K/MM3 (134-434); RBC 3.38 M/mm3 (3.60-5.2); RDW 14.6 % (11.6-15.6); WHITE BLOOD COUNT 4.7 K/mm3 (4.0-10.0)
[2018-10-06 07:55] LABS: ALBUMIN 2.3 g/dl (3.4-5.0); BILIRUBIN,TOTAL 1.5 mg/dL (0.2-1); CALCIUM 8.3 mg/dL (8.5-10.1); CREATININE 0.8 mg/dL (0.55-1.3); PHOSPHOROUS 3.2 mg/dL (2.5-4.9); POTASSIUM 4.1 mmol/L (3.5-5.1)
--- NOTE | 2018-10-06 08:28 | PN ---
Physical Exam: SUBJECTIVE: Patient seen and examined at bedside- patient was very agitated and combative overnight; she is nonverbal and would not take PO meds without her daughter being present; ROS unobtainable at patient is nonverbal OBJECTIVE: Vital Signs Period Temp Pulse Resp BP Sys/Macias Pulse Ox Last 24 Hr 97.4 F-97.9 F 66-74 16-18 117-149/51-87 99-99 GENERAL: The patient is awake, nonbverbal and combative EYES: PEERLA: no signs of jaundice NECK:no JVD; no lymphadenopathy LUNGS: lungs CTA HEART: Regular rate and rhythm, S1, S2 without murmur, rub or gallop. ABDOMEN: Soft, nontender, nondistended, normoactive bowel sounds, no guarding, no rebound, no hepatosplenomegaly, no masses. EXTREMITIES: 2+ pulses, warm, well-perfused, no edema; no signs of asterixis . NEUROLOGICAL: unable to obtain SKIN: Warm, dry, normal turgor, no rashes or lesions noted Laboratory Results - last 24 hr 10/05/18 10/05/18 10/05/18 15:49 15:49 15:49 WBC 4.4 RBC 3.75 Hgb 12.8 Hct 39.2 MCV 104.7 H MCH 34.2 H MCHC 32.6 RDW 14.4 Plt Count 169 D MPV 9.9 Absolute Neuts (auto) 2.1 Neutrophils % 48.3 Lymphocytes % 37.3 Monocytes % 8.2 Eosinophils % 5.5 H Basophils % 0.7 Nucleated RBC % 0 PT with INR 14.90 H INR 1.26 H PTT (Actin FS) 35.7 Sodium 144 Potassium 3.9 Chloride 110 H Carbon Dioxide 29 Anion Gap 5 L BUN 20 H Creatinine 0.8 Est GFR (CKD-EPI)AfAm 83.00 Est GFR (CKD-EPI)NonAf 71.61 Random Glucose 87 Calcium 8.6 Phosphorus 3.0 Magnesium 1.9 Total Bilirubin 1.8 H AST 29 ALT 18 Alkaline Phosphatase 92 Ammonia Troponin I < 0.02 Total Protein 6.8 Albumin 2.6 L Vitamin B12 TSH Urine Color Urine Appearance Urine pH Ur Specific [place] Urine Protein Urine Glucose (UA) Urine Ketones Urine Blood Urine Nitrite Urine Bilirubin Urine Urobilinogen Ur Leukocyte Esterase Urine WBC (Auto) Urine RBC (Auto) U Epithel Cells (Auto) Urine Bacteria (Auto) 10/05/18 10/05/18 10/06/18 15:49 17:20 06:30 WBC RBC Hgb Hct MCV MCH MCHC RDW Plt Count MPV Absolute Neuts (auto) Neutrophils % Lymphocytes % Monocytes % Eosinophils % Basophils % Nucleated RBC % PT with INR INR PTT (Actin FS) Sodium 143 Potassium 4.1 Chloride 112 H Carbon Dioxide 26 Anion Gap 6 L BUN 17 Creatinine 0.8 Est GFR (CKD-EPI)AfAm 83.00 Est GFR (CKD-EPI)NonAf 71.61 Random Glucose 93 Calcium 8.3 L Phosphorus 3.2 Magnesium 2.0 Total Bilirubin 1.5 H AST 27 ALT 17 Alkaline Phosphatase 81 Ammonia 91.50 H Troponin I Total Protein 6.0 L Albumin 2.3 L Vitamin B12 373 TSH 1.13 Urine Color Yellow Urine Appearance Cloudy Urine pH 5.5 D Ur Specific [place] 1.027 Urine Protein Negative Urine Glucose (UA) Negative Urine Ketones Trace H Urine Blood Negative Urine Nitrite Positive H Urine Bilirubin Small Urine Urobilinogen 1.0 Ur Leukocyte Esterase 3+ H Urine WBC (Auto) 10.2 Urine RBC (Auto) 1.6 U Epithel Cells (Auto) 22.2 Urine Bacteria (Auto) 4567.1 Active Medications Generic Name Dose Route Start Last Admin Trade Name Freq PRN Reason Stop Dose Admin Escitalopram Oxalate 10 mg 10/06/18 10:00 Lexapro - PO DAILY [facility] Ceftriaxone Sodium 1 gm/ 50 mls @ 200 mls/hr 10/06/18 10:00 Dextrose IVPB DAILY [facility] Protocol Lactulose 30 gm 10/05/18 22:00 10/06/18 05:25 Cephulac (Oral Use) PO 30 gm TID [facility] Administration Nadolol 40 mg 10/06/18 10:00 Corgard - PO DAILY NAA Rifaximin 550 mg 10/05/18 22:00 10/06/18 00:44 Xifaxan - PO Not Given BID [facility] Spironolactone 25 mg 10/06/18 10:00 Aldactone - PO DAILY [facility] ASSESSMENT/PLAN: 87 year old female with past medical history of HTN, CVA, CAD, 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 #Altered Mental Status/Weakness: likely 2/2 UTI vs hepatic encephalopathy ( patient has not taken her doses of lactulose and rifaximin since Wednesday), -cont ceftriaxone 1g daily -urine cultures pending -ammonia level elevated -continue home doses -will speak to daughter to get further collateral information as patient is nonverbal at the moment #Elevated Ammonia: -cont home lactulose does of 30TID -cont rifaximin 550 BID -if patient does not take PO- will try lactulose suppositories -monitor number of bowel movements #Macrocytosis: unclear etiology -B12/ folate levels ; wnl -SPEP/UPEP still pending #Elevated Bilirubin: likely 2/2 cirrhosis -get fractionated bili -RUQ u/s -trend #Cirrhosis -continue diuretics, lactulose and rifaximin #HTN -cont spirinolactone and carvediol, nadolol #GERD -cont nexium #Dementia -cont escitalopram #Prophylaxis -Lovenox Problem List - Problems (1) Hepatic encephalopathy Code(s): K72.90 - HEPATIC FAILURE, UNSPECIFIED WITHOUT COMA (2) Altered mental state Code(s): R41.82 - ALTERED MENTAL STATUS, UNSPECIFIED Qualifiers: (3) Failure to thrive Code(s): GMF2071 - (4) Urinary tract infection Code(s): N39.0 - URINARY TRACT INFECTION, SITE NOT SPECIFIED Visit type - Emergency Visit Emergency Visit: Yes ED Registration Date: 10/05/18 Care time: The patient presented to the Emergency Department on the above date and was hospitalized for further evaluation of their emergent condition. - New Patient This patient is new to me today: Yes Date on this admission: 10/06/18 - Critical Care Critical Care patient: No
[2018-10-06] MEDS ORDERED: NADOLOL 20 MG TABLET (FP) ONE (09:45)
[2018-10-06] MEDS ORDERED: DEXTROSE 5%-WATER - 50 ML IVPB ONE (09:46)
[2018-10-06] MEDS ORDERED: cefTRIAXone SODIUM 1 GM VIAL ONE ×2 (09:46→16:38)
[2018-10-06] MEDS ORDERED: ENOXAPARIN NA (PORCINE) 40 MG/0.4 ML DISP.SYRIN SQ SCH (10:00)
[2018-10-06] MEDS: CEFTRIAXONE 1 GM in DEXTROSE 5%-WATER - 50 ML IVPB SCH (11:58)
--- NOTE | 2018-10-06 14:27 | EKG ---
Test Reason : Blood Pressure : / mmHG Vent. Rate : 062 BPM Atrial Rate : 062 BPM P-R Int : 144 ms QRS Dur : 102 ms QT Int : 478 ms P-R-T Axes : 018 -21 075 degrees QTc Int : 485 ms NORMAL SINUS RHYTHM MINIMAL VOLTAGE CRITERIA FOR LVH, MAY BE NORMAL VARIANT BORDERLINE ECG WHEN COMPARED WITH ECG OF 06-AUG-2017 00:15, NO SIGNIFICANT CHANGE WAS FOUND Confirmed by DAYSI HENRY, EVELYN ([id number]) on 10/06/2018 2:26:36 PM Referred By: Confirmed By:EVELYN TAVAREZ MD
[2018-10-06] MEDS ORDERED: DEXTROSE 5%-NORMAL SALINE 1,000 ML IV SCH (14:30)
--- NOTE | 2018-10-06 16:20 | PN ---
Teaching Attending Note Name of Resident: Brandie Nixon ATTENDING PHYSICIAN STATEMENT I saw and evaluated the patient. I reviewed the resident's note and discussed the case with the resident. I agree with the resident's findings and plan as documented. SUBJECTIVE:resting comfortable.does not answer questions OBJECTIVE: Last Vital Signs Temp Pulse Resp BP Pulse Ox 97.5 F L 77 18 107/67 99 10/06/18 14:48 10/06/18 14:48 10/06/18 14:48 10/06/18 14:48 10/06/18 00:43 General NAD CV S1 S2 RRR no murmur/rub/gallop Lungs CTA B/L anteriorly no wheezing/rales/rhonchi abdomen refuses exam of abdomen Extremities refused exam ASSESSMENT AND PLAN: 77yo F with PMH Cirrhosis2/2 schistosomiasis, dementia, HTN, CVA, CAD, SDH presented to the ER for altered mental status and found to have UTI and hepatic encephalopathy 1. Acute toxic metabolic encephalopathy- due to UTI and hepatic encephalopathy. has not had BM for >3 days and has not been taking medications. started on ceftriaxone and her home medications. unsure if able to tolerate po at this time. will give lactulose per rectum. low dose IVF if remains NPO. will reach out to family to confirm baseline as was saying she is verbal at baseline however pt is grunting and pushing away during physical exam. head CT on admission does not show any acute pathology 2. UTI- on ceftriaxone day 2. f/u Cx 3. Decompensated cirrhosis- elevated ammonia level. re-started home medications.titrate lactulose to >3BM/Day. bilirubin trending down. jose monitor for clinical response. low suspicion for SBP. 4. dementia- will need to confirm baseline 5. CVA- not on asa due to allergy and hx of SDH 6. SDH- s/p nii hole. stable in size 7. DVT ppx-SCD
[2018-10-06] MEDS: SPIRONOLACTONE 25 MG TABLET (FP) PO SCH (16:54)
[2018-10-06] MEDS: ESCITALOPRAM OXALATE 10 MG TABLET (FP) PO SCH (16:55)
[2018-10-06] MEDS: NADOLOL 40 MG TABLET (FP) PO SCH (16:56)
[2018-10-06] MEDS: LACTULOSE 20 GM/30 ML UDC (FOR RECTAL USE ONLY) PR SCH ×2 (16:56→22:31)
[2018-10-06] MEDS ORDERED: PT OWN MED DRAWER 7, Y5N ONE (21:22)
[2018-10-07] MEDS ORDERED: LACTULOSE 20 GM/30 ML UDC (FOR ORAL USE ONLY) PO ONE ×2 (03:11→05:15)
[2018-10-07] MEDS: LACTULOSE 20 GM/30 ML UDC (FOR RECTAL USE ONLY) PR SCH (05:25)
[2018-10-07 07:56] LABS: HEMATOCRIT 33.8 % (32.4-45.2); HEMOGLOBIN 11.3 GM/dL (10.7-15.3); MCH 34.5 pg (25.7-33.7); MCHC 33.4 g/dl (32.0-36.0); MEAN CELL VOLUME 103.5 fl (80-96); MEAN PLT VOLUME 10.1 fl (7.5-11.1); PLATELET COUNT 172 K/MM3 (134-434); RBC 3.26 M/mm3 (3.60-5.2); RDW 14.4 % (11.6-15.6); WHITE BLOOD COUNT 4.5 K/mm3 (4.0-10.0)
--- NOTE | 2018-10-07 07:59 | PN ---
Physical Exam: SUBJECTIVE: Patient seen and examined at bedside- no acute events overnight; patients daughter was here yesterday she took her PO lactulose and had around 6 bowel movements; she is more alert and less combative this AM- ROS unobtainable OBJECTIVE: Vital Signs Period Temp Pulse Resp BP Sys/Macias Pulse Ox Last 24 Hr 97 F-98.8 F 74-83 18-20 99-116/57-72 99-100 GENERAL: The patient is awake, alert, less combative ; grunting with minimal speech EYES: PEERLA; EOMI; no scleral icterus . NECK: Trachea midline, full range of motion, supple. LUNGS:CTA B/L; no rales, rhonchi or wheezing . HEART: Regular rate and rhythm, S1, S2 without murmur, rub or gallop. ABDOMEN: soft; NT ND +BS in. EXTREMITIES: 2+ pulses, warm, well-perfused, no edema. NEUROLOGICAL: Cranial nerves II through XII grossly intact. Normal speech, gait not observed. PSYCH: Normal mood, normal affect. SKIN: Warm, dry, normal turgor, no rashes or lesions noted Laboratory Results - last 24 hr 10/06/18 06:30 WBC 4.7 RBC 3.38 L Hgb 11.8 Hct 34.9 MCV 103.1 H MCH 34.7 H MCHC 33.7 RDW 14.6 Plt Count 173 MPV 9.6 Active Medications Generic Name Dose Route Start Last Admin Trade Name Freq PRN Reason Stop Dose Admin Escitalopram Oxalate 10 mg 10/06/18 10:00 10/06/18 16:55 Lexapro - PO 10 mg DAILY NAA Administration Ceftriaxone Sodium 1 gm/ 50 mls @ 200 mls/hr 10/06/18 10:00 10/06/18 11:58 Dextrose IVPB 200 mls/hr DAILY NAA Administration Protocol Dextrose/Sodium Chloride 1,000 mls @ 75 mls/hr 10/06/18 14:30 10/06/18 16:58 D5-Ns - IV 75 mls/hr ASDIR NAA Administration Lactulose 200 gm 10/06/18 14:45 10/07/18 05:25 Cephulac (Rectal Use) TX Not Given TID NAA Nadolol 40 mg 10/06/18 10:00 10/06/18 16:56 Corgard - PO 40 mg DAILY NAA Administration Rifaximin 550 mg 10/05/18 22:00 10/06/18 22:31 Xifaxan - PO 550 mg BID NAA Administration Spironolactone 25 mg 10/06/18 10:00 10/06/18 16:54 Aldactone - PO 25 mg DAILY NAA Administration ASSESSMENT/PLAN: 87 year old female with past medical history of HTN, CVA, CAD, 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 #Altered Mental Status/Weakness: likely 2/2 UTI vs hepatic encephalopathy ( patient has not taken her doses of lactulose and rifaximin since Wednesday), -cont ceftriaxone 1g daily (day 3) -urine cultures growing gram negative bacilli -ammonia level elevated -since patient had 6 bowel movements overnight; will give lactulose PRN -will speak to daughter to get further collateral information as patient is nonverbal at the moment #Elevated Ammonia: -cont home lactulose does of 30TID (PRN) -cont rifaximin 550 BID -if patient does not take PO- will try lactulose suppositories -monitor number of bowel movements #Macrocytosis: unclear etiology -B12/ folate levels ; wnl -SPEP/UPEP still pending #Elevated Bilirubin: likely 2/2 cirrhosis -T shane downtrending -RUQ u/s -trend #Cirrhosis -continue diuretics, lactulose and rifaximin #HTN -cont spirinolactone and carvediol, nadolol #GERD -cont nexium #Dementia -cont escitalopram #Prophylaxis -Lovenox Problem List - Problems (1) Hepatic encephalopathy Code(s): K72.90 - HEPATIC FAILURE, UNSPECIFIED WITHOUT COMA (2) Altered mental state Code(s): R41.82 - ALTERED MENTAL STATUS, UNSPECIFIED Qualifiers: (3) Failure to thrive Code(s): [id number] - (4) Urinary tract infection Code(s): N39.0 - URINARY TRACT INFECTION, SITE NOT SPECIFIED Visit type - Emergency Visit Emergency Visit: Yes ED Registration Date: 10/05/18 Care time: The patient presented to the Emergency Department on the above date and was hospitalized for further evaluation of their emergent condition. - New Patient This patient is new to me today: No - Critical Care Critical Care patient: No
[2018-10-07 08:09] LABS: ALBUMIN 2.3 g/dl (3.4-5.0); BILIRUBIN,DIRECT 0.5 mg/dL (0.0-0.2); BILIRUBIN,TOTAL 1.1 mg/dL (0.2-1); CALCIUM 7.9 mg/dL (8.5-10.1); CREATININE 0.7 mg/dL (0.55-1.3); MAGNESIUM 1.9 mg/dL (1.8-2.4); PHOSPHOROUS 2.2 mg/dL (2.5-4.9); POTASSIUM 3.5 mmol/L (3.5-5.1); TOT PROT 5.9 g/dl (6.4-8.2)
[2018-10-07] MEDS ORDERED: NAPH,MB-DB/K PH,MBDB POWDER PACKET PO ONE (08:30)
[2018-10-07] MEDS ORDERED: NADOLOL 20 MG TABLET (FP) ONE (09:01)
[2018-10-07] MEDS ORDERED: DEXTROSE 5%-WATER - 50 ML IVPB ONE (09:02)
[2018-10-07] MEDS ORDERED: cefTRIAXone SODIUM 1 GM VIAL ONE (09:02)
[2018-10-07] MEDS ORDERED: LACTULOSE 20 GM/30 ML UDC (FOR RECTAL USE ONLY) PR PRN (10:03)
--- NOTE | 2018-10-07 10:25 | PN ---
Teaching Attending Note Name of Resident: Brandie Nixon ATTENDING PHYSICIAN STATEMENT I saw and evaluated the patient. I reviewed the resident's note and discussed the case with the resident. I agree with the resident's findings and plan as documented. SUBJECTIVE:resting comfortable. said "ok" to questions regarding if she was having any symptoms OBJECTIVE: Last Vital Signs Temp Pulse Resp BP Pulse Ox 97.7 F 66 20 138/73 100 10/07/18 10:00 10/07/18 10:00 10/07/18 10:00 10/07/18 10:00 10/06/18 21:00 General NAD CV S1 S2 RRR no murmur/rub/gallop Lungs CTA B/L anteriorly no wheezing/rales/rhonchi abdomen soft NT/ND no rebound or guarding. no suprapubic tenderness Extremities non pitting edema ASSESSMENT AND PLAN: 77yo F with PMH Cirrhosis2/2 schistosomiasis, dementia, HTN, CVA, CAD, SDH presented to the ER for altered mental status and found to have UTI and hepatic encephalopathy 1. Acute toxic metabolic encephalopathy- due to UTI and hepatic encephalopathy. appears to be more cooperative today. had 6 BM yesterday. as per family who was present yesterday was closer to baseline (intermittently verbal, needs assistance iwth ADL's). can titrate down lactulose to 2-3BM/day. treat UTI. monitor mental status for return to baseline. will advance diet and d/c IVF 2. UTI- on ceftriaxone day 3. f/u Cx 3. Decompensated cirrhosis-reported to be near baseline. titrate down lactulose. cont other medications. \\ 4. dementia-baseline is intermittently verbal, assistance iwth ADL. can have simple conversations 5. CVA- not on asa due to allergy and hx of SDH 6. SDH- s/p nii hole. stable in size 7. DVT ppx-SCD 8. will have PT assessment. anticipate discharge in next 24-48H
[2018-10-07] MEDS: CEFTRIAXONE 1 GM in DEXTROSE 5%-WATER - 50 ML IVPB SCH (10:59)
[2018-10-07] MEDS: NADOLOL 40 MG TABLET (FP) PO SCH (10:59)
[2018-10-07] MEDS: ESCITALOPRAM OXALATE 10 MG TABLET (FP) PO SCH (10:59)
[2018-10-07] MEDS: SPIRONOLACTONE 25 MG TABLET (FP) PO SCH (10:59)
[2018-10-07] MEDS: RIFAXIMIN 550 MG TABLET (UD) PO SCH ×2 (11:00→22:42)
[2018-10-07] MEDS ORDERED: LACTULOSE 20 GM/30 ML UDC (FOR ORAL USE ONLY) PO PRN (14:09)
[2018-10-08 08:28] LABS: ALBUMIN 2.2 g/dl (3.4-5.0); BILIRUBIN,TOTAL 1.6 mg/dL (0.2-1); CALCIUM 8.1 mg/dL (8.5-10.1); CREATININE 0.6 mg/dL (0.55-1.3); POTASSIUM 3.5 mmol/L (3.5-5.1); TOT PROT 5.5 g/dl (6.4-8.2)
[2018-10-08] MEDS ORDERED: NADOLOL 20 MG TABLET (FP) ONE (08:45)
[2018-10-08] MEDS ORDERED: cefTRIAXone SODIUM 1 GM VIAL ONE (08:45)
[2018-10-08] MEDS ORDERED: DEXTROSE 5%-WATER - 50 ML IVPB ONE (08:46)
--- NOTE | 2018-10-08 09:30 | PN ---
Progress Note (short form) - Note Progress Note: asymptomatic. denies Cp, SOB, fever, chills, n/V/C/D Current Medications Generic Name Dose Route Start Last Admin Trade Name Jess PRN Reason Stop Dose Admin Escitalopram Oxalate 10 mg 10/06/18 10:00 10/07/18 10:59 Lexapro - PO 10 mg DAILY NAA Administration Ceftriaxone Sodium 1 gm/ 50 mls @ 200 mls/hr 10/06/18 10:00 10/07/18 10:59 Dextrose IVPB 200 mls/hr DAILY NAA Administration Protocol Lactulose 30 gm 10/07/18 14:09 10/07/18 12:45 Cephulac (Oral Use) PO 30 gm TID PRN Administration CONSTIPATION Nadolol 40 mg 10/06/18 10:00 10/07/18 10:59 Corgard - PO 40 mg DAILY NAA Administration Rifaximin 550 mg 10/05/18 22:00 10/07/18 22:42 Xifaxan - PO 550 mg BID NAA Administration Spironolactone 25 mg 10/06/18 10:00 10/07/18 10:59 Aldactone - PO 25 mg DAILY NAA Administration Last Vital Signs Temp Pulse Resp BP Pulse Ox 97.5 F L 75 20 132/48 L 99 10/08/18 05:58 10/08/18 05:58 10/08/18 05:58 10/08/18 05:58 10/07/18 21:00 General NAD, able to say a few words in [place]ank[place], answers no to questions but does not respond appropriately to more complex questions CV S1 S2 RRR no murmur/rub/gallop Lungs CTA B/L anteriorly no wheezing/rales/rhonchi abdomen soft NT/ND no rebound or guarding. no suprapubic tenderness Extremities non pitting edema Microbiology 10/05/18 17:24 Urine - Urine - Catheterized Urine Culture - Final Escherichia Coli ASSESSMENT AND PLAN: 77yo F with PMH Cirrhosis2/2 schistosomiasis, dementia, HTN, CVA, CAD, SDH presented to the ER for altered mental status and found to have UTI and hepatic encephalopathy 1. Acute toxic metabolic encephalopathy- due to UTI and hepatic encephalopathy. alert and more verbal. as per daughter is at baseline. and eating well with assistance. 2. santos-sensitive E coli UTI- on ceftriaxone day 3. will switch to keflex to compete course 3. Decompensated cirrhosis-reported to be near baseline. titrate down lactulose. spoke iwth daughter about lactulose dosing. is aware of titrating medication to 2-3 BM per day. cont other medications. 4. dementia-baseline is intermittently verbal, assistance iwth ADL. can have simple conversations 5. CVA- not on asa due to allergy and hx of SDH 6. SDH- s/p nii hole. stable in size 7. DVT ppx-SCD 8. awaiting PT to ambulate. as per daughter she is able to walk with assistance. refuses to use RW. will have PT evaluate due to frequent falls. will d/c later today if no needs. spoke with daughter present at bedside, all questions answered. verbalized understanding and agreement with plan Visit type - Emergency Visit Emergency Visit: Yes ED Registration Date: 10/05/18 Care time: The patient presented to the Emergency Department on the above date and was hospitalized for further evaluation of their emergent condition. - New Patient This patient is new to me today: No - Critical Care Critical Care patient: No - Discharge Referral Referred to [facility] Yes Physician Referral: Toni Salgado MD ([facility])
[2018-10-08] MEDS: NADOLOL 40 MG TABLET (FP) PO SCH (10:32)
[2018-10-08] MEDS: RIFAXIMIN 550 MG TABLET (UD) PO SCH (10:36)
[2018-10-08] MEDS: CEFTRIAXONE 1 GM in DEXTROSE 5%-WATER - 50 ML IVPB SCH (10:36)
[2018-10-08] MEDS: ESCITALOPRAM OXALATE 10 MG TABLET (FP) PO SCH (10:36)
[2018-10-08] MEDS: SPIRONOLACTONE 25 MG TABLET (FP) PO SCH (10:36)
[2018-10-08 13:38] VITALS: BP 137/91; PULSE 87; TEMP 98.4
== END 2018-10-08 15:17 | disposition home health service (06) | DRG 441 ==
LOC: JER 14:48 → JERBED 21:20 → J7W 10-06 00:19
PROVIDERS: ADMIT Internal Medicine; ATTEND Internal Medicine
DX: K72.90 Hepatic failure, unspecified without coma (principal); G92 Toxic encephalopathy; I62.03 Nontraumatic chronic subdural hemorrhage; N39.0 Urinary tract infection, site not specified; B96.20 Unspecified Escherichia coli [E. coli] as the cause of diseases classified elsewhere; F03.90 Unspecified dementia, unspecified severity, without behavioral disturbance, psychotic disturbance, mood disturbance, and anxiety; K74.60 Unspecified cirrhosis of liver; K21.9 Gastro-esophageal reflux disease without esophagitis; I10 Essential (primary) hypertension; I25.10 Atherosclerotic heart disease of native coronary artery without angina pectoris; D75.89 Other specified diseases of blood and blood-forming organs
CPT/HCPCS: 36415; 70450-TC; 71045-TC-FY; 76705-TC; 80053; 81003; 82140; 82248; 82607; 83735; 84100; 84155; 84165; 84443; 84484; 85025; 85027; 85610; 85730; 87086; 87186; 93005; 93010; 97116-GP; 97161-GP; 99283-25

== ENCOUNTER 2019-01-26 15:11 | Inpatient (IN) | payer OTHER ==
--- NOTE | 2019-01-26 15:55 | PDOC ---
History of Present Illness - General Chief Complaint: Lethargy Stated Complaint: FAILURE TO THRIVE Time Seen by Provider: 01/26/19 15:41 - History of Present Illness Initial Comments: History limited 2/2 altered mental status and obtained from daughter. Ms. Aparicio is a 78 y/o female with PMH of HTN, CVA, CAD, hepatic encephalopathy, dementia, subdural hematoma, cirrhosis, brought in by daughter for worsening altered mental status over the past week. Reports that at baseline she has dementia, but over the past several days has decreased appetite, decreased alertness, decreased activity, decreased speech. Also states that patient has been holding her head and moaning over the past couple of days. Past History - Past Medical History Allergies/Adverse Reactions: Allergies Allergy/AdvReac Type Severity Reaction Status Date / Time aspirin Allergy Unknown Verified 10/05/18 15:17 Home Medications: Ambulatory Orders Escitalopram Oxalate [Lexapro -] 10 mg PO DAILY 06/11/14 Rifaximin [Xifaxan -] 550 mg PO BID tablet 06/09/17 Spironolactone [Aldactone -] 25 mg PO DAILY 08/06/17 Carvedilol [Coreg] 0 mg PO DAILY 01/26/19 Esomeprazole Magnesium [Nexium 24Hr] 40 mg PO DAILY 01/26/19 Lactulose [Generlac] 10 gm PO DAILY 01/26/19 Lactulose [Generlac] 45 gm PO TID 01/26/19 Nitroglycerin 2% Paste [Nitro-Bid] 1 gm TD ASDIR PRN 01/26/19 Omeprazole 40 mg PO DAILY 01/26/19 Propranolol HCl [Propranolol HCl ER] 60 mg PO DAILY 01/26/19 Anemia: Yes Asthma: No Cancer: No Cardiac Disorders: Yes (ID, CAD) CVA: No COPD: No CHF: No Dementia: Yes (encephalopathy) Diabetes: No GI Disorders: Yes (ULCER) Disorders: No HTN: Yes Hypercholesterolemia: No Liver Disease: Yes (cirrhosis) Seizures: No Thyroid Disease: No - Surgical History Abdominal Surgery: Yes Appendectomy: No Cardiac Surgery: No Cholecystectomy: Yes Lung Surgery: No Neurologic Surgery: No Orthopedic Surgery: No - Immunization History Immunization Up to Date: No - Suicide/Smoking/Psychosocial Hx Smoking History: Never smoked Have you smoked in the past 12 months: No Hx Alcohol Use: No Drug/Substance Use Hx: No Substance Use Type: None Hx Substance Use Treatment: No Review of Systems - Review of Systems Able to Perform ROS?: No (altered mental status ) *Physical Exam - Physical Exam Comments: Limited 2/2 patient's altered mental status and inability to participate in exam GENERAL: No acute distress. HEAD: No signs of trauma, normocephalic, atraumatic _ EYES: PERRLA, EOMI, conjunctiva clear_ NECK: no lymphadenopathy, no masses LUNGS: No distress, clear to auscultation bilaterally _ HEART: Regular rate and rhythm, normal S1 and S2, no murmurs appreciated, peripheral pulses normal and equal bilaterally._ ABDOMEN: Soft, TTP RUQ. No guarding, no rebound. No masses_ EXTREMITIES: Normal inspection, no edema. No clubbing or cyanosis_ SKIN: Warm, Dry, normal turgor, no rashes or lesions noted_ Heart Score/ECG Review #1 ECG reviewed & interpreted by me at: 15:45 NSR 61 bpm, no ST elevation/depression, normal axis, LVH. ED Treatment Course - LABORATORY CBC & Chemistry Diagram: 01/27/19 06:00 01/27/19 06:00 Medical Decision Making - Medical Decision Making 01/26/19 16:00 78F with extensive hx of CAD, CVA, SDH, cirrhosis, hepatic encephalopathy, presenting with altered mental status, lethargy, failure to thrive for the past 5 days. Per daughter, holding her head over the past couple of days and not interacting with family. -CBC, CMP, ammonia, coags -UA/UC -CXR, EKG, trop -CT head 01/26/19 17:15 CXR shows no acute chest pathology. 01/26/19 18:29 CT shows chronic subdural lateral hematoma. Present on head CT since May 2017. POC glucose 102. 01/26/19 2130 Discussed with the hospitalist who agrees to admit the patient. 01/26/19 22:[address] Gallardo who recommends trending trop. UA reviewed. No signs of UTI. Ammonia mildly elevated at 43.5. At her last admission for hepatic encephalopathy, patient's ammonia was > 140. *DC/Admit/Observation/Transfer Diagnosis at time of Disposition: Altered mental state Qualifiers: Altered mental status type: unspecified Qualified Code(s): R41.82 - Altered mental status, unspecified - Discharge Dispostion Condition at time of disposition: Stable - Referrals - Patient Instructions - Post Discharge Activity
--- NOTE | 2019-01-26 16:40 | PDOC ---
Attending Attestation - Resident Resident Name: Frank Gallagher - ED Attending Attestation I have performed the following: I have examined & evaluated the patient, The case was reviewed & discussed with the resident, I agree w/resident's findings & plan, Exceptions are as noted - HPI HPI: 01/26/19 17:02 78yo female with hx of cirrhosis and hepatic encephalopathy presents for eval of lethargy and refusal to eat x 2 days. Per the daughter at the bedside, pt did take her meds yesterday including her lactulose, but did not eat yesterday. States she would drink fluids yesterday. States today she would not take her meds or eat/drink. Pt is nonverbal at baseline. Pt unable to provide any hx. Pt lethargic, laying in the bed - opens eyes, and will move all extremities, nonverbal. - Physicial Exam PE: 01/26/19 17:04 Gen: awake, nonverbal, lethargic, but responsive to tactile stimuli heent: PERRL, pale conjunctiva, no icterus neck: supple heart: +s1s2 reg lungs: cta b/l, but poor inspiratory effort abd: soft, mild ruq ttp, suprapubic ttp, no rebound or guarding ext: no c/c/e neuro: nonverbal, responsive to tactile stimuli, no focal deficits, lethargic, but per daughter no new focal deficits - Medical Decision Making 01/26/19 17:07 a/p: 78yo female with altered ms and lethargy -suspect wosening of liver function/cirrhosis and hepatic encephalopathy -also concerned for uti given suprapubic ttp -will send labs, ekg, cxr, head ct, will need straight cath for ua and ucx -pt will need admission -pmd dr. sanchez -will monitor and reassess -will start ivf hydration 01/26/19 18:[address] - present since 2018 cxr clear cbc reviewed pending rest of labs and ua 01/26/19 19:08 mildly elevated trop 0.06 no acute ekg changes pt with allergy of asa will monitor and will need repeat trop pt nonverbal, difficult to assess if pt has cp 01/26/19 22:01 resident discussed the case with CELSO who accepts pt to service 01/26/19 22:01 2 calls placed to cards asa allergy Heart Score/ECG Review - ECG Intrepretation Comment:: 01/26/19 17:11 sinus at 61, nl axis, lvh, q waves septally which are age indeterminate, no acute st/t wave findings
[2019-01-26] MEDS ORDERED: SODIUM CHLORIDE 0.9% 500 ML INFUS.BAG IV ONE (17:00)
[2019-01-26 18:22] LABS: BASO % 0.8 % (0-2.0); EOS % 1.3 % (0-4.5); HEMATOCRIT 39.7 % (32.4-45.2); HEMOGLOBIN 13.5 GM/dL (10.7-15.3); MCH 35.4 pg (25.7-33.7); MCHC 33.9 g/dl (32.0-36.0); MEAN CELL VOLUME 104.4 fl (80-96); MEAN PLT VOLUME 9.8 fl (7.5-11.1); NEUT % 57.9 % (42.8-82.8); PLATELET COUNT 204 K/MM3 (134-434); VENOUS PC02 44.7 mmHg (38-52); VENOUS PH 7.39 (7.31-7.41); WHITE BLOOD COUNT 6.2 K/mm3 (4.0-10.0)
[2019-01-26 18:24] LABS: VENOUS PO2 < 49 mmHg (28-48)
[2019-01-26 18:50] LABS: INR 1.28 (0.83-1.09); PROTHROMBIN TIME (PATIENT) 15.1 SEC (9.7-13.0)
[2019-01-26 18:54] LABS: ALBUMIN 2.6 g/dl (3.4-5.0); BILIRUBIN,TOTAL 1.3 mg/dL (0.2-1); BLOOD UREA NITROGEN 20.3 mg/dL (7-18); CREATININE 0.8 mg/dL (0.55-1.3); POTASSIUM 4.8 mmol/L (3.5-5.1); TOT PROT 6.7 g/dl (6.4-8.2)
[2019-01-26 19:48] LABS: EPI CELLS 0.6 /HPF (0-5/HPF); HYALINE CASTS 0 /lpf (0-8); PH,URINE 6.5 (5.0-8.0); URINE APPEARANCE CLEAR; URINE BACTERIA 1109.1 /hpf (NEGATIVE); URINE BILIRUBIN 1+ (NEGATIVE); URINE COLOR DK YELLOW; URINE GLUCOSE (UA) NEGATIVE (NEGATIVE); URINE KETONE TRACE (NEGATIVE); URINE LEUK ESTERASE TRACE (NEGATIVE); URINE NITRITE NEGATIVE (NEGATIVE); URINE PROTEIN NEGATIVE (NEGATIVE); URINE RBC 1 /hpf (0-4); URINE UROBILINOGEN 0.2 mg/dL (0.2-1.0); URINE WBC 1 /hpf (0-5)
--- NOTE | 2019-01-26 23:25 | HP ---
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 The patient had been getting more lethargic, moving around less, had decreased speech, and had decreased appetite over the last week and a half. She was still relatively at her baseline mental status until this morning when she was not responsive whatsoever to voice or tactile stimuli and was brought to the ED. The patient at baseline is able to state if she is uncomfortable, able to respond to basic commands, and verbalize simple statements and does not ambulate well, typically only moving from bed to wheelchair to chair. The patient has been receiving her regular doses of lactulose and rifaxmin and the family knows to titrate lactulose doses based upon her bowel movements. 2 days ago, the patient had several large bowel movements after 1-2 days of constipation previously. Otherwise, bowel movements have been normal. According to the daughter at bedside, the patient had not been complaining of any pain or discomfort as of recently and did not report any recent falls, and no recent syncope. Family did not report any changes to medication, no recent sick contacts. ER course was notable for: (1) Ammonia 42.5, troponins 0.06, UA ketones trace, 1+ bili, trace LE, bacteria 1109 (2) Head CT with possible acute nonhemorrhagic R frontal cortical infarct, small chronic left frontal subdural hematoma (3) Abd/pelvis CT showing hepatic cirrhosis and TIPS in place and s/p splenic artery embolization Recent Travel: denies PAST MEDICAL HISTORY: as above PAST SURGICAL HISTORY: TIPS cholesytectomy nii hole breast abscess drained Social History: Smoking: denies Alcohol: denies Drugs: denies Family History: denied significant family history Allergies aspirin Allergy (Unknown, Verified 10/05/18 15:17) HOME MEDICATIONS: Home Medications Medication Instructions Recorded Escitalopram Oxalate [Lexapro -] 10 mg PO DAILY 06/11/14 Rifaximin [Xifaxan -] 550 mg PO BID tablet 06/09/17 Spironolactone [Aldactone -] 25 mg PO DAILY 08/06/17 Carvedilol [Coreg] 0 mg PO DAILY 01/26/19 Esomeprazole Magnesium [Nexium 40 mg PO DAILY 01/26/19 24Hr] Lactulose [Generlac] 10 gm PO DAILY 01/26/19 Nitroglycerin 2% Paste [Nitro-Bid] 1 gm TD ASDIR PRN 01/26/19 REVIEW OF SYSTEMS Patient unable to verbalize any complaints or review of systems. Family deny any reports of the patient reporting any complaints. PHYSICAL EXAMINATION Vital Signs - 24 hr 01/26/19 01/26/19 15:15 22:35 Temperature 96.9 F L Pulse Rate 63 Pulse Rate [ 70 Apical] Respiratory 16 18 Rate Blood Pressure 120/42 L Blood Pressure 139/73 [Right Arm] O2 Sat by Pulse 100 98 Oximetry (%) GENERAL: Awake, not alert, not following commands, not oriented. HEAD: Normal with no signs of trauma. EYES: Pupils equal, round and reactive to light, sluggish, sclera with mild icterus. EARS, NOSE, THROAT: Oropharynx clear without exudates. Dry mucous membranes. NECK: Normal range of motion, supple without lymphadenopathy. JVD and hepatojugular reflex present. LUNGS: Breath sounds poorly appreciated as patient unable to comply with respiratory exam. No acute crackles, coarse breath sounds, wheezing noted. HEART: Regular rate and rhythm, normal S1 and S2 without murmur, rub. ABDOMEN: Soft, nontender, mildly distended, normoactive bowel sounds, no guarding, no rebound, no masses. Prominent hepatomegaly noted below the ribs. MUSCULOSKELETAL: No bony deformities or tenderness. UPPER EXTREMITIES: 2+ pulses, warm, well-perfused. No cyanosis. No clubbing. No peripheral edema. LOWER EXTREMITIES: 1+ pulses, warm, well-perfused. No calf tenderness. Trace peripheral edema. NEUROLOGICAL: Unable to comply with neurological exam. Did not respond to blink to threat. Negative glabellar reflex. No spasticity or flaccidity noted. Withdraws all 4 extremities to painful stimuli. PSYCHIATRIC: Unresponsive to examination. Will respond with smile to daughter in the room. SKIN: Mild jaundice noted. No angiomata or varices noted externally, no bruising noted. Laboratory Results - last 24 hr 01/26/19 01/26/19 01/26/19 18:09 18:11 18:11 WBC RBC Hgb Hct MCV MCH MCHC RDW Plt Count MPV Absolute Neuts (auto) Neutrophils % Lymphocytes % Monocytes % Eosinophils % Basophils % Nucleated RBC % PT with INR INR PTT (Actin FS) 33.7 VBG pH POC VBG pCO2 POC VBG pO2 VBG HCO3 VBG O2 Sat (Matt) VBG Base Excess Sodium Potassium Chloride Carbon Dioxide Anion Gap BUN Creatinine Est GFR (CKD-EPI)AfAm Est GFR (CKD-EPI)NonAf POC Glucometer 102 Random Glucose Calcium Magnesium Total Bilirubin AST ALT Alkaline Phosphatase Ammonia 43.50 H Creatine Kinase Creatine Kinase Index CK-MB (CK-2) Troponin I Total Protein Albumin Urine Color Urine Appearance Urine pH Ur Specific Star Urine Protein Urine Glucose (UA) Urine Ketones Urine Blood Urine Nitrite Urine Bilirubin Urine Urobilinogen Ur Leukocyte Esterase Urine WBC (Auto) Urine RBC (Auto) Urine Casts (Auto) U Epithel Cells (Auto) Urine Bacteria (Auto) Blood Type Antibody Screen 01/26/19 01/26/19 01/26/19 18:11 18:11 18:11 WBC 6.2 RBC 3.80 Hgb 13.5 Hct 39.7 D MCV 104.4 H MCH 35.4 H MCHC 33.9 RDW 14.0 Plt Count 204 MPV 9.8 Absolute Neuts (auto) 3.6 Neutrophils % 57.9 Lymphocytes % 31.0 Monocytes % 9.0 Eosinophils % 1.3 Basophils % 0.8 Nucleated RBC % 0 PT with INR INR PTT (Actin FS) VBG pH POC VBG pCO2 POC VBG pO2 VBG HCO3 VBG O2 Sat (Matt) VBG Base Excess Sodium 146 H Potassium 4.8 Chloride 109 H Carbon Dioxide 28 Anion Gap 9 BUN 20.3 H Creatinine 0.8 Est GFR (CKD-EPI)AfAm 82.42 Est GFR (CKD-EPI)NonAf 71.11 POC Glucometer Random Glucose 99 Calcium 9.0 Magnesium Total Bilirubin 1.3 H AST 40 H ALT 21 Alkaline Phosphatase 88 Ammonia Creatine Kinase 259 H Creatine Kinase Index 2.3 CK-MB (CK-2) 6.0 H Troponin I 0.06 H Total Protein 6.7 Albumin 2.6 L Urine Color Urine Appearance Urine pH Ur Specific Star Urine Protein Urine Glucose (UA) Urine Ketones Urine Blood Urine Nitrite Urine Bilirubin Urine Urobilinogen Ur Leukocyte Esterase Urine WBC (Auto) Urine RBC (Auto) Urine Casts (Auto) U Epithel Cells (Auto) Urine Bacteria (Auto) Blood Type Antibody Screen 01/26/19 01/26/1901/26/19 18:11 18:11 18:11 WBC RBC Hgb Hct MCV MCH MCHC RDW Plt Count MPV Absolute Neuts (auto) Neutrophils % Lymphocytes % Monocytes % Eosinophils % Basophils % Nucleated RBC % PT with INR 15.10 H INR 1.28 H PTT (Actin FS) VBG pH 7.39 POC VBG pCO2 44.7 POC VBG pO2 < 49 H VBG HCO3 26.7 VBG O2 Sat (Matt) 36.4 L VBG Base Excess 1.9 Sodium Potassium Chloride Carbon Dioxide Anion Gap BUN Creatinine Est GFR (CKD-EPI)AfAm Est GFR (CKD-EPI)NonAf POC Glucometer Random Glucose Calcium Magnesium 2.0 Total Bilirubin AST ALT Alkaline Phosphatase Ammonia Creatine Kinase Creatine Kinase Index CK-MB (CK-2) Troponin I Total Protein Albumin Urine Color Urine Appearance Urine pH Ur Specific Star Urine Protein Urine Glucose (UA) Urine Ketones Urine Blood Urine Nitrite Urine Bilirubin Urine Urobilinogen Ur Leukocyte Esterase Urine WBC (Auto) Urine RBC (Auto) Urine Casts (Auto) U Epithel Cells (Auto) Urine Bacteria (Auto) Blood Type Antibody Screen 01/26/19 01/26/19 18:11 19:15 WBC RBC Hgb Hct MCV MCH MCHC RDW Plt Count MPV Absolute Neuts (auto) Neutrophils % Lymphocytes % Monocytes % Eosinophils % Basophils % Nucleated RBC % PT with INR INR PTT (Actin FS) VBG pH POC VBG pCO2 POC VBG pO2 VBG HCO3 VBG O2 Sat (Matt) VBG Base Excess Sodium Potassium Chloride Carbon Dioxide Anion Gap BUN Creatinine Est GFR (CKD-EPI)AfAm Est GFR (CKD-EPI)NonAf POC Glucometer Random Glucose Calcium Magnesium Total Bilirubin AST ALT Alkaline Phosphatase Ammonia Creatine Kinase Creatine Kinase Index CK-MB (CK-2) Troponin I Total Protein Albumin Urine Color Dk yellow Urine Appearance Clear Urine pH 6.5 Ur Specific Star 1.024 Urine Protein Negative Urine Glucose (UA) Negative Urine Ketones Trace H Urine Blood Negative Urine Nitrite Negative Urine Bilirubin 1+ H Urine Urobilinogen 0.2 Ur Leukocyte Esterase Trace Urine WBC (Auto) 1 Urine RBC (Auto) 1 Urine Casts (Auto) 0 U Epithel Cells (Auto) 0.6 Urine Bacteria (Auto) 1109.1 Blood Type O POSITIVE Antibody Screen Negative EKG--> NSR, LVH, questionable septal infarct, Qtc 479 ASSESSMENT/PLAN: Sonia Aparicio is a 78 year old female with a past medical history of 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 Altered Mental Status Troponemia HTN Macrocytosis Altered Mental Status - baseline of dementia in the setting likely acute hepatic encephalopathy - head CT as above, CXR with no acute pathology, U/S patient was uncooperative with, Abd CT as above - ammonia level elevated - continue po lactulose and rifaximin and titrate to 3-4 bowel movements per day - B12, folate, RPR, TSH, Mag, CBC, CMP - if cannot tolerate PO may need NG tube - dysphagia/fall precautions - continuous bedrest - neuro consult, evaluate for need to repeat head CT as motion artifact present - gentle hydration - unlikely UTI - in setting of liver disease need to assess if patient has been screened for esophageal varices, daughter at bedside stated that she been and is followed by GI outpatient Troponemia - troponins 0.06-->0.16, continue to trend - Dr. Gallardo was consulted, recommended to trend trops - likely in setting of demand ischemia of decreased oral intake and hepatic encephalopathy - lipid studies - echo - repeat EKG in the morning HTN - continue home propranolol - continue home spironlactone Macrocytosis - likely from liver disease - B12, folate FEN - NS at 42 cc/hr - continue to monitor electrolytes and replete as necessary - Dysphagia puree diet, crush meds in applesauce - speech and swallow consult Prophylaxis - heparin 5000 units subq tid Code - full code UJLIO MARTINEZ DO - PGY-1 Visit type - Emergency Visit Emergency Visit: Yes ED Registration Date: 01/26/19 Care time: The patient presented to the Emergency Department on the above date and was hospitalized for further evaluation of their emergent condition. - New Patient This patient is new to me today: Yes Date on this admission: 01/27/19 - Critical Care Critical Care patient: No
[2019-01-26] MEDS: SODIUM CHLORIDE 1,000 ML IV SCH (23:31)
[2019-01-27] MEDS ORDERED: NITROGLYCERIN 2% OINTMENT - 1GM PACKET TD PRN (02:11)
--- NOTE | 2019-01-27 04:52 | PN ---
Teaching Attending Note Name of Resident: Hong Amin ATTENDING PHYSICIAN STATEMENT I saw and evaluated the patient. Chart, data,imaging reviewed I reviewed the resident's note and discussed the case with the resident. I agree with the resident's findings and plan as documented. SUBJECTIVE: 78 year old woman w/ cirrhosis (secondary to schistosomiasis), hepatic encephalopathy, CVA, HTN, CAD, dementia, chronic unchanged subdural hematoma w/ worsened mental status brought in by daughter. She reportedly had 1 only 1 bm per day recently. OBJECTIVE: Last Vital Signs Temp Pulse Resp BP Pulse Ox 96.9 F L 65 17 108/72 97 01/26/19 15:15 01/27/19 07:05 01/27/19 07:05 01/27/19 07:05 01/27/19 07:05 general -disoriented heent- at, nc, nonicteric sclera neck supple cv -s1+s2+ rrr chest- cta b/l abd- soft, nt, bs+ ext -no edema Abnormal Lab Results 01/26/19 01/26/19 01/26/19 18:11 18:11 18:11 MCV 104.4 H MCH 35.4 H PT with INR INR POC VBG pO2 VBG O2 Sat (Matt) Sodium Chloride BUN Total Bilirubin AST Ammonia 43.50 H Creatine Kinase 259 H CK-MB (CK-2) 6.0 H Troponin I 0.06 H Albumin Urine Ketones Urine Bilirubin 01/26/19 01/26/19 01/26/19 18:11 18:11 18:11 MCV MCH PT with INR 15.10 H INR 1.28 H POC VBG pO2 < 49 H VBG O2 Sat (Matt) 36.4 L Sodium 146 H Chloride 109 H BUN 20.3 H Total Bilirubin 1.3 H AST 40 H Ammonia Creatine Kinase CK-MB (CK-2) Troponin I Albumin 2.6 L Urine Ketones Urine Bilirubin 01/26/19 01/27/19 19:15 00:38 MCV MCH PT with INR INR POC VBG pO2 VBG O2 Sat (Matt) Sodium Chloride BUN Total Bilirubin AST Ammonia Creatine Kinase 261 H CK-MB (CK-2) 5.6 H Troponin I 0.16 H Albumin Urine Ketones Trace H Urine Bilirubin 1+ H imaging reviewed ASSESSMENT AND PLAN: #ams - likely hepatic encephalopathy, head ct w/ chronic unchanged subdural hematoma. Questonable cerebral infarct? may be artifact . -telemetry -lactulose -rifaximin -send tsh, vit b12, rpr -neuro input for cerebral infarct vs artifact -bed rest -fall precautions #ESLD s/p TIPS #Tropinemia - troponins 0.06-->0.16, continue to trend - Dr. Gallardo was consulted, recommended to trend trops - likely in setting of demand ischemia of decreased oral intake and hepatic encephalopathy - lipid studies - echo #HTN - continue home propranolol - continue home spironlactone #dvt ppx -h
[2019-01-27] MEDS ORDERED: HEPARIN NA (PORCINE) 5,000 UNITS/ML 1ML VIAL SQ SCH (06:00)
[2019-01-27] MEDS ORDERED: LACTULOSE 20 GM/30 ML UDC (FOR ORAL USE ONLY) ONE (06:15)
[2019-01-27] MEDS: LACTULOSE 20 GM/30 ML UDC (FOR ORAL USE ONLY) PO SCH ×4 (06:17→21:09)
[2019-01-27 07:15] LABS: BASO % 0.4 % (0-2.0); EOS % 3.6 % (0-4.5); HEMATOCRIT 36.8 % (32.4-45.2); HEMOGLOBIN 12.6 GM/dL (10.7-15.3); MCH 35.8 pg (25.7-33.7); MCHC 34.2 g/dl (32.0-36.0); MEAN CELL VOLUME 104.6 fl (80-96); MEAN PLT VOLUME 9.9 fl (7.5-11.1); MONO % 8.8 % (3.8-10.2); NEUT % 51.2 % (42.8-82.8); PLATELET COUNT 180 K/MM3 (134-434); RBC 3.52 M/mm3 (3.60-5.2); WHITE BLOOD COUNT 5.3 K/mm3 (4.0-10.0)
[2019-01-27] MEDS ORDERED: NITROGLYCERIN 2% OINTMENT - 1GM PACKET TD SCH (07:15)
[2019-01-27 07:22] LABS: ALBUMIN 2.3 g/dl (3.4-5.0); BILIRUBIN,DIRECT 0.5 mg/dL (0.0-0.2); BILIRUBIN,TOTAL 1.6 mg/dL (0.2-1); BLOOD UREA NITROGEN 17.8 mg/dL (7-18); CALCIUM 8.5 mg/dL (8.5-10.1); CREATININE 0.6 mg/dL (0.55-1.3); POTASSIUM 3.7 mmol/L (3.5-5.1)
[2019-01-27 07:44] LABS: MAGNESIUM 1.6 mg/dL (1.8-2.4); PHOSPHOROUS 3.2 mg/dL (2.5-4.9)
--- NOTE | 2019-01-27 09:01 | CON.CARD ---
Consult Consult Specialty:: Cardiology Referred by:: Dr. Walker Reason for Consultation:: Cardiac enzyme abnormality - History of Present Illness Chief Complaint: altered MS History of Present Illness: Patient currently nonverbal, baseline not known to me: Sonia Aparicio is a 78 year old female with a past medical history of 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 The patient had been getting more lethargic, moving around less, had decreased speech, and had decreased appetite over the last week and a half. She was still relatively at her baseline mental status until this morning when she was not responsive whatsoever to voice or tactile stimuli and was brought to the ED. The patient at baseline is able to state if she is uncomfortable, able to respond to basic commands, and verbalize simple statements and does not ambulate well, typically only moving from bed to wheelchair to chair. The patient has been receiving her regular doses of lactulose and rifaxmin and the family knows to titrate lactulose doses based upon her bowel movements. 2 days ago, the patient had several large bowel movements after 1-2 days of constipation previously. Otherwise, bowel movements have been normal. According to the daughter at bedside, the patient had not been complaining of any pain or discomfort as of recently and did not report any recent falls, and no recent syncope. Family did not report any changes to medication, no recent sick contacts. 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 (hepatic encephalopathy) Cardio/Vascular: Yes: CAD, HTN Gastrointestinal: Yes: Other (liver cirrhosis) Hepatobiliary: Yes: Cirrhosis ...LMP: 06/05/17 Infectious Disease: Yes: Other (Schistosomiasis) Musculoskeletal: Yes: Chronic low back pain - Alcohol/Substance Use Hx Alcohol Use: No History of Substance Use: reports: None - Smoking History Smoking history: Never smoked Have you smoked in the past 12 months: No - Social History ADL: Family Assistance History of Recent Travel: No Home Medications - Allergies Allergies/Adverse Reactions: Allergies Allergy/AdvReac Type Severity Reaction Status Date / Time aspirin Allergy Unknown Verified 10/05/18 15:17 - Home Medications Home Medications: Ambulatory Orders Escitalopram Oxalate [Lexapro -] 10 mg PO DAILY 06/11/14 Rifaximin [Xifaxan -] 550 mg PO BID tablet 06/09/17 Spironolactone [Aldactone -] 25 mg PO DAILY 08/06/17 Carvedilol [Coreg] 0 mg PO DAILY 01/26/19 Esomeprazole Magnesium [Nexium 24Hr] 40 mg PO DAILY 01/26/19 Lactulose [Generlac] 10 gm PO DAILY 01/26/19 Lactulose [Generlac] 30 gm PO TID 01/26/19 Nitroglycerin 2% Paste [Nitro-Bid] 1 gm TD ASDIR PRN 01/26/19 Omeprazole 40 mg PO DAILY 01/26/19 Propranolol HCl [Propranolol HCl ER] 60 mg PO DAILY 01/26/19 Vital Signs: Vital Signs Temperature 96.9 F L 01/26/19 15:15 Pulse Rate 65 01/27/19 07:05 Respiratory Rate 17 01/27/19 07:05 Blood Pressure 108/72 01/27/19 07:05 O2 Sat by Pulse Oximetry (%) 97 01/27/19 07:05 Constitutional: Yes: Cachectic HENT: Yes: Atraumatic Respiratory: Yes: CTA Bilaterally, Other (no wheezing or rales) Gastrointestinal: Yes: Soft (No rebound or guarding) JVD: No Carotid Bruit: No Heart Sounds: Yes: S1, S2 (RRR) Edema: No Neurological: Yes: Confusion, Lethargy - Other Data Labs, Other Data: CBC, BMP 01/27/19 06:00 01/27/19 06:00 INR, PTT INR 1.28 (0.83-1.09) H 01/26/19 18:11 Troponin, BNP 01/26/19 01/27/19 01/27/19 18:11 00:38 06:00 Troponin I 0.06 H 0.16 H 0.12 H Troponin, BNP 01/26/19 01/27/19 01/27/19 18:11 00:38 06:00 Troponin I 0.06 H 0.16 H 0.12 H Microbiology Laboratory Tests 01/26/19 01/26/19 01/26/19 18:11 18:11 19:15 WBC Hgb Plt Count PT with INR 15.10 H INR 1.28 H Creatinine AST Ammonia 43.50 H Creatine Kinase CK-MB (CK-2) Troponin I Urine Ketones Trace H Urine Bilirubin 1+ H Urine Urobilinogen 0.2 Ur Leukocyte Esterase Trace RPR Titer 01/27/19 01/27/19 01/27/19 00:38 00:38 06:00 WBC Hgb Plt Count PT with INR INR Creatinine AST Ammonia Creatine Kinase 261 H 252 H CK-MB (CK-2) 5.6 H 6.2 H Troponin I 0.16 H 0.12 H Urine Ketones Urine Bilirubin Urine Urobilinogen Ur Leukocyte Esterase RPR Titer Pending 01/27/19 01/27/19 06:00 06:00 WBC 5.3 Hgb 12.6 Plt Count 180 PT with INR INR Creatinine 0.6 AST 40 H Ammonia Creatine Kinase CK-MB (CK-2) Troponin I Urine Ketones Urine Bilirubin Urine Urobilinogen Ur Leukocyte Esterase RPR Titer NSR 61, LVH Echo: Pending Imaging - Results Chest X-ray: Image Reviewed EKG: Image Reviewed Assessment/Plan IMP: 1. Altered mental status, likely due to hepatic encephalopathy, cirrhosis 2. Possible CVA vs artifact 3. Borderline TnI elevation w/ flat trend, doubt ACS. REC: 1. Treatment of hepatic encephalopathy as per primary team 2. Neuro evaluation and consider MRI brain 3. Echo for EF assessment. Do not suspect Type I KS; borderline elevation may be due to demand ischemia is setting of possible underlying infection. +TnI may also be seen in setting of CVA. Reasonable to observe on tele x 24 hours. 4. Cont Propanolol and Aldactone for chronic cirrhosis/portal HTN
[2019-01-27] MEDS ORDERED: MAGNESIUM OXIDE 400 MG TABLET (FP) PO ONE (09:38)
[2019-01-27 09:41] LABS: ERYTHROCYTE SEDIMENTATION RATE 14 mm/hr (0-30)
[2019-01-27] MEDS ORDERED: SPIRONOLACTONE 25 MG TABLET (FP) PO SCH (10:00)
--- NOTE | 2019-01-27 10:32 | CON.NEURO ---
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 (hepatic encephalopathy) Cardio/Vascular: Yes: CAD, HTN Gastrointestinal: Yes: Other (liver cirrhosis) Hepatobiliary: Yes: Cirrhosis ...LMP: 06/05/17 Infectious Disease: Yes: Other (Schistosomiasis) Musculoskeletal: Yes: Chronic low back pain - Alcohol/Substance Use Hx Alcohol Use: No History of Substance Use: reports: None - Smoking History Smoking history: Never smoked Have you smoked in the past 12 months: No - Social History ADL: Family Assistance History of Recent Travel: No Home Medications - Allergies Allergies/Adverse Reactions: Allergies Allergy/AdvReac Type Severity Reaction Status Date / Time aspirin Allergy Unknown Verified 10/05/18 15:17 - Home Medications Home Medications: Ambulatory Orders Escitalopram Oxalate [Lexapro -] 10 mg PO DAILY 06/11/14 Rifaximin [Xifaxan -] 550 mg PO BID tablet 06/09/17 Spironolactone [Aldactone -] 25 mg PO DAILY 08/06/17 Carvedilol [Coreg] 0 mg PO DAILY 01/26/19 Esomeprazole Magnesium [Nexium 24Hr] 40 mg PO DAILY 01/26/19 Lactulose [Generlac] 10 gm PO DAILY 01/26/19 Lactulose [Generlac] 30 gm PO TID 01/26/19 Nitroglycerin 2% Paste [Nitro-Bid] 1 gm TD ASDIR PRN 01/26/19 Omeprazole 40 mg PO DAILY 01/26/19 Propranolol HCl [Propranolol HCl ER] 60 mg PO DAILY 01/26/19 Physical Exam-Neuro Vital Signs: Vital Signs Temperature 96.9 F L 01/26/19 15:15 Pulse Rate 65 01/27/19 07:05 Respiratory Rate 17 01/27/19 07:05 Blood Pressure 108/72 01/27/19 07:05 O2 Sat by Pulse Oximetry (%) 97 01/27/19 07:05 Labs: CBC, BMP 01/27/19 06:00 01/27/19 06:00 INR, PTT INR 1.28 (0.83-1.09) H 01/26/19 18:11 Assessment/Plan cc Altered Mental status HPI 78 year old female with past medical history of cirrhosis, Dementia, Stroke , HTN, CAD and subdural hematoma. She presented with worsening of mental status. There is no history of seizure or high grade fever or any fall. PAST MEDICAL HISTORY: as above PAST SURGICAL HISTORY: TIPS cholesytectomy nii hole breast abscess drained Social History: Smoking: denies Alcohol: denies Drugs: denies Family History: denied significant family history Allergies aspirin Allergy (Unknown, Verified 10/05/18 15:17) HOME MEDICATIONS: Home Medications Medication Instructions Recorded Escitalopram Oxalate [Lexapro -] 10 mg PO DAILY 06/11/14 Rifaximin [Xifaxan -] 550 mg PO BID tablet 06/09/17 Spironolactone [Aldactone -] 25 mg PO DAILY 08/06/17 Carvedilol [Coreg] 0 mg PO DAILY 01/26/19 Esomeprazole Magnesium [Nexium 40 mg PO DAILY 01/26/19 24Hr] Lactulose [Generlac] 10 gm PO DAILY 01/26/19 Nitroglycerin 2% Paste [Nitro-Bid] 1 gm TD ASDIR PRN 01/26/19 ROS,FH,SH reviewed in chart NEUROLOGICAL EXAMINATION Alert , opens eyes, and withdraws to pain and not able to follow command eomi, pupils reactive, no face asymmetry moving all extremity ct head showed there is? right frontal lobe infarc Assessment/Plan worsening of mental status, most likley acute hepatic encephalopathy, given her history and high nh3, though possibility of stroke cant rule out. Clinically it is less likely that she has stroke Plan: suggest to add aspirin if ok with primary - repeat ct head, and mri ofbrain can be obtained once she is stable - carotid ultrasound once she is stable - pt - continue treatment for hepatic encephalopathy as per primary Thanking you so much Abrahan Mcdonald MD
--- NOTE | 2019-01-27 10:47 | CONSULT ---
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 The patient had been getting more lethargic, moving around less, had decreased speech, and had decreased appetite over the last week and a half. She was still relatively at her baseline mental status until this morning when she was not responsive whatsoever to voice or tactile stimuli and was brought to the ED. The patient at baseline is able to state if she is uncomfortable, able to respond to basic commands, and verbalize simple statements and does not ambulate well, typically only moving from bed to wheelchair to chair. The patient has been receiving her regular doses of lactulose and rifaxmin and the family knows to titrate lactulose doses based upon her bowel movements. 2 days ago, the patient had several large bowel movements after 1-2 days of constipation previously. Otherwise, bowel movements have been normal. According to the daughter at bedside, the patient had not been complaining of any pain or discomfort as of recently and did not report any recent falls, and no recent syncope. Family did not report any changes to medication, no recent sick contacts. ER course was notable for: (1) Ammonia 42.5, troponins 0.06, UA ketones trace, 1+ bili, trace LE, bacteria 1109 (2) Head CT with possible acute nonhemorrhagic R frontal cortical infarct, small chronic left frontal subdural hematoma (3) Abd/pelvis CT showing hepatic cirrhosis and TIPS in place and s/p splenic artery embolization Per Neurology-worsening of mental status, most likely acute hepatic encephalopathy, given her history and high nh3, though possibility of stroke cant rule out. Clinically it is less likely that she has stroke Plan: suggest to add aspirin if ok with primary - repeat ct head, and mri of brain can be obtained once she is stable - carotid ultrasound once she is stable Selected Entries 01/26/19 15:15 Temperature 96.9 F L Laboratory Tests 01/27/19 06:00 WBC 5.3 Pt seen in ED. Lethargic. Opened eyes briefly. Not responding to questions posed in [place]. Too lethargic to assess reliably. Nursing reports that she tolerated meds and water earlier. 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: Alzheimer's, Dementia, Other (hepatic encephalopathy) Cardiovascular: Yes: CAD, HTN Gastrointestinal: Yes: Other (liver cirrhosis) Hepatobiliary: Yes: Cirrhosis ...LMP: 06/05/17 Heme/Onc: Yes: Anemia Infectious Disease: Yes: Other (Schistosomiasis) Musculoskeletal: Yes: Chronic low back pain - Smoking History Smoking history: Never smoked Have you smoked in the past 12 months: No - Alcohol/Substance Use Hx Alcohol Use: No History of Substance Use: reports: None - Social History ADL: Family Assistance History of Recent Travel: No History - Admission Reason For Visit: HEPATIC ENCEPHALOPATHY - Diagnostics X-ray: Report Reviewed CT Scan: Report Reviewed MRI: Pending - General Mental Status: Lethargic (with tactile stimulation but briefly for me) Attention: Severe Impairment Speech Evaluation - Communication Primary Language: BANGLADES[place] - Speech Characteristics Articulation: Yes: Precise - Swallow Evaluation/Bedside Assessment Current Nutritional Intake: Dysphagia Pureed, Thin Liquids Dentition: Yes: Edentulous Recommendations - Speech Evaluation, Impression/Plan Impression: Pt seen in ED. Lethargic. Opened eyes briefly. Not responding to questions posed in [place]. Too lethargic to assess reliably. Nursing reports that she tolerated meds and water earlier. - Dysphagia Impressions/Plan Dysphagia Impressions: Too Lethargic to Assess *Silent aspiration: cannot be R/O at bedside Recommendations: Other (Feed only if sufficiently alert. Concur with Puree. Thin vs nectar based on 3 oz water test to be repeated by nursing before PO trials.) - Recommendations Medication Administration: Crushed with applesauce
[2019-01-27] MEDS: PANTOPRAZOLE 40 MG TABLET (FP) PO SCH (11:32)
[2019-01-27] MEDS: RIFAXIMIN 550 MG TABLET (UD) PO SCH ×2 (11:32→22:16)
--- NOTE | 2019-01-27 14:05 | EKG ---
Test Reason : Blood Pressure : / mmHG Vent. Rate : 070 BPM Atrial Rate : 070 BPM P-R Int : 000 ms QRS Dur : 092 ms QT Int : 464 ms P-R-T Axes : 000 -15 069 degrees QTc Int : 501 ms POOR DATA QUALITY, INTERPRETATION MAY BE ADVERSELY AFFECTED Suspect Normal sinus rhythm with 1st degree AV block PROLONGED QT ABNORMAL ECG Confirmed by RAUDEL CROW MD ([id number]) on 01/27/2019 2:04:44 PM Referred By: Confirmed By:RAUDEL CROW MD
--- NOTE | 2019-01-27 14:10 | EKG ---
Test Reason : Blood Pressure : / mmHG Vent. Rate : 061 BPM Atrial Rate : 061 BPM P-R Int : 140 ms QRS Dur : 094 ms QT Int : 476 ms P-R-T Axes : 055 -04 072 degrees QTc Int : 479 ms NORMAL SINUS RHYTHM MINIMAL VOLTAGE CRITERIA FOR LVH, MAY BE NORMAL VARIANT ABNORMAL ECG WHEN COMPARED WITH ECG OF 05-OCT-2018 16:31, NO SIGNIFICANT CHANGE WAS FOUND Confirmed by RAUDEL CROW MD ([id number]) on 01/27/2019 2:10:03 PM Referred By: Confirmed By:RAUDEL CROW MD
--- NOTE | 2019-01-27 14:27 | PN ---
Teaching Attending Note Name of Resident: Brandie Nixon ATTENDING PHYSICIAN STATEMENT I saw and evaluated the patient. I reviewed the resident's note and discussed the case with the resident. I agree with the resident's findings and plan as documented. SUBJECTIVE: unable to obtain hx as not cooperative . 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 dry MM, NO JVD .resists exam CV: RRR, no MRG Lungs: did nto allow exam Abd: soft, NT, ND, NL BS Ext : no edema or erythema on upper or lower ext ASSESSMENT AND PLAN: 78 y/o lady with h/o cirrhosis due to schistosomiasis , splenic vein embolization , hepatic encephalopathy, CAD, HTN, CVA , s/p TIPS, chronic subdural hematoma, and dementia who presented with AMS. 1- AMS: doubt hepatic encephalopathy. ammonia level is not that high, and she has been using lactulose. she has signs of volume depletion /dehydration ( high BUN/cr , high NA ) , this could be responsible need to r/o CVA given her history of CVA and sudden change in mental status - obtain MRI of the brain - if not able to tolerate or stay still for it , then can repeat CT , although less sensitive - d/w Dr. Mcdonald and he agrees with above - Has an allergy to ASA ( rash in past) , not contraindicated from GI stand point per daugther. However, due to her h/o SDH , she was not on it.will confirm /r/o acute /subacute stroke through MRI, and if antiplatlets are needed , then will have her cleared by neuro sx - start gentle hydration and hold spironolactone. can probably dc tomorrow - No ascitis on CT, no Abd tenderness on exam, no suspicion for SBP. UA is clean and cxray is clean - RPR, BA12, and TSH , NL 2- H/o Cirrhosis , and hepatic encephalopathy , s/p TIPS - will cont her lactulose and rifaximin - goal 3-4 BM a day. - hold spironolactone as above - Not sure if she 3- Eelvated trop: likely demand ischemia. EKG with L axis, and QTC of 501, no acute ischemic changes. - trend. - echo pendign - tele 4- H/o HTN: cont propranolol - will confirm with daughter if she has varices or propranolol is used for HTN 5-DVT PX : start SQ heparin
[2019-01-27 17:31] VITALS: BMI 25.6
[2019-01-27] MEDS: SODIUM CHLORIDE 1,000 ML IV SCH (17:51)
[2019-01-27] MEDS: HEPARIN NA (PORCINE) 5,000 UNITS/ML 1ML VIAL SQ SCH (21:09)
--- NOTE | 2019-01-27 23:34 | HOSP ---
Subjective - Review of Symptoms Events since last encounter: Patient was combative when approached and refused CT exam. Study not done. Patient is resting comfortably when not approached. Physical Examination Vital Signs: Vital Signs Temperature 98.2 F 01/27/19 21:06 Pulse Rate 62 01/27/19 21:06 Respiratory Rate 20 01/27/19 21:06 Blood Pressure 130/84 01/27/19 21:06 O2 Sat by Pulse Oximetry (%) 100 01/27/19 16:10 Labs: CBC, BMP 01/27/19 06:00 01/27/19 06:00 Visit type - Emergency Visit Emergency Visit: Yes ED Registration Date: 01/26/19 Care time: The patient presented to the Emergency Department on the above date and was hospitalized for further evaluation of their emergent condition. - New Patient This patient is new to me today: Yes Date on this admission: 01/28/19 - Critical Care Critical Care patient: No
--- NOTE | 2019-01-27 23:44 | PN ---
Physical Exam: SUBJECTIVE: Patient seen and examined at the bedside. She was unresponsive to questioning but would occasionally say recognizable words. Patient appeared generally comfortable in her stretcher but became combative on attempt to examine her. OBJECTIVE: Vital Signs Period Temp Pulse Resp BP Sys/Macias Pulse Ox Last 24 Hr 98.2 F-99.3 F 60-84 16-20 102-130/55-85 97-100 GENERAL: Awake, not alert, not following commands, not oriented. HEAD: Normal with no signs of trauma. EYES: Pupils equal, round and reactive to light, sluggish, sclera with mild icterus. EARS, NOSE, THROAT: Oropharynx clear without exudates. Dry mucous membranes. NECK: Normal range of motion, supple without lymphadenopathy. JVD present. LUNGS: Breath sounds poorly appreciated as patient unable to comply with respiratory exam. No acute crackles, coarse breath sounds, wheezing noted. HEART: Regular rate and rhythm, normal S1 and S2 without murmur, rub. ABDOMEN: Soft, nontender, mildly distended, normoactive bowel sounds, no guarding, no rebound, no masses. Hepatomegaly. MUSCULOSKELETAL: No bony deformities. UPPER EXTREMITIES: 2+ pulses, warm, well-perfused. No cyanosis. No clubbing. No peripheral edema. LOWER EXTREMITIES: 1+ pulses, warm, well-perfused. No calf tenderness. Trace peripheral edema. NEUROLOGICAL: Unable to comply with neurological exam. PSYCHIATRIC: Unresponsive to examination. Will respond with smile to daughter in the room. SKIN: Mild jaundice noted. No angiomata or varices noted externally. Laboratory Results - last 24 hr 01/27/19 01/27/19 01/27/19 00:38 00:38 06:00 WBC RBC Hgb Hct MCV MCH MCHC RDW Plt Count MPV Absolute Neuts (auto) Neutrophils % Lymphocytes % Monocytes % Eosinophils % Basophils % Nucleated RBC % ESR Sodium Cancelled Potassium Cancelled Chloride Cancelled Carbon Dioxide Cancelled Anion Gap Cancelled BUN Cancelled Creatinine Cancelled Est GFR (CKD-EPI)AfAm Cancelled Est GFR (CKD-EPI)NonAf Cancelled POC Glucometer Random Glucose Cancelled Calcium Cancelled Phosphorus 3.2 Magnesium 1.6 L Total Bilirubin Direct Bilirubin AST ALT Alkaline Phosphatase Creatine Kinase 261 H 252 H Creatine Kinase Index 2.1 2.4 CK-MB (CK-2) 5.6 H 6.2 H Troponin I 0.16 H 0.12 H C-Reactive Protein 0.5 H Total Protein Albumin Triglycerides 46 Cholesterol 142 Total LDL Cholesterol 92 HDL Cholesterol 41 Lipase Vitamin B12 433 Serum Folate 15 TSH 2.25 RPR Titer Nonreactive 01/27/19 01/27/19 01/27/19 06:00 06:00 06:24 WBC 5.3 RBC 3.52 L Hgb 12.6 Hct 36.8 MCV 104.6 H MCH 35.8 H MCHC 34.2 RDW 14.0 Plt Count 180 MPV 9.9 Absolute Neuts (auto) 2.7 Neutrophils % 51.2 Lymphocytes % 36.0 Monocytes % 8.8 Eosinophils % 3.6 D Basophils % 0.4 Nucleated RBC % 0 ESR 14 Sodium 144 Potassium 3.7 Chloride 113 H Carbon Dioxide 24 Anion Gap 6 L BUN 17.8 Creatinine 0.6 Est GFR (CKD-EPI)AfAm 101.90 Est GFR (CKD-EPI)NonAf 87.92 POC Glucometer 82 Random Glucose 80 Calcium 8.5 Phosphorus Magnesium Total Bilirubin 1.6 H Direct Bilirubin 0.5 H AST 40 H ALT 21 Alkaline Phosphatase 76 Creatine Kinase Creatine Kinase Index CK-MB (CK-2) Troponin I C-Reactive Protein Total Protein 6.0 L Albumin 2.3 L Triglycerides Cholesterol Total LDL Cholesterol HDL Cholesterol Lipase 307 Vitamin B12 Serum Folate TSH RPR Titer Active Medications Generic Name Dose Route Start Last Admin Trade Name Freq PRN Reason Stop Dose Admin Heparin Sodium (Porcine) 5,000 unit 01/27/19 22:00 01/27/19 21:09 Heparin - SQ 5,000 unit TID NAA Administration Sodium Chloride 1,000 mls @ 42 mls/hr 01/26/19 23:15 01/27/19 17:51 Normal Saline - IV 42 mls/hr ASDIR NAA Administration Lactulose 30 gm 01/27/19 06:00 01/27/19 21:09 Cephulac (Oral Use) PO 30 gm TID NAA Administration Pantoprazole Sodium 40 mg 01/27/19 10:00 01/27/19 11:32 Protonix - PO 40 mg DAILY NAA Administration Propranolol HCl 60 mg 01/27/19 10:00 01/27/19 11:32 Inderal La - PO 60 mg DAILY NAA Administration Rifaximin 550 mg 01/27/19 10:00 01/27/19 22:16 Xifaxan - PO 550 mg BID NAA Administration ASSESSMENT/PLAN: Sonia Aparicio is a 78 year old female with a past medical history of 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 Altered Mental Status - baseline of dementia differential includes hepatic encephalopathy vs. AMS 2/2 dehydration or CVA. Hepatic encephalopathy less likely as ammonia level is not very high and patient has been using lactulose regularly at home, though she has been constipated recently. Additionally patient had signs of volume depletion (high BUN/cr , high NA). Infectious causes of AMS less likely as no ascites on abd CT and no tenderness on abdominal exam make SBP less likely, UA was also clean, and CXR showed focal areas of consolidation. - Obtain MRI of brain, or repeat CT head if patient not able to tolerate MRI - Neurology following, appreciate recommendations - Patient with allergy to ASA > causes rash, holding antiplatelets for now - IVF @ 42cc/hr, hold spironolactone - RPR negative - B12, TSH within refrence range - continuous bedrest, fall precautions History of cirrhosis with hepatic encephalopathy s/p TIPs - continue po lactulose and rifaximin and titrate to 3-4 bowel movements per day Troponemia- likely demand related - troponins 0.06-->0.16, continue to trend - Dr. Gallardo was consulted, recommended to trend trops - f/u echo - tele monitoring HTN - continue home propranolol - holding home spironlactone - f/u with family about whether patient takes propranolol for varices FEN - NS at 42 cc/hr - continue to monitor electrolytes and replete as necessary - speech and swallow consult Prophylaxis - heparin 5000 units subq tid Code - full code Visit type - Emergency Visit Emergency Visit: Yes ED Registration Date: 01/26/19 Care time: The patient presented to the Emergency Department on the above date and was hospitalized for further evaluation of their emergent condition. - New Patient This patient is new to me today: Yes Date on this admission: 01/28/19 - Critical Care Critical Care patient: No - Discharge Referral Referred to [facility] Med [facility].C[facility] No ATTENDING PHYSICIAN STATEMENT I saw and evaluated the patient. I reviewed the resident's note and discussed the case with the resident. I agree with the resident's findings and plan as documented. SUBJECTIVE: OBJECTIVE: ASSESSMENT AND PLAN:
[2019-01-28] MEDS: LACTULOSE 20 GM/30 ML UDC (FOR ORAL USE ONLY) PO SCH ×2 (06:23→14:59)
[2019-01-28] MEDS: HEPARIN NA (PORCINE) 5,000 UNITS/ML 1ML VIAL SQ SCH ×2 (06:24→14:59)
[2019-01-28 07:08] LABS: HEMATOCRIT 35.1 % (32.4-45.2); MCH 35.7 pg (25.7-33.7); MCHC 34.2 g/dl (32.0-36.0); MEAN CELL VOLUME 104.2 fl (80-96); MEAN PLT VOLUME 10.2 fl (7.5-11.1); PLATELET COUNT 190 K/MM3 (134-434); RBC 3.37 M/mm3 (3.60-5.2); RDW 13.8 % (11.6-15.6); WHITE BLOOD COUNT 4.9 K/mm3 (4.0-10.0)
[2019-01-28 07:47] LABS: ALBUMIN 2.4 g/dl (3.4-5.0); BILIRUBIN,TOTAL 1.4 mg/dL (0.2-1); BLOOD UREA NITROGEN 18.4 mg/dL (7-18); CALCIUM 8.7 mg/dL (8.5-10.1); CREATININE 0.8 mg/dL (0.55-1.3); MAGNESIUM 1.8 mg/dL (1.8-2.4); POTASSIUM 4.2 mmol/L (3.5-5.1)
--- NOTE | 2019-01-28 09:59 | PN ---
Progress Note, Physician Chief Complaint: alt MS History of Present Illness: sleepy, intermittently agitated/confused per family currently asleep no other ros available - Current Medication List Current Medications: Active Medications Heparin Sodium (Porcine) (Heparin -) 5,000 unit SQ TID [facility] Last Admin: 01/28/19 06:24 Dose: 5,000 unit Sodium Chloride (Normal Saline -) 1,000 mls @ 42 mls/hr IV ASDIR [facility] Last Admin: 01/27/19 17:51 Dose: 42 mls/hr Lactulose (Cephulac (Oral Use)) 30 gm PO TID [facility] Last Admin: 01/28/19 06:23 Dose: 30 gm Pantoprazole Sodium (Protonix -) 40 mg PO DAILY [facility] Last Admin: 01/27/19 11:32 Dose: 40 mg Propranolol HCl (Inderal La -) 60 mg PO DAILY [facility] Last Admin: 01/27/19 11:32 Dose: 60 mg Rifaximin (Xifaxan -) 550 mg PO BID [facility] Last Admin: 01/27/19 22:16 Dose: 550 mg - Objective Vital Signs: Vital Signs Temperature 97.9 F 01/28/19 06:00 Pulse Rate 64 01/28/19 06:00 Respiratory Rate 20 01/28/19 06:00 Blood Pressure 100/51 L 01/28/19 06:00 O2 Sat by Pulse Oximetry (%) 100 01/27/19 16:10 Constitutional: Yes: Well Nourished, No Distress, Calm Cardiovascular: Yes: Regular Rate and Rhythm, S1, S2. No: Gallop, Murmur Respiratory: Yes: Regular, CTA Bilaterally. No: Accessory Muscle Use, Rales Extremities: No: Cold Edema: No Neurological: No: Oriented, Seizure Psychiatric: No: Agitated Labs: CBC, BMP 01/28/19 05:45 01/28/19 05:45 INR, PTT INR 1.28 (0.83-1.09) H 01/26/19 18:11 Assessment/Plan tele: NSR, artifact IMP: 1. Altered mental status, likely due to hepatic encephalopathy (mult prior episodes/admits, ammonia elevated) sec to cirrhosis (sec to schistosomiasis) 2. r/o right frontal lobe infarct on CT, per neuro 3. history of NSTEMI several years ago, with ischemia on MPI that resolved without cath, ? vasospastic--stable since on low dose nitrates. no signs ACS here REC: -Treatment of hepatic encephalopathy as per primary team -Neuro input appreciated--recommend aspirin be discussed with GI (at [facility]) who knows her well regarding ? presence of varices -Cont Propanolol and Aldactone for chronic cirrhosis/portal HTN -OK to hold nitrates given soft BPs, observe for angina sx's -D/C TELEMETRY
[2019-01-28] MEDS ORDERED: PT OWN MED DRAWER 7, Y5N ONE (10:30)
[2019-01-28] MEDS: RIFAXIMIN 550 MG TABLET (UD) PO SCH (10:37)
[2019-01-28] MEDS: PANTOPRAZOLE 40 MG TABLET (FP) PO SCH (10:38)
--- NOTE | 2019-01-28 11:30 | PN ---
Progress Note (short form) - Note Progress Note: 78 year old female with past medical history of cirrhosis, Dementia, Stroke, HTN, CAD and subdural hematoma. She presented with worsening of mental status. There is no history of seizure or high grade fever or any fall. She is back to normal patient was seen with her son at bedside. NEUROLOGICAL EXAMINATION Alert , able to follow command, neck is supple, oriented x 0 ( as per son this is her baseline) eomi, pupils reactive, no face asymmetry moving all extremity ct head showed there is? right frontal lobe infarc mri of brain unremarkable Assessment/Plan worsening of mental status, most likley acute hepatic encephalopathy, unlikley to be stroke Plan: continue current level of care - supportive care Thanking you so much Abrahan Mcdonald MD
[2019-01-28] MEDS ORDERED: SODIUM CHLORIDE 0.45% 1,000 ML IV SCH (11:45)
[2019-01-28 11:57] VITALS: BP 125/54; PULSE 65
--- NOTE | 2019-01-28 13:07 | PN ---
Teaching Attending Note Name of Resident: Peggy Parker ATTENDING PHYSICIAN STATEMENT I saw and evaluated the patient. I reviewed the resident's note and discussed the case with the resident. I agree with the resident's findings and plan as documented. SUBJECTIVE: no events over night except for being agitated. OBJECTIVE: awake, pleasant,smiling. laughing . pushes away examiner CV: RRR, no MRG Lungs: did not allow exam , but clear anteriorly Abd: soft, NT, ND, NL BS Ext: no edema or erythema on upper or lower Ext. L hip scratch cervantes. pushes away examiner when I try to touch both hips or arms or any place in her body yellow stool in diaper ASSESSMENT AND PLAN: 78 y/o lady with h/o cirrhosis due to schistosomiasis , splenic vein embolization , hepatic encephalopathy, CAD, HTN, CVA , s/p TIPS, chronic subdural hematoma, and dementia who presented with AMS. 1- AMS: doubt hepatic encephalopathy. could be due to volume depletion , today after hydration , she is more awake, and laughing. - cont IVF , switch to 1/2 NS - No brain infarct on MRI - hold off antiplatelets as there is no stroke. was not on any before , due to ICH and risk of continued falling. allergic to asa 2- H/o Cirrhosis , and hepatic encephalopathy , s/p TIPS - will cont her lactulose and rifaximin - goal 3-4 BM a day. - hold spironolactone as above - has varices s/p banding per daughter. - cont propranolol 3- Eelvated trop: likely demand ischemia. EKG with L axis, and QTC of 501, no acute ischemic changes. - trend. - echo pending - tele 4-DVT PX: start SQ heparin not ambulatory at base line . PT eval. will d/w family regarding dispo. repeat BMP in pm
[2019-01-28 17:07] LABS: BLOOD UREA NITROGEN 15.5 mg/dL (7-18); CREATININE 0.8 mg/dL (0.55-1.3)
--- NOTE | 2019-01-28 20:40 | DS ---
Physical Exam: SUBJECTIVE: Patient seen and examined at the bedside. This morning the patient is laughing and smiling in her bed and is much more interactive than previously. The patient is still combative on attempt to examine her. OBJECTIVE: Vital Signs Period Temp Pulse Resp BP Sys/Macias Pulse Ox Last 24 Hr 97.9 F-98.4 F 62-65 18-20 100-138/51-84 PHYSICAL EXAM GENERAL: Awake, not alert, not very verbal, following some commands, laughing and smiling. HEAD: Normal with no signs of trauma. EYES: Pupils equal, round and reactive to light, sluggish, sclera with mild icterus. EARS, NOSE, THROAT: Oropharynx clear without exudates. Dry mucous membranes. NECK: Normal range of motion, supple without lymphadenopathy. JVD present. LUNGS: Breath sounds poorly appreciated as patient unable to comply with respiratory exam. No acute crackles, coarse breath sounds, wheezing noted. HEART: Regular rate and rhythm, normal S1 and S2 without murmur, rub. ABDOMEN: Soft, nontender, mildly distended, normoactive bowel sounds, no guarding, no rebound, no masses. Hepatomegaly. MUSCULOSKELETAL: No bony deformities. UPPER EXTREMITIES: 2+ pulses, warm, well-perfused. No cyanosis. No clubbing. No peripheral edema. LOWER EXTREMITIES: 1+ pulses, warm, well-perfused. No calf tenderness. Trace peripheral edema. NEUROLOGICAL: Unable to comply with neurological exam. PSYCHIATRIC: Unresponsive to examination. Will respond with smile to daughter in the room. SKIN: Mild jaundice noted. No angiomata or varices noted externally. LABS Laboratory Results - last 24 hr 01/28/19 01/28/19 01/28/19 05:45 05:45 16:28 WBC 4.9 RBC 3.37 L Hgb 12.0 Hct 35.1 MCV 104.2 H MCH 35.7 H MCHC 34.2 RDW 13.8 Plt Count 190 MPV 10.2 Sodium 148 H 144 Potassium 4.2 4.0 Chloride 113 H 116 H Carbon Dioxide 23 23 Anion Gap 12 5 L BUN 18.4 H 15.5 Creatinine 0.8 0.8 Est GFR (CKD-EPI)AfAm 82.42 82.42 Est GFR (CKD-EPI)NonAf 71.11 71.11 Random Glucose 82 90 Calcium 8.7 8.0 L Phosphorus 3.0 Magnesium 1.8 Total Bilirubin 1.4 H AST 49 H ALT 24 Alkaline Phosphatase 75 Troponin I 0.04 Total Protein 6.0 L Albumin 2.4 L HOSPITAL COURSE: Date of Admission:01/26/19 Sonia Aparicio is a 78 year old female with a past medical history of 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 Patient has a baseline of dementia and differential for her new AMS included hepatic encephalopathy vs. AMS 2/2 dehydration or CVA. Workup included MRI of the brain which did not show any evidence of infarct. The patient also had an abdominal CT which did not show any evidence of acites. On exam her abdomen was non tender and her UA was also clean, making infectious causes less likely. CXR showed focal areas of consolidation. Patient also had an ammonia level drawn which was not remakably elevated. The patient had signs of volume depletion ( high BUN/cr , high NA), and after gentle hydration overnight with IV NS the patient was greatly improved. The patient's family was called to assess whether the patient seemed to be returned to her baseline. The patient's family agreed that she was an a plan was made to discharge the patient with plans for follow up with her PCP and plans for visiting nurse service and home PT. Date of Discharge: 01/28/19 Minutes to complete discharge: 40 Discharge Summary Reason For Visit: HEPATIC ENCEPHALOPATHY Condition: Improved - Instructions Diet, Activity, Other Instructions: You were admitted to the hospital because you were found to have altered mental status. While in the hospital your work up included labs, which were not significantly different from your baseline. You also had imaging done, including an abdominal CT and and MRI of your brain, neither of which showed any acute pathology. While in the hospital we gave you your home medicines including lactulose and rifamixin. We also gave you IV fluids because you were dry . The next day your clinical status improved significantly, and your family confirmed you had returned to your baseline. The most likely cause of your symptoms was dehydration. We are discharging you home with plans to coordinate visiting nurse service and physical therapy at home. Please continue to take all of your home medications as prescribed and try to drink water at home. Please follow up with your primary care doctor, Dr. Marsh, within 1 week of discharge from the hospital. Please follow up with Dr. Whitehead or your regular GI doctor within 1 week of discharge from the hospital. please follow up with your director of real estate , or with Dr. Valverde If you or your family notice symptoms of confusion, altered mental status, or word finding difficulties please return to the Emergency Department immediately. Referrals: Toni Marsh MD [Staff Physician] - 1 Week Omar Whitehead DO [Staff Physician] - Nav Valverde MD [Staff Physician] - Disposition: VNS/HOME HEALTH CARE - Home Medications Comprehensive Discharge Medication List: Ambulatory Orders Rifaximin [Xifaxan -] 550 mg PO BID tablet 06/09/17 Spironolactone [Aldactone -] 25 mg PO DAILY 08/06/17 Lactulose [Generlac] 45 gm PO TID 01/26/19 Omeprazole 40 mg PO DAILY 01/26/19 Propranolol HCl [Propranolol HCl ER] 60 mg PO DAILY 01/26/19 This patient is new to me today: No Emergency Visit: Yes ED Registration Date: 01/26/19 Care time: The patient presented to the Emergency Department on the above date and was hospitalized for further evaluation of their emergent condition. Critical Care patient: No - Discharge Referral [facility]erred to [facility] No ATTENDING PHYSICIAN STATEMENT I saw and evaluated the patient. I reviewed the resident's note and discussed the case with the resident. I agree with the resident's findings and plan as documented. SUBJECTIVE: OBJECTIVE: ASSESSMENT AND PLAN:
[2019-01-28 23:15] VITALS: TEMP 98.5
== END 2019-01-28 21:30 | disposition home health service (06) | DRG 442 ==
LOC: JER 15:11 → JERBED 21:03 → J4W 01-27 16:56 → J7W 01-28 17:51
PROVIDERS: ADMIT Internal Medicine; ATTEND Internal Medicine
DX: K72.90 Hepatic failure, unspecified without coma (principal); B65.9 Schistosomiasis, unspecified; I24.8 Other forms of acute ischemic heart disease; E86.0 Dehydration; F03.90 Unspecified dementia, unspecified severity, without behavioral disturbance, psychotic disturbance, mood disturbance, and anxiety; I10 Essential (primary) hypertension; K74.60 Unspecified cirrhosis of liver; I25.10 Atherosclerotic heart disease of native coronary artery without angina pectoris; R41.82 Altered mental status, unspecified; D75.89 Other specified diseases of blood and blood-forming organs
CPT/HCPCS: 36415; 70450-TC; 70551-TC; 71045-TC-FY; 74177-TC; 76705-TC; 80048; 80053; 80061; 81003; 82140; 82248; 82550; 82553; 82607; 82746; 82803; 82962; 83690; 83721; 83735; 84100; 84443; 84484; 85025; 85027; 85610; 85651; 85730; 86140; 86593; 86850; 86900; 86901; 87086; 93005; 93010; 99284-25; J1644; J7030

== ENCOUNTER 2019-07-03 15:57 | Emergency (ER) | payer OTHER ==
[2019-07-03 16:38] VITALS: BP 112/100; PULSE 92; TEMP 99.2; BMI 16.8
--- NOTE | 2019-07-03 17:35 | PDOC ---
Documentation entered by Scotty Foy SCRIBE, acting as scribe for Kylah Vidal MD. Kylah Vidal MD: This documentation has been prepared by the Danii chadwick Angel, SCRIBE, under my direction and personally reviewed by me in its entirety. I confirm that the documentation accurately reflects all work, treatment, procedures, and medical decision making performed by me. Attending Attestation - Resident Resident Name: Suresh Kent - ED Attending Attestation I have performed the following: I have examined & evaluated the patient, The case was reviewed & discussed with the resident, I agree w/resident's findings & plan, Exceptions are as noted - HPI HPI: 07/03/19 17:33 78-year-old female brought by ambulance from home for longstanding fungal infections in the diaper area HPI daughter states that there is home care during the day and the PCP had prescribed antifungal medications but the rash has not cleared - Physicial Exam PE: 07/03/19 18:08 78-year-old female brought to the emergency room for worsening diaper rash Head normocephalic atraumatic Lungs clear to auscultation Abdomen is flat There is diffuse erythematous rash on the buttocks and perineum Skin no signs of abscess Extremities there is no significant edema lower extremities Neuro alert, moving all extremities - Medical Decision Making 07/03/19 17:34 78-year-old female with a complicated past medical history of cirrhosis secondary to schistosomiasis, hepatic encephalopathy, dementia, subdural hematoma status post bur hole, CVA, coronary artery disease, hypertension Rectal temp is 99.2 We will straight cath for UA to rule out UTI Past surgical history bur hole, C-sections, breast abscess 07/03/19 17:35 Spoke with both the daughter and the healthcare religious assistant about the importance of keeping the area dry
--- NOTE | 2019-07-03 17:36 | PDOC ---
History of Present Illness <Kylah Vidal - Last Filed: 07/03/19 18:56> <Suresh Kent - Last Filed: 07/03/19 19:07> - General Chief Complaint: Diaper Rash Stated Complaint: ULSERS Time Seen by Provider: 07/03/19 16:25 Past History <Kylah Vidal - Last Filed: 07/03/19 18:56> - Past Medical History Anemia: Yes Asthma: No Cancer: No Cardiac Disorders: Yes (CT, CAD) CVA: Yes COPD: No CHF: No Dementia: Yes (encephalopathy) Diabetes: No GI Disorders: Yes (ULCER) Disorders: No HTN: Yes Hypercholesterolemia: No Liver Disease: Yes (cirrhosis) Seizures: No Thyroid Disease: No - Surgical History Abdominal Surgery: Yes Appendectomy: No Cardiac Surgery: No Cholecystectomy: Yes Lung Surgery: No Neurologic Surgery: No Orthopedic Surgery: No - Immunization History Immunization Up to Date: No - Psycho Social/Smoking Cessation Hx Smoking History: Never smoked Have you smoked in the past 12 months: No Hx Alcohol Use: No Drug/Substance Use Hx: No Substance Use Type: None Hx Substance Use Treatment: No <Suresh Kent - Last Filed: 07/03/19 19:07> - Past Medical History Allergies/Adverse Reactions: Allergies Allergy/AdvReac Type Severity Reaction Status Date / Time aspirin Allergy Unknown Verified 10/05/18 15:17 Home Medications: Ambulatory Orders Rifaximin [Xifaxan -] 550 mg PO BID tablet 06/09/17 Spironolactone [Aldactone -] 25 mg PO DAILY 08/06/17 Lactulose [Generlac] 45 gm PO TID 01/26/19 Omeprazole 40 mg PO DAILY 01/26/19 Propranolol HCl [Propranolol HCl ER] 60 mg PO DAILY 01/26/19 Cephalexin [Keflex] 500 mg PO BID #14 capsule 07/03/19 Clotrimazole/Betameth Dip/Zinc [Dermacinrx Therazole Kevin] 135 gm TP BID #1 combo..pkg 07/03/19 *Physical Exam - Vital Signs Last Vital Signs Temp Pulse Resp BP Pulse Ox 99.2 F 92 H 20 112/100 98 07/03/19 16:35 07/03/19 16:35 07/03/19 16:35 07/03/19 16:35 07/03/19 16:35 <Kylah Vidal - Last Filed: 07/03/19 18:56> - Vital Signs Last Vital Signs Temp Pulse Resp BP Pulse Ox 99.2 F 92 H 20 112/100 98 07/03/19 16:35 07/03/19 16:35 07/03/19 16:35 07/03/19 16:35 07/03/19 16:35 <Suresh Kent - Last Filed: 07/03/19 19:07> ED Treatment Course - ADDITIONAL ORDERS Additional order review: Laboratory Results 07/03/19 17:30 Urine Color Dk yellow Urine Appearance Cloudy Urine pH 5.0 D Ur Specific Drayton 1.023 Urine Protein Negative Urine Glucose (UA) Negative Urine Ketones Trace H Urine Blood Negative Urine Nitrite Positive H Urine Bilirubin 1+ H Urine Urobilinogen 1.0 Ur Leukocyte Esterase 1+ H Urine WBC (Auto) 15 Urine Casts (Auto) 11 U Epithel Cells (Auto) 7.2 Urine Bacteria (Auto) >9000 <Kylah Vidal - Last Filed: 07/03/19 18:56> Medical Decision Making - Medical Decision Making 07/03/19 18:56 pt has UTI and will start antibiotics and RX meds to her pharmacy <Kylah Vidal - Last Filed: 07/03/19 18:56> - Medical Decision Making 07/03/19 17:31 78F PMH CVA, STEMI, hepatic encephalopathy BIBEMS from home for painful diaper rash. Rash has been there for months and pt currently on multiple creams. No fevers or chills. Pt is nonverbal at baseline, hx by daughter at bedside. Rash has become more painful in the past few days. Has aide at bedside, not 24 hour. ASA allergy VS: afebrile GEN: nonverbal at baseline, awake. HEENT: NC/ATNo facial asymmetry CV: S1/S2, RRR, no m/r/g LUNG: CTAB, no wheezes, crackles, rales, rhonchi. GI: Soft, ndnt, +BS, no guarding, no rebound. : there is erythema of the region w/ excoriations but no vesicles. Ointment is covering affected region. MSK: No obvious deformities of all extremities. SKIN: Warm, dry, no rashes appreciated. PSYCH: Normal mood and affect. NEURO: Moving all extremities 78F w/ uncontrolled diaper rash. Likely nicky - ua to r/o UTI - instructed daughter and home support worker on proper diaper care, importance of keeping groin dry, and using generous amounts of cream 07/03/19 19:05 +UTI yonny coppola w/ pcp fu <Suresh Kent - Last Filed: 07/03/19 19:07> Discharge <YoungKylahbreanna Bojorquez - Last Filed: 07/03/19 18:56> - Discharge Information Problems reviewed: Yes - Admission No <Suresh Kent - Last Filed: 07/03/19 19:07> - Discharge Information Clinical Impression/Diagnosis: Diaper rash UTI (urinary tract infection) Qualifiers: Urinary tract infection type: site unspecified Hematuria presence: without hematuria Qualified Code(s): N39.0 - Urinary tract infection, site not specified Condition: Stable Disposition: HOME - Additional Discharge Information Prescriptions: Cephalexin [Keflex] 500 mg PO BID #14 capsule Clotrimazole/Betameth Dip/Zinc [Dermacinrx Therazole Kevin] 135 gm TP BID #1 combo..pkg - Follow up/Referral Referrals: Toni Marsh MD [Primary Care Provider] - - Patient Discharge Instructions Patient Printed Discharge Instructions: DI for Diaper Rash, DI for Urinary Tract Infection (UTI) Additional Instructions: Follow up with your primary care doctor in the next 3-5 days Make sure to keep the groin dry with frequent changes and proper drying of the of the area. Apply liberal amounts of the antifungal cream. Apply zinc oxide cream liberally at night. We sent the antifungal cream to your pharmacy, please pick it up and use as directed. You were found to have a urine infection. You received your first dose of antibiotics in the Emergency Department. We sent additional antibiotics to your pharmacy, please pick it up and take as prescribed. Return to the Emergency Department if you experience: - fevers - increasing pain - changes in behavior - anything that concerns you Natan un seguimiento con ash mdico de atencin primaria en los prximos 3-5 alejandro. Asegrese de mantener la lisa seca con cambios frecuentes y un secado adecuado del micah. Aplique cantidades abundantes de la crema antimictica. Aplicar crema de xido de zinc generosamente por la noche. Enviamos la crema antimictica a ash farmacia, recjala y km segn las indicaciones. Se descubri que tienes tricia infeccin de orina. Recibi ash primera dosis de antibiticos en el Departamento de Emergencias. Enviamos antibiticos adicionales a ash farmacia, recjalo y tmelo soumya se lo recetaron. Regrese al Departamento de Emergencias si experimenta: - fiebres - dolor creciente - cambios en el comportamiento - cualquier cosa que te preocupe Print Language: [id number] - Post Discharge Activity
[2019-07-03 18:44] LABS: EPI CELLS 7.2 /HPF (0-5/HPF); HYALINE CASTS 11 /lpf (0-8); URINE APPEARANCE CLOUDY; URINE BACTERIA >9000 /hpf (NEGATIVE); URINE BILIRUBIN 1+ (NEGATIVE); URINE COLOR DK YELLOW; URINE GLUCOSE (UA) NEGATIVE (NEGATIVE); URINE KETONE TRACE (NEGATIVE); URINE LEUK ESTERASE 1+ (NEGATIVE); URINE NITRITE POSITIVE (NEGATIVE); URINE PROTEIN NEGATIVE (NEGATIVE); URINE WBC 15 /hpf (0-5)
[2019-07-03] MEDS ORDERED: CEPHALEXIN MONOHYDRATE 500 MG CAPSULE (UD) PO ONE (18:55)
[2019-07-03 19:10] LABS: URINE RBC 19.5 /hpf (0-4)
[2019-07-03] MEDS ORDERED: CEPHALEXIN MONOHYDRATE 500 MG CAPSULE (UD) ONE (19:13)
== END 2019-07-03 21:24 | disposition home or self-care (01) ==
LOC: JER 15:57
DX: N39.0 Urinary tract infection, site not specified (principal); L22 Diaper dermatitis; I25.10 Atherosclerotic heart disease of native coronary artery without angina pectoris; I10 Essential (primary) hypertension; I25.2 Old myocardial infarction; F03.90 Unspecified dementia, unspecified severity, without behavioral disturbance, psychotic disturbance, mood disturbance, and anxiety; D64.9 Anemia, unspecified; Z86.73 Personal history of transient ischemic attack (TIA), and cerebral infarction without residual deficits; Z87.19 Personal history of other diseases of the digestive system; Z79.82 Long term (current) use of aspirin
CPT/HCPCS: 81003; 99283-25